=== PATIENT | female | born 1950 | race Caucasian/White ===

== ENCOUNTER 2018-02-21 19:42 | Inpatient (IN) | payer OTHER, MEDICARE ==
[~2018-02-21] VITALS: Ht 154.9 cm; Wt 126.8 kg
[~2018-02-21 19:42] MED LIST: CELE200 PO; GLUCTAB PO; HYDR12.56 PO; RAMI1.252 PO; TRAM50 PO
[2018-02-21 19:54] VITALS: BP 185/97; PULSE 115; RESP 22; TEMP 97.8; O2SAT 94
[2018-02-21 20:01] VITALS: RESP 18; O2SAT 94
--- NOTE | 2018-02-21 20:31 | PD ---
HPI Chief Complaint: Musculoskeletal Complaint Time Seen by Provider: 19:46 Travel History International Travel<30 days: No Contact w/Intl Traveler<30days: No Traveled to known affect area: No History of Present Illness HPI 67-year-old female that presents to the ED for evaluation of left sided weakness , slurred speech as well as left leg pain. Per patient and report given by ambulance patient apparently was seen at [facility] [place] today for evaluation of hypertension. Patient was given lisinopril. Patient had blood work and imaging that was essentially unremarkable. No CAT scan was done. Per patient she did complain of the left-sided weakness at the time and unclear why CT was not done. Patient denies any urinary or bowel movement issues. Per patient the pain on the left leg is from the knee down the ankle and has been ongoing since being released from the hospital. She did not have it when she went to the hospital. Per patient the weakness was present as well as the hypertension and tachycardia when she was in the hospital. Per patient she did took one lisinopril today with minimal improvement of symptoms. Her blood pressure allegedly was in the 200s systolic and now came down to the 180s. Patient denies any falls or injuries. Takes no blood thinners. Denies any surgeries to her legs but states that she has chronic edema. She denies any history of heart failure heart disease. All symptoms appear to be affecting the left side. Per patient she is noted that her speech is slurred since yesterday. All of her symptoms started yesterday except for the left leg pain. Denies any numbness, tingling. Denies any back or neck pain. Denies any fevers chills or sweats. Per patient she ambulates with a walker. Pain per patient is 7 out of 10 on the left leg. She does have a history of diabetes as well. PFSH Past Medical History Arthritis: Yes Diabetes: Yes Patient Takes Glucophage: Yes Gout: Yes Hypertension: Yes Tetanus Vaccination: Unknown Past Surgical History Other Surgery: Yes (HERNIA) Social History Alcohol Use: No Tobacco Use: No Substance Use: No Allergies-Medications (Allergen,Severity, Reaction): Coded Allergies: penicillin G (Unverified Allergy, Severe, Anaphylaxis, 06/06/17) Reported Meds & Prescriptions Reported Meds & Active Scripts Active Reported Ramipril 1.25 Mg Cap 1.25 Mg PO DAILY Esomeprazole DR 40 Mg Capdr 40 Mg PO DAILY Lisinopril 10 Mg Tab 10 Mg PO DAILY Celebrex (Celecoxib) 200 Mg Cap 200 Mg PO DAILY Metformin (Metformin HCl) 1,000 Mg Tab 1,000 Mg PO BIDPC Metoprolol Tartrate 100 Mg Tab 100 Mg PO DAILY Furosemide 40 Mg Tab 40 Mg PO DAILY Review of Systems Except as stated in HPI: all other systems reviewed are Neg Physical Exam Narrative GENERAL: Very obese SKIN: Warm and dry. HEAD: Atraumatic. Normocephalic. EYES: Pupils equal and round 4 mm reactive to light and accommodation. No scleral icterus. No injection or drainage. ENT: No nasal bleeding or discharge. Mucous membranes pink and moist. Tongue is midline. No uvula deviation. NECK: Trachea midline. No JVD. CARDIOVASCULAR: Regular rate and rhythm. No murmurs, S3, S4. RESPIRATORY: No accessory muscle use. Clear to auscultation. Breath sounds equal bilaterally. GASTROINTESTINAL: Abdomen soft, non-tender, nondistended. Hepatic and splenic margins not palpable. MUSCULOSKELETAL: Extremities without clubbing, cyanosis, or edema. No obvious deformities. Full range of motion of the upper and lower extremities bilaterally. Patient does have slight weakness on the left side compared to the right but very minimal if any. Patient does have 2+ pulses on all extremities. Patient does have 1+ pitting edema on the extremities bilaterally. No lumbar, thoracic, cervical spine tenderness to palpation. NEUROLOGICAL: Awake and alert. No obvious cranial nerve deficits. Motor grossly within normal limits. Five out of 5 muscle strength in the arms and legs. Slight slurred speech. PSYCHIATRIC: Appropriate mood and affect; insight and judgment normal. Data Data Last Documented VS Vital Signs Date Time Temp Pulse Resp B/P (MAP) Pulse Ox O2 Delivery O2 Flow Rate FiO2 02/21/18 20:01 18 94 Room Air 02/21/18 19:54 97.8 115 185/97 (126) Orders Orders Electrocardiogram (02/21/18 19:55) Complete Blood Count With Diff (02/21/18 19:55) Comprehensive Metabolic Panel (02/21/18 19:55) Ckmb (Isoenzyme) Profile (02/21/18 19:55) Troponin I (02/21/18 19:55) Prothrombin Time / Inr (Pt) (02/21/18 19:55) Act Partial Throm Time (Ptt) (02/21/18 19:55) Urinalysis - C+S If Indicated (02/21/18 19:55) Magnesium (Mg) (02/21/18 19:55) Thyroid Stimulating Hormone (02/21/18 19:55) Chest, Single Ap (02/21/18 19:55) Ct Brain W/O Iv Contrast(Rout) (02/21/18 19:55) Iv Access Insert/Monitor (02/21/18 19:55) Ecg Monitoring (02/21/18 19:55) Oximetry (02/21/18 19:55) Us Leg Venous Doppler (02/21/18 ) Tibia/Fibula (Ap/Lat) (02/21/18 ) Ct Pulmonary Angiogram (02/21/18 ) Iohexol 350 Inj (Omnipaque 350 Inj) (02/21/18 22:19) Admit Order (Ed Use Only) (02/21/18 22:54) Labs Laboratory Tests Test 02/21/18 20:30 02/21/18 20:40 White Blood Count 11.1 TH/MM3 Red Blood Count 5.30 MIL/MM3 Hemoglobin 16.0 GM/DL Hematocrit 46.5 % Mean Corpuscular Volume 87.7 FL Mean Corpuscular Hemoglobin 30.3 PG Mean Corpuscular Hemoglobin Concent 34.5 % Red Cell Distribution Width 14.3 % Platelet Count 245 TH/MM3 Mean Platelet Volume 8.9 FL Neutrophils (%) (Auto) 78.3 % Lymphocytes (%) (Auto) 15.7 % Monocytes (%) (Auto) 5.5 % Eosinophils (%) (Auto) 0.2 % Basophils (%) (Auto) 0.3 % Neutrophils # (Auto) 8.7 TH/MM3 Lymphocytes # (Auto) 1.7 TH/MM3 Monocytes # (Auto) 0.6 TH/MM3 Eosinophils # (Auto) 0.0 TH/MM3 Basophils # (Auto) 0.0 TH/MM3 CBC Comment DIFF FINAL Differential Comment Prothrombin Time 10.4 SEC Prothromb Time International Ratio 1.0 RATIO Activated Partial Thromboplast Time 24.3 SEC Blood Urea Nitrogen 18 MG/DL Creatinine 1.16 MG/DL Random Glucose 145 MG/DL Total Protein 7.2 GM/DL Albumin 3.7 GM/DL Calcium Level 9.7 MG/DL Magnesium Level 1.4 MG/DL Alkaline Phosphatase 109 U/L Aspartate Amino Transf (AST/SGOT) 17 U/L Alanine Aminotransferase (ALT/SGPT) 41 U/L Total Bilirubin 0.7 MG/DL Sodium Level 139 MEQ/L Potassium Level 3.8 MEQ/L Chloride Level 104 MEQ/L Carbon Dioxide Level 24.5 MEQ/L Anion Gap 11 MEQ/L Estimat Glomerular Filtration Rate 47 ML/MIN Total Creatine Kinase 54 U/L Troponin I 0.09 NG/ML Thyroid Stimulating Hormone 3rd Gen 3.310 uIU/ML Urine Color YELLOW Urine Turbidity CLEAR Urine pH 6.0 Urine Specific [place] 1.013 Urine Protein NEG mg/dL Urine Glucose (UA) NEG mg/dL Urine Ketones NEG mg/dL Urine Occult Blood NEG Urine Nitrite NEG Urine Bilirubin NEG Urine Urobilinogen LESS THAN 2.0 MG/DL Urine Leukocyte Esterase TRACE Urine WBC 2 /hpf Urine Squamous Epithelial Cells 2 /hpf Microscopic Urinalysis Comment CULT NOT INDICATED MDM Medical Decision Making Medical Screen Exam Complete: Yes Emergency Medical Condition: Yes Medical Record Reviewed: Yes Interpretation(s) CBC & BMP Diagram 02/21/18 20:30 Total Protein 7.2, Albumin 3.7, Calcium Level 9.7, Magnesium Level 1.4 L, Alkaline Phosphatase 109, Aspartate Amino Transf (AST/SGOT) 17, Alanine Aminotransferase (ALT/SGPT) 41, Total Bilirubin 0.7 Last Impressions Chest X-Ray 02/21/181954 Signed Impressions: Service Date/Time: February 20:01 - CONCLUSION: 1. Minimal basilar atelectasis. Andrés Recinos MD Tibia/Fibula X-Ray 02/21/18 Signed Impressions: Service Date/Time: February 20:03 - CONCLUSION: 1. Advanced osteoarthritis of the left knee. No acute bony abnormality. Andrés Recinos MD Lower Extremity Ultrasound 02/21/18 Signed Impressions: Service Date/Time: February 21:23 - CONCLUSION: 1. Negative for deep venous thrombosis. There is a left popliteal fossa cyst measuring up to 5.6 x 4.2 x 1.[address] cm[address] Andrés Recinos MD CT head negative for acute disease CT pulm negative for acute disease Differential Diagnosis Hypertension versus hypertensive emergency versus CVA versus TIA versus DVT versus weakness versus normal exam versus fracture Narrative Course 67-year-old female that presents to the ED for evaluation of left-sided weakness , slurred speech and left leg pain. Patient was properly examined and was found to have signs and symptoms of unclear etiology but definitely concerning for possible CVA versus TIA. I did review the patient's paperwork from the [facility]. No CT was ordered per orders. Unclear as to why but unclear if the patient actually complained of the same symptoms she is complaining now. I will try to get the medical records from [facility]. Labs and imaging were ordered here. Patient was found to be slightly tachycardic and hypertensive. Labs and imaging showed positive troponin otherwise unremarkable for acute disease. Patient still hypertensive here. Patient complains of left- sided weakness with slurred speech that started since last night. Patient does have risk factors for CVA. The recommend further workup for TIA versus CVA. My attending Dr Clarke agrees with plan. Was able to get records from [facility] from today and patient apparently complained of HTN and urinary incontinence since sunday. No mention of slurred speech or weakness on the note. No troponin ordered during that evaluation to compare. Patient agrees with admission. ARNEL phelps and Dr Martínez agrees to admission. Diagnosis Primary Impression: Left-sided weakness Additional Impressions: Hypertension Qualified Codes: I10 - Essential (primary) hypertension Elevated troponin Admitting Information Admitting Physician Requests: Aldair Ward February 21, 2018 20:31
--- NOTE | 2018-02-21 20:49 | RADRPT ---
EXAM DATE/TIME: 02/21/2018 20:01 [facility] COMPARISON: No previous studies available for comparison. INDICATIONS : Syncope MEDICAL HISTORY : None. SURGICAL HISTORY : None. ENCOUNTER: Initial ACUITY: 1 day PAIN SCORE: 0/10 LOCATION: Bilateral chest FINDINGS: A single view of the chest demonstrates the lungs to be symmetrically aerated without evidence of mas s, infiltrate or effusion. Mild basilar and dependent atelectasis. The cardiomediastinal contours are unremarkable. Osseous structures are intact. CONCLUSION: 1. Minimal basilar atelectasis. Andrés Recinos MD on February 21, 2018 at 20:47 Board Certified Radiologist. This report was verified electronically.
--- NOTE | 2018-02-21 20:53 | RADRPT ---
EXAM DATE/TIME: 02/21/2018 20:03 [facility] COMPARISON: No previous studies available for comparison. INDICATIONS : Pain MEDICAL HISTORY : None. SURGICAL HISTORY : None. ENCOUNTER: Initial ACUITY: 1 day PAIN SCORE: 3/10 LOCATION: Left lower extremity FINDINGS: Two view examination of the left tibia demonstrates advanced osteoarthritis of the left knee especial ly medially. No acute fracture or dislocation. CONCLUSION: 1. Advanced osteoarthritis of the left knee. No acute bony abnormality. Andrés Recinos MD on February 21, 2018 at 20:48 Board Certified Radiologist. This report was verified electronically.
[2018-02-21 20:59] LABS: AUTOMATED NEUTROPHIL # 8.7 TH/MM3 (1.8-7.7); BASOPHIL % 0.3 % (0.0-2.0); EOSINOPHIL % 0.2 % (0.0-4.0); HEMATOCRIT 46.5 % (35.0-46.0); LYMPH % 15.7 % (9.0-44.0); LYMPHOCYTE # 1.7 TH/MM3 (1.0-4.8); MEAN CELL VOLUME 87.7 FL (80.0-100.0); MEAN CORPUSCULAR HEMOGLOBIN 30.3 PG (27.0-34.0); MEAN CORPUSCULAR HGB CONC 34.5 % (32.0-36.0); MEAN PLATELET VOLUME 8.9 FL (7.0-11.0); MONO % 5.5 % (0.0-8.0); MONOCYTE # 0.6 TH/MM3 (0-0.9); NEUT % 78.3 % (16.0-70.0); PLATELET COUNT 245 TH/MM3 (150-450); RED CELL DISTRIBUTION WIDTH 14.3 % (11.6-17.2); WHITE BLOOD COUNT 11.1 TH/MM3 (4.0-11.0)
[2018-02-21 21:05] LABS: BILIRUBIN, URINE NEG (NEG); BLOOD, URINE NEG (NEG); GLUCOSE,URINE NEG (NEG); KETONE, URINE NEG (NEG); NITRITE,URINE NEG (NEG); SQUAMOUS EPITHELIAL CELL URINE 2 /hpf (0-5); URINE COLOR YELLOW (YELLW/STRAW); URINE LEUKOCYTE ESTERASE TRACE (NEG)
[2018-02-21 21:22] LABS: PROTHROMBIN TIME - PATIENT 10.4 SEC (9.8-11.6)
[2018-02-21 21:23] LABS: ALBUMIN 3.7 GM/DL (3.4-5.0); AST (GOT) 17 U/L (15-37); BICARBONATE 24.5 MEQ/L (21.0-32.0); BLOOD UREA NITROGEN 18 MG/DL (7-18); CALCIUM 9.7 MG/DL (8.5-10.1); CHLORIDE 104 MEQ/L (98-107); CREATININE 1.16 MG/DL (0.50-1.00); GLOMERULAR FILTRATION RATE 47 ML/MIN (>89); GLUCOSE,RANDOM 145 MG/DL (74-106); MAGNESIUM 1.4 MG/DL (1.5-2.5); SODIUM (NA) 139 MEQ/L (136-145)
[2018-02-21 21:24] LABS: ALT (GPT) 41 U/L (10-53)
[2018-02-21] MEDS ORDERED: ESOM1CAP16 PO (21:28)
[2018-02-21] MEDS ORDERED: RAMI1.252 PO (21:28)
[2018-02-21] MEDS ORDERED: METO100T PO (21:28)
[2018-02-21] MEDS ORDERED: LISI10TA3 PO (21:28)
[2018-02-21] MEDS ORDERED: FURO40TA PO (21:28)
[2018-02-21] MEDS ORDERED: METF1000 PO (21:28)
[2018-02-21] MEDS ORDERED: CELE200C PO (21:28)
[2018-02-21 21:34] LABS: ALKALINE PHOSPHATASE 109 U/L (45-117); TOTAL BILIRUBIN ADULT 0.7 MG/DL (0.2-1.0); TOTAL PROTEIN 7.2 GM/DL (6.4-8.2); TROPONIN I 0.09 NG/ML (0.02-0.05)
--- NOTE | 2018-02-21 22:18 | RADRPT ---
EXAM DATE/TIME: 02/21/2018 21:23 [facility] COMPARISON: No previous studies available for comparison. INDICATIONS : Left leg pain. MEDICAL HISTORY : Hypertension. Arthritis. GOUT. Diabetes. SURGICAL HISTORY : Hernia repair. ENCOUNTER: Initial ACUITY: 4 - 6 days PAIN SCORE: 3/10 LOCATION: Left leg. TECHNIQUE: Venous ultrasound of the leg was performed from the inguinal ligament to the proximal calf. Real-naldo e, color Doppler and spectral tracing, compression and augmentation techniques were used. FINDINGS: There is normal compressibility of the deep venous system from the inguinal region to the proximal ca lf. No echogenic clot is seen in the lumen of the common femoral, femoral, popliteal, and posterior tibial veins. There is a normal response of the venous system to proximal and distal augmentation an d respiration. CONCLUSION: 1. Negative for deep venous thrombosis. There is a left popliteal fossa cyst measuring up to 5.6 x 4. 2 x 1.6 cm. Andrés Recinos MD on February 21, 2018 at 22:13 Board Certified Radiologist. This report was verified electronically.
[2018-02-21] MEDS ORDERED: IOHEXOL 350 MG/ML 10 ML VIAL (for RAD DIAG) IVCONTRAST ONE (22:19)
--- NOTE | 2018-02-21 22:31 | RADRPT ---
EXAM DATE/TIME: 02/21/2018 22:02 [facility] COMPARISON: No previous studies available for comparison. INDICATIONS : Shortness of breath IV CONTRAST: 74 cc Omnipaque 350 (iohexol) IV RADIATION DOSE: 22.91 CTDIvol (mGy) MEDICAL HISTORY : Hypertension. Diabetes mellitus type 2. SURGICAL HISTORY : None. ENCOUNTER: Initial ACUITY: 1 day PAIN SCALE: 1/10 LOCATION: chest TECHNIQUE: Volumetric scanning of the chest was performed using a pulmonary embolism protocol MIP images were re constructed. Using automated exposure control and adjustment of the mA and/or kV according to patien t size, radiation dose was kept as low as reasonably achievable to obtain optimal diagnostic quality images. DICOM format image data is available electronically for review and comparison. Follow-up recommendations for detected pulmonary nodules are based at a minimum on nodule size and pa tient risk factors according to Fleischner Society Guidelines. FINDINGS: No filling defects to suggest pulmonary embolus. Scattered minimal atelectasis or scarring in the mati gs. No pleural or pericardial effusion. No acute findings in the upper abdomen. Mild fatty liver. CONCLUSION: 1. No filling defects to suggest pulmonary embolus. Scattered minimal atelectasis or scarring in the lungs. No effusions. Andrés Recinos MD on February 21, 2018 at 22:27 Board Certified Radiologist. This report was verified electronically.
--- NOTE | 2018-02-21 22:34 | RADRPT ---
EXAM DATE/TIME: 02/21/2018 21:54 [facility] COMPARISON: No previous studies available for comparison. INDICATIONS : General weakness, head pain RADIATION DOSE: 60.35 CTDIvol (mGy) MEDICAL HISTORY : Hypertension. Diabetes mellitus type 2. SURGICAL HISTORY : None. ENCOUNTER: Initial ACUITY: 1 day PAIN SCALE: 2/10 LOCATION: cranial TECHNIQUE: Multiple contiguous axial images were obtained of the head. Using automated exposure control and adj ustment of the mA and/or kV according to patient size, radiation dose was kept as low as reasonably a chievable to obtain optimal diagnostic quality images. DICOM format image data is available electro nically for review and comparison. FINDINGS: No acute intracranial mass, hemorrhage or shift. Remote infarct right periventricular white matter. C hronic white matter ischemic changes. No acute bony abnormality. CONCLUSION: 1. Remote infarct right periventricular white matter with white matter ischemic changes. No acute fin dings. Andrés Recinos MD on February 21, 2018 at 22:29 Board Certified Radiologist. This report was verified electronically.
[2018-02-21] MEDS ORDERED: GADODIAMIDE PF 287 MG/ML 20 ML VIAL (for RAD MRI) IVCONTRAST ONE (22:57)
[2018-02-21] MEDS ORDERED: GLUCAGON 1 MG/ML VIAL OTHER PRN (23:15)
[2018-02-21] MEDS ORDERED: SENNOSIDES 8.6 MG TAB PO PRN (23:15)
[2018-02-21] MEDS ORDERED: SODIUM CHLORIDE 0.9% FLUSH 10 ML FLUSH IV FLUSH PRN (23:15)
[2018-02-21] MEDS ORDERED: DEXTROSE 50% IN WATER 50 ML VIAL(D50) IV PUSH PRN (23:15)
[2018-02-21] MEDS ORDERED: MAGNESIUM HYDROXIDE SUSP 30 ML CUP PO PRN (23:15)
[2018-02-21] MEDS ORDERED: NALOXONE HCL 0.4 MG/ML AMP IV PUSH PRN (23:15)
[2018-02-21] MEDS ORDERED: BISACODYL 10 MG SUPP RECTAL PRN (23:15)
[2018-02-21] MEDS ORDERED: MAGNESIUM SULFATE 1 GM PREMIX 100 ML IV ONE (23:15)
[2018-02-21 23:37] VITALS: BP 156/90; PULSE 106; RESP 16; O2SAT 96
[2018-02-21] MEDS: SODIUM CHLOR 0.9% 1000 ML INJ 1,000 ML IV SCH (23:37)
[2018-02-21] MEDS ORDERED: ASPIRIN 81 MG CHEW TAB CHEW ONE (23:45)
--- NOTE | 2018-02-21 23:45 | HHI.HP ---
HPI Service [facility] Primary Care Physician Unknown Admission Diagnosis CVA/TIA r/o, hypertension, positive troponin Diagnoses: Travel History International Travel<30 Days: No Contact w/Intl Traveler <30 Da: No Traveled to Known Affected Are: No History of Present Illness 67-year-old female with past medical history significant for rheumatoid arthritis, diabetes mellitus, hypertension, hyperlipidemia and history of previous PE 3 years ago presents to the emergency department for the evaluation of weakness and slurred speech. The patient has a 3 day history of bilateral lower extremity weakness that then transitions to her left side approximately 2 days ago. She reports that she has left upper and lower extremity weakness that has not improved over the past 2 days. Her also reports intermittent slurred speech. The patient was seen at [facility] earlier today where she was treated for hypertension and released. The patient denies any headaches. No slurred speech at this time. Does have slight left-sided weakness. Denies any chest pain or shortness of breath. No abdominal pain. No nausea/vomiting/diarrhea. No fever/chills Review of Systems Except as stated in HPI: all other systems reviewed are Neg Past Family Social History Past Medical History Rheumatoid arthritis Diabetes mellitus Hypertension Hyperlipidemia History of PE Past Surgical History Hernia repair Reported Medications Reported Meds & Active Scripts Active Reported Ramipril 1.25 Mg Cap 1.25 Mg PO DAILY Esomeprazole DR 40 Mg Capdr 40 Mg PO DAILY Lisinopril 10 Mg Tab 10 Mg PO DAILY Celebrex (Celecoxib) 200 Mg Cap 200 Mg PO DAILY Metformin (Metformin HCl) 1,000 Mg Tab 1,000 Mg PO BIDPC Metoprolol Tartrate 100 Mg Tab 100 Mg PO DAILY Furosemide 40 Mg Tab 40 Mg PO DAILY Allergies: Coded Allergies: penicillin G (Unverified Allergy, Severe, Anaphylaxis, 06/06/17) Family History Negative for CAD/DM Social History Denies alcohol, tobacco and illicit drugs. Physical Exam Vital Signs Vital Signs Date Time Temp Pulse Resp B/P (MAP) Pulse Ox O2 Delivery O2 Flow Rate FiO2 02/21/18 20:01 18 94 Room Air 02/21/18 19:54 97.8 115 22 185/97 (126) 94 Physical Exam GENERAL: Obese, female sitting up in bed SKIN: No rashes, ecchymoses or lesions. Cool and dry. HEAD: Atraumatic. Normocephalic. No temporal or scalp tenderness. EYES: Pupils equal round and reactive. Extraocular motions intact. No scleral icterus. No injection or drainage. ENT: Nose without bleeding, purulent drainage or septal hematoma. Throat without erythema, tonsillar hypertrophy or exudate. Uvula midline. Airway patent. Poor dentition. NECK: Trachea midline. No JVD or lymphadenopathy. Supple, nontender, no meningeal signs. CARDIOVASCULAR: Regular rate and rhythm without murmurs, gallops, or rubs. RESPIRATORY: Clear to auscultation. Breath sounds equal bilaterally. No wheezes , rales, or rhonchi. GASTROINTESTINAL: Abdomen soft, non-tender, nondistended. No hepato-splenomegaly , or palpable masses. No guarding. MUSCULOSKELETAL: Extremities without clubbing, cyanosis, or edema. No joint tenderness, effusion, or edema noted. No calf tenderness. NEUROLOGICAL: Awake and alert. Cranial nerves II through XII intact. Normal speech. 4/5 left hand supervisor loading strength. Patient unable to lift her left leg off the bed however plantar flexion and extension 5/5. Patient able to barely lift right lower extremity off the bed. May be secondary to body habitus. Laboratory Laboratory Tests Test 02/21/18 20:30 02/21/18 20:40 White Blood Count 11.1 Red Blood Count 5.30 Hemoglobin 16.0 Hematocrit 46.5 Mean Corpuscular Volume 87.7 Mean Corpuscular Hemoglobin 30.3 Mean Corpuscular Hemoglobin Concent 34.5 Red Cell Distribution Width 14.3 Platelet Count 245 Mean Platelet Volume 8.9 Neutrophils (%) (Auto) 78.3 Lymphocytes (%) (Auto) 15.7 Monocytes (%) (Auto) 5.5 Eosinophils (%) (Auto) 0.2 Basophils (%) (Auto) 0.3 Neutrophils # (Auto) 8.7 Lymphocytes # (Auto) 1.7 Monocytes # (Auto) 0.6 Eosinophils # (Auto) 0.0 Basophils # (Auto) 0.0 CBC Comment DIFF FINAL Differential Comment Prothrombin Time 10.4 Prothromb Time International Ratio 1.0 Activated Partial Thromboplast Time 24.3 Blood Urea Nitrogen 18 Creatinine 1.16 Random Glucose 145 Total Protein 7.2 Albumin 3.7 Calcium Level 9.7 Magnesium Level 1.4 Alkaline Phosphatase 109 Aspartate Amino Transf (AST/SGOT) 17 Alanine Aminotransferase (ALT/SGPT) 41 Total Bilirubin 0.7 Sodium Level 139 Potassium Level 3.8 Chloride Level 104 Carbon Dioxide Level 24.5 Anion Gap 11 Estimat Glomerular Filtration Rate 47 Total Creatine Kinase 54 Troponin I 0.09 Thyroid Stimulating Hormone 3rd Gen 3.310 Urine Color YELLOW Urine Turbidity CLEAR Urine pH 6.0 Urine Specific [place] 1.013 Urine Protein NEG Urine Glucose (UA) NEG Urine Ketones NEG Urine Occult Blood NEG Urine Nitrite NEG Urine Bilirubin NEG Urine Urobilinogen LESS THAN 2.0 Urine Leukocyte Esterase TRACE Urine WBC 2 Urine Squamous Epithelial Cells 2 Microscopic Urinalysis Comment CULT NOT INDICATED Result Diagram: 02/21/18202902/21/182029 Sally VTE Risk Assessment Caprini VTE Risk Assessment: Mod/High Risk (score >= 2) Caprini Risk Assessment Model Point Value = 1 Point Value = 2 Point Value = 3 Point Value = 5 Age 41-60 Minor surgery BMI > 25 kg/m2 Swollen legs Varicose veins or History of unexplained or recurrent spontaneous Oral contraceptives or hormone replacement Sepsis (< 1 month) Serious lung disease, including pneumonia (< 1 month) Abnormal pulmonary function Acute myocardial infarction Congestive heart failure (< 1 month) History of inflammatory bowel disease Medical patient at bed rest Age 61-74 Arthroscopic surgery Major open surgery (> 45 min) Laparoscopic surgery (> 45 min) Malignancy Confined to bed (> 72 hours) Immobilizing plaster cast Central venous access Age >= 75 History of VTE Family history of VTE Factor V Leiden Prothrombin [id number] Lupus anticoagulant Anticardiolipin antibodies Elevated serum homocysteine Heparin-induced thrombocytopenia Other congenital or acquired thrombophilia Stroke (< 1 month) Elective arthroplasty Hip, pelvis, or leg fracture Acute spinal cord injury (< 1 month) Prophylaxis Regimen Total Risk Factor Score Risk Level Prophylaxis Regimen 0-1 Low Early ambulation 2 Moderate Order ONE of the following: *Sequential Compression Device (SCD) *Heparin 5000 units SQ BID 3-4 Higher Order ONE of the following medications: *Heparin 5000 units SQ TID *Enoxaparin/Lovenox 40 mg SQ daily (WT < 150 kg, CrCl > 30 mL/min) *Enoxaparin/Lovenox 30 mg SQ daily (WT < 150 kg, CrCl > 10-29 mL/min) *Enoxaparin/Lovenox 30 mg SQ BID (WT < 150 kg, CrCl > 30 mL/min) AND/OR *Sequential Compression Device (SCD) 5 or more Highest Order ONE of the following medications: *Heparin 5000 units SQ TID (Preferred with Epidurals) *Enoxaparin/Lovenox 40 mg SQ daily (WT < 150 kg, CrCl > 30 mL/min) *Enoxaparin/Lovenox 30 mg SQ daily (WT < 150 kg, CrCl > 10-29 mL/min) *Enoxaparin/Lovenox 30 mg SQ BID (WT < 150 kg, CrCl > 30 mL/min) AND *Sequential Compression Device (SCD) Assessment and Plan Assessment and Plan Assessment/plan: 1.? CVA/TIA Head CT significant for remote infarct in the right periventricular white matter , no acute findings Questionable residual left-sided hand supervisor loading and left lower extremity strength although patient's participation in the exam is unclear MRI/MRA/carotid ultrasound pending Neurology consulted, appreciate recommendations Aspirin 2. Elevated troponin Initial troponin 0 0.09, no baseline for comparison EKG shows sinus rhythm without ST segment elevations or depressions, personally reviewed Patient denies any chest pain or shortness of breath ACS rule out pending; serial troponins/EKGs 3. Diabetes mellitus Holding home Metformin Sliding-scale insulin Monitor blood glucose 4. History of PE Prophylactic anticoagulation with heparin 5. Hypertension/hyperlipidemia Continue home medications once medication reconciliation complete FEN N.p.o. Electrolytes: Monitor and replete as needed Heparin NS at 100 cc/hr Savannah Martínez MD February 21, 2018 23:45
[2018-02-22] VITALS (8 sets, daily range): BP systolic 138–181; BP diastolic 62–97; PULSE 62–104; RESP 18–20; TEMP 98–98.6; O2SAT 96–98
[2018-02-22 03:02] LABS: AUTOMATED NEUTROPHIL # 8.7 TH/MM3 (1.8-7.7); BASOPHIL # 0.1 TH/MM3 (0-0.2); BASOPHIL % 0.7 % (0.0-2.0); EOSINOPHIL # 0.1 TH/MM3 (0-0.4); EOSINOPHIL % 1.1 % (0.0-4.0); HEMATOCRIT 43.3 % (35.0-46.0); LYMPHOCYTE # 2.3 TH/MM3 (1.0-4.8); MEAN CELL VOLUME 88.9 FL (80.0-100.0); MEAN CORPUSCULAR HEMOGLOBIN 30.8 PG (27.0-34.0); MEAN CORPUSCULAR HGB CONC 34.6 % (32.0-36.0); MEAN PLATELET VOLUME 8.9 FL (7.0-11.0); MONO % 6.3 % (0.0-8.0); MONOCYTE # 0.8 TH/MM3 (0-0.9); NEUT % 72.9 % (16.0-70.0); PLATELET COUNT 220 TH/MM3 (150-450); RED BLOOD COUNT 4.88 MIL/MM3 (4.00-5.30); RED CELL DISTRIBUTION WIDTH 14.2 % (11.6-17.2); WHITE BLOOD COUNT 11.9 TH/MM3 (4.0-11.0)
[2018-02-22 03:17] LABS: BICARBONATE 27.6 MEQ/L (21.0-32.0); CALCIUM 9.2 MG/DL (8.5-10.1); CREATININE 1.12 MG/DL (0.50-1.00)
[2018-02-22 03:20] LABS: CHOLESTEROL/ HDL RATIO 5.2 RATIO; HDL CHOLESTEROL 27.3 MG/DL (40.0-60.0); TROPONIN I 0.09 NG/ML (0.02-0.05)
[2018-02-22] MEDS: INSULIN ASPART SUPPLEMENTAL SCALE SQ SCH ×4 (08:00→20:45)
[2018-02-22] MEDS ORDERED: LORazepam 2 MG/ML VIAL IV PUSH PRN (08:30)
[2018-02-22] MEDS: SODIUM CHLOR 0.9% 1000 ML INJ 1,000 ML IV SCH ×4 (09:01→22:27)
[2018-02-22] MEDS: ASPIRIN 325 MG TAB PO SCH (09:03)
[2018-02-22] MEDS: ONDANSETRON HCL 4 MG/2 ML VIAL IVP PRN (09:04)
[2018-02-22] MEDS: SODIUM CHLORIDE 0.9% FLUSH 10 ML FLUSH IV FLUSH SCH ×2 (09:05→20:46)
--- NOTE | 2018-02-22 09:20 | RADRPT ---
EXAM DATE/TIME: 02/22/2018 08:21 [facility] COMPARISON: No previous studies available for comparison. INDICATIONS : Cerebrovascular accident. MEDICAL HISTORY : Osteoarthritis. Hypertension. Chronic edema. Gout. Diabetes. Obesity. Hyperli pidemia. Pulmonary embolism. Tachycardia. SURGICAL HISTORY : Hernia repair. ENCOUNTER: Initial ACUITY: 2 days PAIN SCORE: 0/10 LOCATION: Bilateral neck PEAK SYSTOLIC VELOCITIES (cm/sec): ICA/CCA RATIO: Right: 1.2 Left: 1.6 ICA: Right: 107 Left: 102 CCA: Right: 89 Left: 63 ECA: Right: 62 Left: 67 VERTEBRAL: Right: 26 antegrade Left: 33 antegrade Elevated flow velocities and ICA/CCA ratios have been found to correlate with increased degrees of vessel stenosis, calculated as percentage of diameter relative to a normal segment of distal ICA/CCA FINDINGS: RIGHT CAROTID: No significant stenosis is visualized. The waveforms are within normal limits. LEFT CAROTID: No significant stenosis is visualized. The waveforms are within normal limits. VERTEBRAL ARTERIES: Antegrade flow is seen in both vertebral arteries. MISCELLANEOUS: None. CONCLUSION: 1. Elevated velocities in the proximal common carotid artery which may reflect an ostial stenosis not imaged on this exam. 2. Mild bilateral carotid plaque with mild, less than 50%, stenosis. Pro Tejeda MD on February 22, 2018 at 9:14 Board Certified Radiologist. This report was verified electronically.
--- NOTE | 2018-02-22 09:37 | MB ---
cc: Willem Ding MD DATE: 02/22/2018 HISTORY OF PRESENT ILLNESS: A 67-year-old left-handed woman with a history of hypertension, non-insulin dependent diabetes, hypercholesterolemia, PE about 3 years ago, she was on Coumadin at that time. No longer taking that nor any blood thinners, not on aspirin. Two days ago, her blood pressure was up. She also felt like her talking was off and a little bit weak on the left. Subsequently admitted to the hospital here. REVIEW OF SYSTEMS: She denies any headache, chest pain or palpitation. She says she feels a little dizzy and nauseous. She denies any history of OR, stent, angioplasty, AFib, Coumadin, renal, hepatic disease, other pulmonary diseases, thyroid lupus, ulcer, cancer, seizure or stroke. SOCIAL HISTORY: Not a smoker or drinker. Lives with her . FAMILY HISTORY: Positive for cancer in her daughter. Negative for seizure or stroke. MEDICATIONS: 1. Ramipril. 2. Omeprazole. 3. Lisinopril. 4. Celebrex. 5. Metformin. 6. Metoprolol. 7. Lasix. ALLERGIES: PENICILLIN. PHYSICAL EXAMINATION: VITAL SIGNS: She has been in sinus rhythm. Afebrile, 101/18. Sinus tachycardia. 170/95-185/97. NECK: There were no carotid bruits. HEART: Regular rhythm. I did not detect a murmur. GENERAL: She is quite obese. NEUROLOGIC: Pupils are equal. Visual maldonado are full. Extraocular movements intact without nystagmus. There is a left lower facial droop. Tongue was midline. She has got a positive drift on the left. She has normal strength in right upper and lower extremities and the left triceps and finger extensors were normal. Left deltoid is a bit weak, about a 4+/5. In the left lower extremity she is a little bit weak in the iliopsoas, about a 4+/5. Toes are downgoing bilaterally. DTRs are absent throughout. Pinprick is intact throughout upper and lower extremities bilaterally and face. She is not ataxic on [id number]. Speech is slightly slurred, but not aphasic. LABORATORY DATA: White count 11.9, otherwise CBC is normal. UA is negative. Basic metabolic profile was essentially unremarkable. LDL 70, triglycerides 226. TSH normal. Coags normal. CPK was normal. Troponin 0.09. IMAGING STUDIES: CAT scan of the brain shows what looks like an old infarct in the right basal ganglia. However, she tells me she has never been weak on the left before. On review of those films, it does look like one confluent old infarct on the right basal ganglia and maybe a little bit of a hypodensity on the right occipital lobe region versus artifact. IMPRESSION: Possible new stroke. RECOMMENDATIONS: We will check an MRI of the brain, MRA of the neck and ely [place], give her some IV hydration, put her on an aspirin a day, and I will be following her with you in the hospital. I will also do routine stroke workup on her. MD DEISI Moore/ANTONETTE , 09:02 AM , 09:35 AM
[2018-02-22 10:18] LABS: TROPONIN I 0.09 NG/ML (0.02-0.05)
[2018-02-22 11:12] LABS: ALT (GPT) 34 U/L (10-53); AST (GOT) 13 U/L (15-37)
[2018-02-22 11:37] LABS: FOLATE GREATER THAN 20.0 NG/ML (3.1-17.5)
--- NOTE | 2018-02-22 11:51 | RADRPT ---
EXAM DATE/TIME: 02/22/2018 10:06 [facility] COMPARISON: No previous studies available for comparison. INDICATIONS : Dizziness. CONTRAST: 20 cc Omniscan (gadodiamide) IV MEDICAL HISTORY : Hypertension. Diabetes mellitus type 2. PE SURGICAL HISTORY : Umbilical hernia repair. ENCOUNTER: Subsequent ACUITY: 2 day PAIN SCORE: 0/10 LOCATION: cranial Percent stenosis is calculated using the diameter of the stenotic region over the diameter of the nor mal distal internal carotid artery. TECHNIQUE: Bolus infused MRA of the extracranial circulation was performed using a neurovascular coil. Post pro cessing was performed including rotating subvolume maximum intensity projections of each carotid jose alberto ry, rotating full volume maximum intensity projections of both carotid arteries, sagittal and coronal sliding thin slab reformations of each carotid artery, and left oblique sliding thin slab reformatio n through the aortic arch to include the origin of the arch branch vessels. FINDINGS: AORTIC ARCH: There is a three vessel origin of the great vessels from the aorta. No evidence of ostial narrowing. RIGHT CAROTID: The common carotid artery is intact. The carotid bulb has a normal configuration without ulceration or narrowing. The internal carotid artery lumen is smooth without stenosis. The external carotid ar mary is intact. LEFT CAROTID: The common carotid artery is intact. The carotid bulb has a normal configuration without ulceration or narrowing. The internal carotid artery lumen is smooth without stenosis. The external carotid ar mary is intact. VERTEBRALS: The vertebral arteries have a symmetric diameter. No stenotic lesions are seen. CONCLUSION: Negative MRA of the carotids for source of emboli. Aleksandr Clay MD FACR on February 22, 2018 at 11:49 Board Certified Radiologist. This report was verified electronically.
--- NOTE | 2018-02-22 11:51 | RADRPT ---
EXAM DATE/TIME: 02/22/2018 10:06 [facility] COMPARISON: No previous studies available for comparison. INDICATIONS : Dizziness. CONTRAST: 20 cc Omniscan (gadodiamide) IV MEDICAL HISTORY : Hypertension. Diabetes mellitus type 2. PE SURGICAL HISTORY : Umbilical hernia repair. ENCOUNTER: Subsequent ACUITY: 2 day PAIN SCORE: 0/10 LOCATION: cranial TECHNIQUE: Multiplanar, multisequence MRI of the brain was performed both prior to and following the administrat ion of paramagnetic contrast. FINDINGS: Marked periventricular white matter changes are evident extending into the brainstem. There is focal restricted diffusion in the vasoganglia right side without hemorrhage sitting just abo ve the internal capsule measuring 2.5 cm x 1.3 cm. There is mild central and cortical atrophy. No extra-axial fluid collections appreciated. Ischemic changes extend into the brainstem without hemorrhage or restricted diffusion. There is no abnormal contrast enhancement appreciated. CONCLUSION: Acute infarct the high basal ganglia right side without enhancement or hemorrhage. Aleksandr Clay MD FACR on February 22, 2018 at 11:46 Board Certified Radiologist. This report was verified electronically.
--- NOTE | 2018-02-22 11:52 | RADRPT ---
EXAM DATE/TIME: 02/22/2018 10:06 [facility] COMPARISON: No previous studies available for comparison. INDICATIONS : Dizziness. MEDICAL HISTORY : Hypertension. Diabetes mellitus type 2. PE SURGICAL HISTORY : Umbilical hernia repair. ENCOUNTER: Subsequent ACUITY: 2 day PAIN SCORE: 0/10 LOCATION: cranial Please note a normal MRA of the brain does not entirely exclude the possibility of a small aneurysm, nor the possibility of distal intracranial vessel disease. TECHNIQUE: 3D time of flight MRA was performed. Source images, multiplanar STS MIP, and 3D volume MIP reconstru ctions were reviewed. FINDINGS: Stenosis M2 segment left middle cerebral artery at the genu. Moderate intracranial atherosclerotic vascular disease Bibasilar artery patent CONCLUSION: Moderate to high-grade stenosis M2 segment the left middle cerebral artery. Aleksandr Clay MD FACR on February 22, 2018 at 11:49 Board Certified Radiologist. This report was verified electronically.
[2018-02-22] MEDS: HEPARIN SODIUM - SQ 10,000 UNITS/ML VIAL SQ SCH ×3 (12:45→20:45)
[2018-02-22] MEDS: NYSTATIN 100,000 U/GM PWD 15 GM BTL TOPICAL SCH ×2 (14:00→20:46)
--- NOTE | 2018-02-22 14:08 | HHI.PR ---
Subjective Remarks Follow-up for acute stroke. Patient is currently resting in bed. At the time of this interview she was getting prepared to undergo carotid ultrasound. Patient denies any chest pain, shortness of breath, fever or chills. Objective Vitals Vital Signs Date Time Temp Pulse Resp B/P (MAP) Pulse Ox O2 Delivery O2 Flow Rate FiO2 02/22/18 12:28 98.2 78 18 138/62 (87) 96 02/22/18 03:46 98.0 101 18 170/95 (120) 97 02/22/18 00:16 98.3 104 18 181/97 (125) 96 02/21/18 23:37 106 16 156/90 (112) 96 Room Air 02/21/18 20:01 18 94 Room Air 02/21/18 19:54 97.8 115 22 185/97 (126) 94 I/O 02/21/18 02/21/18 02/21/18 02/22/18 02/22/18 02/22/18 07:00 15:00 23:00 07:00 15:00 23:00 Intake Total 400 ml Balance 400 ml Intake Oral 400 ml Result Diagram: 02/22/18 0240 02/22/18 0240 Imaging Last Impressions Neck Magnetic Resonance Angiography 02/22/18900 Signed Impressions: Service Date/Time: Thursday, February 22, 2018 10:06 - CONCLUSION: Negative MRA of the carotids for source of emboli. Aleksandr Clay MD FACR Brain MRI 02/22/18 09 Signed Impressions: Service Date/Time: Thursday, February 22, 2018 10:06 - CONCLUSION: Acute infarct the high basal ganglia right side without enhancement or hemorrhage. 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 Aleksandr Clay MD FACR Carotid Artery Ultrasound 02/22/18 0000 Signed Impressions: Service Date/Time: Thursday, February 22, 2018 08:21 - CONCLUSION: 1. Elevated velocities in the proximal common carotid artery which may reflect an ostial stenosis not imaged on this exam. 2. Mild bilateral carotid plaque with mild, less than 50%%, stenosis. Pro Tejeda MD Head CT 02/21/181954 Signed Impressions: Service Date/Time: February 21:54 - CONCLUSION: 1. Remote infarct right periventricular white matter with white matter ischemic changes. No acute findings. Andrés Recinos MD Chest X-Ray 02/21/181954 Signed Impressions: Service Date/Time: February 20:01 - CONCLUSION: 1. Minimal basilar atelectasis. Andrés Recinos MD Tibia/Fibula X-Ray 02/21/18 Signed Impressions: Service Date/Time: February 20:03 - CONCLUSION: 1. Advanced osteoarthritis of the left knee. No acute bony abnormality. Andrés Recinos MD Lower Extremity Ultrasound 02/21/18 Signed Impressions: Service Date/Time: February 21:23 - CONCLUSION: 1. Negative for deep venous thrombosis. There is a left popliteal fossa cyst measuring up to 5.6 x 4.2 x 1.[address]. Andrés Recinos MD CT Angiography 02/21/18 Signed Impressions: Service Date/Time: February 22:02 - CONCLUSION: 1. No filling defects to suggest pulmonary embolus. Scattered minimal atelectasis or scarring in the lungs. No effusions. Andrés Recinos MD Objective Remarks GENERAL: Alert, oriented 3, NAD. Morbidly obese. SKIN: Warm and dry. HEAD: Normocephalic. EYES: No scleral icterus. No injection or drainage. NECK: Supple, trachea midline. No JVD or lymphadenopathy. CARDIOVASCULAR: Regular rate and rhythm without murmurs, gallops, or rubs. RESPIRATORY: Breath sounds equal bilaterally. No accessory muscle use. GASTROINTESTINAL: Abdomen soft, non-tender, nondistended. MUSCULOSKELETAL: No cyanosis, or edema. BACK: Nontender without obvious deformity. No CVA tenderness. Procedures None A/P Problem List: (1) Acute ischemic stroke ICD Code: I63.9 - Cerebral infarction, unspecified (2) Diabetes mellitus ICD Code: E11.9 - Type 2 diabetes mellitus without complications (3) HTN (hypertension) ICD Code: I10 - Essential (primary) hypertension (4) Morbid obesity with BMI of 50.0-59.9, adult ICD Code: E66.01 - Morbid (severe) obesity due to excess calories; Z68.43 - Body mass index (BMI) 50-59.9 , adult Assessment and Plan Ms. Christohper is a pleasant 67-year-old female with a history of morbid obesity, diabetes mellitus, hypertension who presented to the emergency department on 02/21/2018 due to weakness and slurred speech. Imaging studies indicated right basal ganglia acute stroke. Neurology was consulted. Acute right-sided basal ganglia stroke -Appreciate neurology input. Patient is currently on aspirin 325 mg daily. -Continue telemetry to detect any possible irregular heart rhythm. -Start patient on Lipitor 40 mg nightly. Hypertension Diabetes mellitus -Patient's creatinine is slightly elevated to 1.12. We do not know her baseline. -We will avoid lisinopril for now. However in future she may benefit from GIOVANNA inhibitor or arm due to diabetes. -Start amlodipine 5 mg daily. Continue sliding scale insulin. Morbid obesity -likely contributing to diabetes, hypertension as well as a stroke. Lifestyle modifications recommended. Full code. Heparin subcutaneous. Jaki Stover DO February 22, 2018 2:08 pm
[2018-02-22] MEDS: ATORVASTATIN 40 MG TAB PO SCH (20:45)
--- NOTE | 2018-02-22 21:54 | EKG ---
Date Performed: 02/21/2018 Time Performed: 20:19:20 PTAGE: 67 years EKG: SINUS TACHYCARDIA MODERATE VOLTAGE CRITERIA FOR LVH, CONSIDER NORMAL VARIANT ABNORMAL RHYTH M ECG Since the previous tracing, no significant change noted NO PREVIOUS TRACING DOCTOR: Ping Serra Interpretating Date/Time 02/22/2018 16:58:05
--- NOTE | 2018-02-22 21:57 | EKG ---
Date Performed: 02/22/2018 Time Performed: 02:43:56 PTAGE: 67 years EKG: Sinus rhythm MODERATE VOLTAGE CRITERIA FOR LVH, CONSIDER NORMAL VARIANT NONSPECIFIC T-WAVE ABNORMALITY BORDERLINE ECG Since the PREVIOUS TRACING , no significant change noted PREVIOUS TRACIN02/21/2018 20.19 DOCTOR: Ping Serra Interpretating Date/Time 02/22/2018 16:58:18
[2018-02-22] MEDS ORDERED: ASPIRIN 325 MG TAB PO STA (22:17)
[2018-02-22] MEDS ORDERED: SODIUM CHLORID 0.9% 500 ML INJ 500 ML IV STA (22:18)
[2018-02-23] VITALS (15 sets, daily range): BP systolic 170–200; BP diastolic 78–93; PULSE 92–107; RESP 20–24; TEMP 98.3–99.4; O2SAT 93–99
[2018-02-23] MEDS: HEPARIN SODIUM - SQ 10,000 UNITS/ML VIAL SQ SCH ×3 (05:59→21:13)
[2018-02-23] MEDS: NYSTATIN 100,000 U/GM PWD 15 GM BTL TOPICAL SCH ×3 (05:59→21:14)
[2018-02-23] MEDS ORDERED: cloNIDine HCL 0.1 MG TAB PO PRN (07:15)
[2018-02-23] MEDS ORDERED: BISACODYL 10 MG SUPP RECTAL PRN (08:15)
[2018-02-23] MEDS ORDERED: NALOXONE HCL 0.4 MG/ML AMP IV PUSH PRN (08:15)
[2018-02-23] MEDS: NIFEdipine 60 MG SUSTAINED RELEASE TAB PO SCH (08:42)
[2018-02-23] MEDS: ASPIRIN 325 MG TAB PO SCH (08:42)
[2018-02-23] MEDS: INSULIN ASPART SUPPLEMENTAL SCALE SQ SCH ×4 (08:43→21:14)
[2018-02-23] MEDS: SODIUM CHLORIDE 0.9% FLUSH 10 ML FLUSH IV FLUSH SCH ×2 (09:00→19:39)
[2018-02-23] MEDS ORDERED: amLODIPine BESYLATE 5 MG TAB PO SCH (09:00)
[2018-02-23] MEDS: SODIUM CHLOR 0.9% 1000 ML INJ 1,000 ML IV SCH ×3 (09:05→21:14)
--- NOTE | 2018-02-23 09:17 | HHI.PR ---
Objective Vital Signs Date Time Temp Pulse Resp B/P (MAP) Pulse Ox O2 Delivery O2 Flow Rate FiO2 02/23/18 06:00 95 02/23/18 04:00 96 Nasal Cannula 3.00 02/23/18 04:00 97 02/23/18 04:00 98.8 97 20 197/91 (126) 96 02/23/18 02:00 98 02/23/18 00:00 98 Nasal Cannula 3.00 02/23/18 00:00 98.8 96 24 200/93 (128) 98 02/23/18 00:00 96 02/22/18 23:00 96 02/22/18 20:03 98.0 101 18 160/82 (108) 96 02/22/18 16:28 98.6 62 20 140/78 (98) 98 02/22/18 15:00 96 02/22/18 12:28 98.2 78 18 138/62 (87) 96 I/O 02/22/18 02/22/18 02/22/18 02/23/18 02/23/18 02/23/18 07:00 15:00 23:00 07:00 15:00 23:00 Intake Total 400 ml 500 ml Output Total 450 ml Balance 400 ml 50 ml Intake Oral 400 ml IV Total 500 ml Output Urine Total 450 ml # Voids 4 Result Diagram: 02/22/18 0240 02/22/18 0240 Objective Remarks vff left droop tongue midline left tricep 4/5 as are lweft finger ext and left ip ta nl speech clear mostly Assessment and Plan Assessment and Plan imp r watershed mca margaret cva left distal mca dz mra neck nl echo and holterpend b12 shots hx pe check hyper,screen keep bp up ivf on hob down today as has worsened yest Willem Ding MD February 23, 2018 09:17
[2018-02-23] MEDS: CYANOCOBALAMIN 1000 MCG/ML VIAL SQ SCH (10:53)
[2018-02-23] MEDS: ONDANSETRON HCL 4 MG/2 ML VIAL IVP PRN (10:53)
[2018-02-23] MEDS: ACETAMINOPHEN 325 MG TAB PO PRN ×2 (10:53→19:40)
--- NOTE | 2018-02-23 11:08 | HHI.PR ---
Subjective Remarks Follow-up for acute stroke. Patient was transferred to ICU due to worsening neurological symptoms. At the time of this interview, she is resting in bed, somewhat uncomfortable because she cannot move. No chest pain, SOB, fever, chills. Objective Vitals Vital Signs Date Time Temp Pulse Resp B/P (MAP) Pulse Ox O2 Delivery O2 Flow Rate FiO2 02/23/18 06:00 95 02/23/18 04:00 96 Nasal Cannula 3.00 02/23/18 04:00 97 02/23/18 04:00 98.8 97 20 197/91 (126) 96 02/23/18 02:00 98 02/23/18 00:00 98 Nasal Cannula 3.00 02/23/18 00:00 98.8 96 24 200/93 (128) 98 02/23/18 00:00 96 02/22/18 23:00 96 02/22/18 20:03 98.0 101 18 160/82 (108) 96 02/22/18 16:28 98.6 62 20 140/78 (98) 98 02/22/18 15:00 96 02/22/18 12:28 98.2 78 18 138/62 (87) 96 I/O 02/22/18 02/22/18 02/22/18 02/23/18 02/23/18 02/23/18 07:00 15:00 23:00 07:00 15:00 23:00 Intake Total 400 ml 500 ml Output Total 450 ml Balance 400 ml 50 ml Intake Oral 400 ml IV Total 500 ml Output Urine Total 450 ml # Voids 4 Result Diagram: 02/22/18 0240 02/22/18 0240 Imaging Last Impressions Neck Magnetic Resonance Angiography 02/22/18900 Signed Impressions: Service Date/Time: Thursday, February 22, 2018 10:06 - CONCLUSION: Negative MRA of the carotids for source of emboli. Aleksandr Clay MD FACR Brain MRI 02/22/18900 Signed Impressions: Service Date/Time: Thursday, February 22, 2018 10:06 - CONCLUSION: Acute infarct the high basal ganglia right side without enhancement or hemorrhage. 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 Aleksandr Clay MD FACR Carotid Artery Ultrasound 02/22/18 Signed Impressions: Service Date/Time: Thursday, February 22, 2018 08:21 - CONCLUSION: 1. Elevated velocities in the proximal common carotid artery which may reflect an ostial stenosis not imaged on this exam. 2. Mild bilateral carotid plaque with mild, less than 50%%, stenosis. Pro Tejeda MD Head CT 02/21/181954 Signed Impressions: Service Date/Time: February 21:54 - CONCLUSION: 1. Remote infarct right periventricular white matter with white matter ischemic changes. No acute findings. Andrés Recinos MD Chest X-Ray 02/21/181954 Signed Impressions: Service Date/Time: February 20:01 - CONCLUSION: 1. Minimal basilar atelectasis. Andrés Recinos MD Tibia/Fibula X-Ray 02/21/18 Signed Impressions: Service Date/Time: February 20:03 - CONCLUSION: 1. Advanced osteoarthritis of the left knee. No acute bony abnormality. Andrés Recinos MD Lower Extremity Ultrasound 02/21/18 Signed Impressions: Service Date/Time: February 21:23 - CONCLUSION: 1. Negative for deep venous thrombosis. There is a left popliteal fossa cyst measuring up to 5.6 x 4.2 x 1.[address] cm. Andrés Recinos MD CT Angiography 02/21/18 0000 Signed Impressions: Service Date/Time: February 22:02 - CONCLUSION: 1. No filling defects to suggest pulmonary embolus. Scattered minimal atelectasis or scarring in the lungs. No effusions. Andrés Recinos MD Objective Remarks GENERAL: Alert, oriented 3, NAD. Morbidly obese. SKIN: Warm and dry. HEAD: Normocephalic. EYES: No scleral icterus. No injection or drainage. NECK: Supple, trachea midline. No JVD or lymphadenopathy. CARDIOVASCULAR: Regular rate and rhythm without murmurs, gallops, or rubs. RESPIRATORY: Breath sounds equal bilaterally. No accessory muscle use. GASTROINTESTINAL: Abdomen soft, non-tender, nondistended. MUSCULOSKELETAL: No cyanosis, or edema. BACK: Nontender without obvious deformity. No CVA tenderness. Procedures None A/P Problem List: (1) Acute ischemic stroke ICD Code: I63.9 - Cerebral infarction, unspecified (2) Diabetes mellitus ICD Code: E11.9 - Type 2 diabetes mellitus without complications (3) HTN (hypertension) ICD Code: I10 - Essential (primary) hypertension (4) Morbid obesity with BMI of 50.0-59.9, adult ICD Code: E66.01 - Morbid (severe) obesity due to excess calories; Z68.43 - Body mass index (BMI) 50-59.9 , adult Assessment and Plan Ms. Christopher is a pleasant 67-year-old female with a history of morbid obesity, diabetes mellitus, hypertension who presented to the emergency department on 02/21/2018 due to weakness and slurred speech. Imaging studies indicated right basal ganglia acute stroke. Neurology was consulted. Acute right-sided basal ganglia stroke -Appreciate neurology input. Patient is currently on aspirin 325 mg daily. -Continue telemetry to detect any possible irregular heart rhythm. -Continue Lipitor 40 mg nightly. -Echo pending. Hypertension Diabetes mellitus -Patient's creatinine is slightly elevated to 1.12. We do not know her baseline. -We will avoid lisinopril for now. However in future she may benefit from GIOVANNA inhibitor or arm due to diabetes. -Permissive hypertension for now. We will use Nifedipine for BP when appropriate to use (likely 02/24/2018). -BG 167. Goal BG 140-180. Continue sliding scale insulin for now. Morbid obesity -likely contributing to diabetes, hypertension as well as a stroke. Lifestyle modifications recommended. Full code. Heparin subcutaneous. Jaki Stover DO February 23, 2018 11:08
[2018-02-23] MEDS: ATORVASTATIN 40 MG TAB PO SCH (19:40)
[2018-02-24] VITALS (12 sets, daily range): BP systolic 149–179; BP diastolic 70–81; PULSE 78–107; RESP 18–26; TEMP 97.9–98.9; O2SAT 93–98
[2018-02-24] MEDS: NYSTATIN 100,000 U/GM PWD 15 GM BTL TOPICAL SCH ×3 (06:17→22:00)
[2018-02-24] MEDS: HEPARIN SODIUM - SQ 10,000 UNITS/ML VIAL SQ SCH ×3 (06:17→23:10)
[2018-02-24] MEDS: SODIUM CHLOR 0.9% 1000 ML INJ 1,000 ML IV SCH (07:22)
[2018-02-24] MEDS: SODIUM CHLORIDE 0.9% FLUSH 10 ML FLUSH IV FLUSH SCH ×2 (08:20→23:14)
[2018-02-24] MEDS: CYANOCOBALAMIN 1000 MCG/ML VIAL SQ SCH (08:21)
[2018-02-24] MEDS: NIFEdipine 60 MG SUSTAINED RELEASE TAB PO SCH (08:21)
[2018-02-24] MEDS: ASPIRIN 325 MG TAB PO SCH (08:21)
[2018-02-24] MEDS: INSULIN ASPART SUPPLEMENTAL SCALE SQ SCH ×4 (08:25→23:22)
[2018-02-24] MEDS: ACETAMINOPHEN 325 MG TAB PO PRN ×3 (09:54→23:11)
--- NOTE | 2018-02-24 10:55 | HHI.PR ---
Subjective Remarks 67-year-old female who suffered a stroke of the basal ganglia but has shown good signs of recovery thus far. She is pleased in that she is well enough to leave the ICU. We spent some time discussing the importance of active participation in rehabilitation in order to gain a maximum amount of recovery from her stroke. Objective Vitals Vital Signs Date Time Temp Pulse Resp B/P (MAP) Pulse Ox O2 Delivery O2 Flow Rate FiO2 02/24/18 07:21 95 Nasal Cannula 3.00 02/24/18 06:00 101 02/24/18 04:00 98.6 96 20 157/74 (101) 93 02/24/18 04:00 96 02/24/18 04:00 93 Nasal Cannula 3.00 02/24/18 02:00 100 02/24/18 00:00 96 Nasal Cannula 3.00 02/24/18 00:00 98.7 101 23 179/81 (113) 96 02/24/18 00:00 101 02/23/18 22:00 95 02/23/18 20:40 19 02/23/18 20:00 107 02/23/18 20:00 95 Nasal Cannula 3.00 02/23/18 20:00 99.4 107 22 174/83 (113) 95 02/23/18 18:00 103 02/23/18 16:00 100 21 170/79 (109) 97 02/23/18 16:00 100 02/23/18 16:00 100 21 170/79 (109) 97 02/23/18 16:00 99 Nasal Cannula 3.00 02/23/18 15:00 97 02/23/18 14:00 94 02/23/18 12:00 98.3 02/23/18 12:00 94 02/23/18 12:00 99 Nasal Cannula 3.00 02/23/18 11:00 97 21 183/84 (117) 96 02/23/18 11:00 97 I/O 02/23/18 02/23/18 02/23/18 02/24/18 02/24/18 02/24/18 07:00 15:00 23:00 07:00 15:00 23:00 Intake Total 500 ml 92 ml 1980 ml 1080 ml 100 ml Output Total 450 ml 1200 ml 700 ml Balance 50 ml 92 ml 780 ml 380 ml 100 ml Intake Oral 970 ml 180 ml IV Total 500 ml 92 ml 1010 ml 900 ml 100 ml Output Urine Total 450 ml 1200 ml 700 ml Result Diagram: 02/22/18 0240 02/22/18 0240 Objective Remarks GENERAL: Obese, well-developed patient. SKIN: Warm and dry. HEAD: Normocephalic. EYES: No scleral icterus. No injection or drainage. NECK: Supple, trachea midline. No JVD or lymphadenopathy. CARDIOVASCULAR: Regular rate and rhythm without murmurs, gallops, or rubs. RESPIRATORY: Breath sounds equal bilaterally. No accessory muscle use. GASTROINTESTINAL: Abdomen soft, non-tender, nondistended. EXTREMITIES: No cyanosis, or edema. NEUROLOGICAL: Awake, alert, and oriented x 3. Left upper and lower extremity weakness, 3/5 strength in upper extremity Procedures None A/P Problem List: (1) Acute ischemic stroke ICD Code: I63.9 - Cerebral infarction, unspecified (2) Diabetes mellitus ICD Code: E11.9 - Type 2 diabetes mellitus without complications (3) HTN (hypertension) ICD Code: I10 - Essential (primary) hypertension (4) Morbid obesity with BMI of 50.0-59.9, adult ICD Code: E66.01 - Morbid (severe) obesity due to excess calories; Z68.43 - Body mass index (BMI) 50-59.9 , adult Assessment and Plan CVA Ischemic stroke affecting left MCA CHARISSE watershed She has regained a significant amount of function in her left side compared to when she came in, her speech has returned though it is slow Patient will be moved from ICU to [facility] today Continue supportive care, PT, OT, speech Appreciate neurology following Type 2 diabetes Hemoglobin A1c was 7.0 Continue sliding-scale coverage with Accu-Cheks Diabetic diet Hypertension She has been allowed permissive hypertension due to ischemic CVA We will begin to add gentle coverage in preparation for eventual discharge, SBP under 170 Follow on telemetry Morbid obesity Patient will be counseled on the effects of obesity on risk of stroke DVT prophylaxis Heparin Matt Ga MD February 24, 2018 10:55
--- NOTE | 2018-02-24 12:45 | HHI.PR ---
Subjective Remarks sr Objective Vital Signs Date Time Temp Pulse Resp B/P (MAP) Pulse Ox O2 Delivery O2 Flow Rate FiO2 02/24/18 10:58 16 02/24/18 08:00 100 Nasal Cannula 3.00 02/24/18 07:21 95 Nasal Cannula 3.00 02/24/18 06:00 101 02/24/18 04:00 98.6 96 20 157/74 (101) 93 02/24/18 04:00 96 02/24/18 04:00 93 Nasal Cannula 3.00 02/24/18 02:00 100 02/24/18 00:00 96 Nasal Cannula 3.00 02/24/18 00:00 98.7 101 23 179/81 (113) 96 02/24/18 00:00 101 02/23/18 22:00 95 02/23/18 20:00 107 02/23/18 20:00 95 Nasal Cannula 3.00 02/23/18 20:00 99.4 107 22 174/83 (113) 95 02/23/18 18:00 103 02/23/18 16:00 100 21 170/79 (109) 97 02/23/18 16:00 100 02/23/18 16:00 100 21 170/79 (109) 97 02/23/18 16:00 99 Nasal Cannula 3.00 02/23/18 15:00 97 02/23/18 14:00 94 I/O 02/23/18 02/23/18 02/23/18 02/24/18 02/24/18 02/24/18 07:00 15:00 23:00 07:00 15:00 23:00 Intake Total 500 ml 92 ml 1980 ml 1080 ml 100 ml Output Total 450 ml 1200 ml 700 ml Balance 50 ml 92 ml 780 ml 380 ml 100 ml Intake Oral 970 ml 180 ml IV Total 500 ml 92 ml 1010 ml 900 ml 100 ml Output Urine Total 450 ml 1200 ml 700 ml Result Diagram: 02/22/18 0240 02/22/18 0240 Objective Remarks vff left droop little worse tongue midline left tricep 4-/5 left finger ext 3+-4- and left ip 3/5 speech slurred Assessment and Plan Assessment and Plan imp r watershed mca margaret cva left distal mca dz mra neck nl echo and holterpend still b12 shots hx pe check hyper,screen keep bp up ivf on hob down today as has worsened again since yest add plavix recheck mri Willem Ding MD February 24, 2018 12:44
[2018-02-24 13:00] LABS: AUTOMATED NEUTROPHIL # 7.4 TH/MM3 (1.8-7.7); BASOPHIL # 0.1 TH/MM3 (0-0.2); BASOPHIL % 0.6 % (0.0-2.0); EOSINOPHIL # 0.2 TH/MM3 (0-0.4); HEMATOCRIT 41.8 % (35.0-46.0); HEMOGLOBIN 14.3 GM/DL (11.6-15.3); LYMPH % 14.1 % (9.0-44.0); LYMPHOCYTE # 1.4 TH/MM3 (1.0-4.8); MEAN CELL VOLUME 89.7 FL (80.0-100.0); MEAN CORPUSCULAR HEMOGLOBIN 30.6 PG (27.0-34.0); MEAN CORPUSCULAR HGB CONC 34.2 % (32.0-36.0); MEAN PLATELET VOLUME 8.8 FL (7.0-11.0); MONO % 7.5 % (0.0-8.0); MONOCYTE # 0.7 TH/MM3 (0-0.9); NEUT % 75.8 % (16.0-70.0); PLATELET COUNT 186 TH/MM3 (150-450); RED BLOOD COUNT 4.66 MIL/MM3 (4.00-5.30); RED CELL DISTRIBUTION WIDTH 14.2 % (11.6-17.2); WHITE BLOOD COUNT 9.7 TH/MM3 (4.0-11.0)
[2018-02-24 13:23] LABS: CALCIUM 8.6 MG/DL (8.5-10.1); CREATININE 0.78 MG/DL (0.50-1.00)
[2018-02-24] MEDS ORDERED: LORazepam 2 MG/ML VIAL IV PUSH ONE (14:15)
[2018-02-24] MEDS: CLOPIDOGREL 75 MG TAB PO SCH (14:45)
--- NOTE | 2018-02-24 15:24 | RADRPT ---
EXAM DATE/TIME: 02/24/2018 14:58 [facility] COMPARISON: MRI BRAIN W & W/O CONTRAST, February 22, 2018, 10:06. INDICATIONS : CVA. MEDICAL HISTORY : Hypertension. Diabetes mellitus type 2. SURGICAL HISTORY : Umbilical hernia repair. ENCOUNTER: Initial ACUITY: 3 day PAIN SCORE: 0/10 LOCATION: cranial TECHNIQUE: Multiplanar, multisequence MRI of the brain was performed without contrast. FINDINGS: DIFFUSION IMAGIN.8 x 1.5 cm ovoid area of restricted diffusion centered in the right basal ganglia/parietal perivent ricular white matter indicating acute infarct. Correlating signal on amount is seen on T2-weighted im ages. CEREBRUM: The ventricles are normal for age. No evidence of midline shift, mass lesion, or hemorrhage. No extr aaxial fluid collections are seen. The pituitary gland and suprasellar cistern are normal in configu ration. WHITE MATTER: Moderate bilateral symmetric small vessel white matter ischemic change. POSTERIOR FOSSA: The cerebellum and brainstem are intact. The 4th ventricle is midline. The cerebellopontine angle is unremarkable. The cerebellar tonsils are normal in position. EXTRACRANIAL: The visualized portions of the orbits and paranasal sinuses are unremarkable. CONCLUSION: No change in acute infarct in the right basal ganglia. Jax Bran MD on February 24, 2018 at 15:17 Board Certified Radiologist. This report was verified electronically.
[2018-02-24] MEDS: ATORVASTATIN 40 MG TAB PO SCH (23:10)
[2018-02-25] VITALS (10 sets, daily range): BP systolic 130–176; BP diastolic 68–86; PULSE 66–112; RESP 17–20; TEMP 97.8–99.2; O2SAT 93–98
[2018-02-25] MEDS: SODIUM CHLOR 0.9% 1000 ML INJ 1,000 ML IV SCH ×2 (00:35→11:29)
[2018-02-25] MEDS: NYSTATIN 100,000 U/GM PWD 15 GM BTL TOPICAL SCH ×3 (05:52→22:55)
[2018-02-25] MEDS: HEPARIN SODIUM - SQ 10,000 UNITS/ML VIAL SQ SCH (06:00)
[2018-02-25] MEDS: CLOPIDOGREL 75 MG TAB PO SCH (08:15)
[2018-02-25] MEDS: ASPIRIN 325 MG TAB PO SCH (08:15)
[2018-02-25] MEDS: CYANOCOBALAMIN 1000 MCG/ML VIAL SQ SCH (08:16)
[2018-02-25] MEDS: ACETAMINOPHEN 325 MG TAB PO PRN (08:16)
--- NOTE | 2018-02-25 08:22 | HHI.PR ---
Subjective Remarks sr Objective Vital Signs Date Time Temp Pulse Resp B/P (MAP) Pulse Ox O2 Delivery O2 Flow Rate FiO2 02/25/18 07:53 98.9 108 20 163/86 (111) 96 02/25/18 04:30 98.1 67 17 130/69 (89) 98 02/25/18 00:50 98.0 66 20 146/68 (94) 98 02/24/18 20:15 97.9 78 19 150/70 (96) 97 02/24/18 19:05 Nasal Cannula 3.00 02/24/18 18:00 107 02/24/18 17:56 16 02/24/18 16:00 98.6 97 26 149/71 (97) 98 02/24/18 16:00 97 02/24/18 16:00 98 Nasal Cannula 3.00 02/24/18 14:00 98 02/24/18 12:00 99 02/24/18 12:00 98 Nasal Cannula 3.00 02/24/18 12:00 98.8 99 18 151/73 (99) 96 02/24/18 10:00 100 I/O 02/24/18 02/24/18 02/24/18 02/25/18 02/25/18 02/25/18 07:00 15:00 23:00 07:00 15:00 23:00 Intake Total 1080 ml 100 ml 180 ml 475 ml Output Total 700 ml 650 ml Balance 380 ml 100 ml -470 ml 475 ml Intake Oral 180 ml 180 ml 475 ml IV Total 900 ml 100 ml Output Urine Total 700 ml 650 ml Stool Total 0 ml # Voids 3 4 # Bowel Movements 0 0 Result Diagram: 02/24/18 1226 02/24/18 1226 Objective Remarks vff left droop little worse tongue midline left tricep 2/5 left finger ext 0/5 and left ip 0/5 can wiggle left thumb and foot only speech slurred Assessment and Plan Assessment and Plan imp r watershed mca margaret cva left distal mca dz mra neck nl echo and holterpend still b12 shots hx pe check hyper,screen keep bp up ivf on hob down today as has worsened again since yest add plavix recheck mri 02/25/18 worse overnoc very weak on left now despite asa plavix sq hep ivf and hob down i reviewed mri this is a slowly inc deep mca penetrator change to ivhep Willem Ding MD February 25, 2018 08:22
[2018-02-25] MEDS: SODIUM CHLORIDE 0.9% FLUSH 10 ML FLUSH IV FLUSH SCH ×2 (08:24→21:00)
[2018-02-25] MEDS: NIFEdipine 60 MG SUSTAINED RELEASE TAB PO SCH (09:00)
[2018-02-25] MEDS ORDERED: methylPREDNISolone SOD SUCC 40 MG/1 ML VIAL IV PUSH ONE (09:00)
[2018-02-25] MEDS: INSULIN ASPART SUPPLEMENTAL SCALE SQ SCH ×4 (09:31→21:10)
--- NOTE | 2018-02-25 11:45 | HM ---
Date Performed: 02/22/2018 Time Performed: 15:40:00 HOOKUP DATE: 02/22/18 03:40:00 PM Fri ANALYSIS START TIME: 02/22/2018 3:45:00 PM ANALYSIS END TIME: 02/23/2018 2:23:46 PM PATIENT AGE: 67 PATIENT HEIGHT PATIENT WEIGHT DRUG LIST PATIENT DIAGNOSIS: CVA/TIA TEST NARRATIVE: The patient's average heart rate was 95 BPM. No episodes of tachycardia wer e noted. No episodes of bradycardia were noted. No pauses exceeding 2.0 seconds were noted. 12 ventricular ectopics, which represented < 1% of the total beat count, were noted. The highest sia tricular ectopic frequency occurred from 10:00 PM to 11:00 PM Fri. During this time 2 VE(s) occurred . Ventricular ectopics were observed as 12 isolated beat(s) only. No couplets or runs were noted. 5 supraventricular ectopics, which represented < 1% of the total beat count, were noted. The high est supraventricular ectopic frequency occurred from 02:00 AM to 03:00 AM Sat. During this time 5 SV E(s) occurred. No episodes of ST depression (defined as -1.0 mm or more) were noted in channel 1. No episodes of ST depression (defined as -1.0 mm or more) were noted in channel 2. No episodes of ST depression (defined as -1.0 mm or more) were noted in channel 3. TEST INTERPRETATION: The Holter monitor demonstrates Sinus rhythm with periods of sinus tachycardia to 119. Rare PVCs and PACs were noted. One atrial couplet was note d and no other arrhythmias recorded. Signed by : Willem Mcdaniel
[2018-02-25 12:19] LABS: PROTHROMBIN TIME - PATIENT 10.3 SEC (9.8-11.6)
[2018-02-25 12:20] LABS: HEMATOCRIT 40.2 % (35.0-46.0); HEMOGLOBIN 13.9 GM/DL (11.6-15.3); MEAN CELL VOLUME 88.9 FL (80.0-100.0); MEAN CORPUSCULAR HEMOGLOBIN 30.7 PG (27.0-34.0); MEAN CORPUSCULAR HGB CONC 34.6 % (32.0-36.0); PLATELET COUNT 196 TH/MM3 (150-450); RED BLOOD COUNT 4.53 MIL/MM3 (4.00-5.30); RED CELL DISTRIBUTION WIDTH 14.6 % (11.6-17.2); WHITE BLOOD COUNT 9.5 TH/MM3 (4.0-11.0)
[2018-02-25] MEDS: ALPRAZolam 0.25 MG TAB PO PRN (12:46)
--- NOTE | 2018-02-25 13:12 | HHI.PR ---
Subjective Remarks Patient is in a discouragement today. She understands that she has had some increased weakness and rather than moving forward she feels things are moving backwards. She has been placed on a heparin drip for her safety and to prevent evolution of her stroke. Her chief complaint at this time is low back pain Objective Vitals Vital Signs Date Time Temp Pulse Resp B/P (MAP) Pulse Ox O2 Delivery O2 Flow Rate FiO2 02/25/18 11:34 99.1 104 20 148/79 (102) 96 02/25/18 09:53 105 02/25/18 08:40 96 Nasal Cannula 3.00 02/25/18 07:53 98.9 108 20 163/86 (111) 96 02/25/18 04:30 98.1 67 17 130/69 (89) 98 02/25/18 00:50 98.0 66 20 146/68 (94) 98 02/24/18 20:15 97.9 78 19 150/70 (96) 97 02/24/18 19:05 Nasal Cannula 3.00 02/24/18 18:00 107 02/24/18 17:56 16 02/24/18 16:00 98.6 97 26 149/71 (97) 98 02/24/18 16:00 97 02/24/18 16:00 98 Nasal Cannula 3.00 02/24/18 14:00 98 I/O 02/24/18 02/24/18 02/24/18 02/25/18 02/25/18 02/25/18 07:00 15:00 23:00 07:00 15:00 23:00 Intake Total 1080 ml 100 ml 180 ml 475 ml Output Total 700 ml 650 ml Balance 380 ml 100 ml -470 ml 475 ml Intake Oral 180 ml 180 ml 475 ml IV Total 900 ml 100 ml Output Urine Total 700 ml 650 ml Stool Total 0 ml # Voids 3 4 # Bowel Movements 0 0 Result Diagram: 02/25/18 1132 02/24/18 1226 Objective Remarks GENERAL: Obese, well-developed patient. SKIN: Warm and dry. HEAD: Normocephalic. EYES: No scleral icterus. No injection or drainage. NECK: Supple, trachea midline. No JVD or lymphadenopathy. CARDIOVASCULAR: Regular rate and rhythm without murmurs, gallops, or rubs. RESPIRATORY: Breath sounds equal bilaterally. No accessory muscle use. GASTROINTESTINAL: Abdomen soft, non-tender, nondistended. EXTREMITIES: No cyanosis, or edema. NEUROLOGICAL: Awake, alert, and oriented x 3. Left upper and lower extremity weakness, 3/5 strength in upper extremity Procedures None A/P Problem List: (1) Acute ischemic stroke ICD Code: I63.9 - Cerebral infarction, unspecified (2) Diabetes mellitus ICD Code: E11.9 - Type 2 diabetes mellitus without complications (3) HTN (hypertension) ICD Code: I10 - Essential (primary) hypertension (4) Morbid obesity with BMI of 50.0-59.9, adult ICD Code: E66.01 - Morbid (severe) obesity due to excess calories; Z68.43 - Body mass index (BMI) 50-59.9 , adult Assessment and Plan CVA Ischemic stroke affecting left MCA CHARISSE watershed Neurology evaluated and patient has had some increased weakness on her left side She has been placed on a heparin drip to prevent evolution of stroke Continue supportive care, PT, OT, speech Appreciate neurology following Low back pain Patient has a history of low back pain which has been aggravated by her lying on her back for 3 days At her baseline she walks with 2 canes due to back pain and bad knees There is a limit of medication options due to ruling out evolution of stroke I am giving her Tylenol and a single dose of Solu-Medrol to address arthritis Type 2 diabetes Hemoglobin A1c was 7.0 Continue sliding-scale coverage with Accu-Cheks Diabetic diet Hypertension She has been allowed permissive hypertension due to ischemic CVA Follow on telemetry Morbid obesity Patient will be counseled on the effects of obesity on risk of stroke DVT prophylaxis Heparin Matt Ga MD February 25, 2018 13:12
[2018-02-25] MEDS: HEPARIN-D5W 25,000 U/250 ML 250 ML IV PRN (19:07)
--- NOTE | 2018-02-25 19:26 | ECHRPT ---
Indication: CVA/TIA CONCLUSIONS The left ventricular systolic function is normal with an estimated ejection fraction in the range of 60-65%. Normal left ventricular size. Wall thickness is normal. No regional wall motion abnormalities are present. BP: 163 / 86 HR: 108 Rhythm: Sinus MEASUREMENTS (Male / Female) Normal Values Technical Quality:Fair 2D ECHO LV Diastolic Diameter PLAX 4.0 cm 4.2 - 5.9 / 3.9 - 5.3 cm LV Systolic Diameter PLAX 2.5 cm IVS Diastolic Thickness 1.1 cm 0.6 - 1.0 / 0.6 - 0.9 cm LVPW Diastolic Thickness 1.1 cm 0.6 - 1.0 / 0.6 - 0.9 cm LV Relative Wall Thickness 0.6 RV Internal Dim ED PLAX 2.9 cm LVOT Diameter 1.8 cm LA Systolic Diameter LX 4.1 cm 3.0 - 4.0 / 2.7 - 3.8 cm LV Ejection Fraction MOD 4C 66.7 % LV Cardiac Index MOD 4C 3021.1 cm/minm LV Ejection Fraction 4C AL 67.9 % LV Cardiac Index 4C AL 3225.9 cm/minm M-MODE Aortic Root Diameter MM 2.6 cm LA Systolic Diameter MM 4.3 cm LA Ao Ratio MM 1.7 AV Cusp Separation MM 2.0 cm DOPPLER AV Peak Velocity 191.5 cm/s AV Peak Gradient 14.7 mmHg LVOT Peak Velocity 120.0 cm/s LVOT Peak Gradient 5.8 mmHg AV Area Cont Eq pk 1.6 cm LV E' Lateral Velocity 8.4 cm/s LV E' Septal Velocity 7.4 cm/s PV Peak Velocity 157.0 cm/s PV Peak Gradient 9.9 mmHg FINDINGS LEFT VENTRICLE The left ventricular systolic function is normal with an estimated ejection fraction in the range of 60-65%. Normal left ventricular size. Wall thickness is normal. No regional wall motion abnormalities are present. RIGHT VENTRICLE Normal right ventricular size and systolic function. LEFT ATRIUM The left atrial size is normal. RIGHT ATRIUM The right atrial size is normal. ATRIAL SEPTUM Normal atrial septal thickness without atrial level shunting by limited color doppler interrogation. AORTA The aortic root and proximal ascending aorta are normal in size on limited imaging. MITRAL VALVE Structurally normal mitral valve. No mitral valve stenosis or regurgitation. AORTIC VALVE Trileaflet aortic valve. No aortic valve stenosis or regurgitation. TRICUSPID VALVE Structurally normal tricuspid valve. No tricuspid valve stenosis or regurgitation. PULMONARY VALVE The pulmonary valve is not well visualized. VESSELS The inferior vena cava is normal in size. PERICARDIUM No pericardial effusion. Miranda Dyson MD, FACC (Electronically Signed) Final Date:25 Feb 2018 19:25
[2018-02-25] MEDS: ATORVASTATIN 40 MG TAB PO SCH (21:08)
[2018-02-26] VITALS (9 sets, daily range): BP systolic 151–187; BP diastolic 69–93; PULSE 82–95; RESP 16–18; TEMP 97.7–98.1; O2SAT 95–98
[2018-02-26] MEDS: HEPARIN-D5W 25,000 U/250 ML 250 ML IV PRN ×2 (02:15→13:04)
[2018-02-26] MEDS: SODIUM CHLOR 0.9% 1000 ML INJ 1,000 ML IV SCH ×4 (02:24→23:59)
[2018-02-26] MEDS: NYSTATIN 100,000 U/GM PWD 15 GM BTL TOPICAL SCH ×3 (05:29→21:26)
--- NOTE | 2018-02-26 06:51 | HHI.PR ---
Subjective Remarks in no acute distress. still with left upper extremity weakness. no new complaints. Objective Vitals Vital Signs Date Time Temp Pulse Resp B/P (MAP) Pulse Ox O2 Delivery O2 Flow Rate FiO2 02/26/18 04:00 97.8 95 18 151/69 (96) 95 02/26/18 00:00 88 02/26/18 00:00 97.8 91 18 157/80 (105) 96 02/25/18 21:10 Nasal Cannula 2.00 02/25/18 21:07 Nasal Cannula 2.00 02/25/18 20:00 97.8 110 18 159/82 (107) 95 02/25/18 20:00 109 02/25/18 16:48 110 02/25/18 15:39 99.2 112 20 176/77 (110) 93 02/25/18 14:54 107 02/25/18 11:34 99.1 104 20 148/79 (102) 96 02/25/18 09:53 105 02/25/18 08:40 96 Nasal Cannula 3.00 02/25/18 07:53 98.9 108 20 163/86 (111) 96 02/25/18 07:45 Nasal Cannula 2.00 I/O 02/25/18 02/25/18 02/25/18 02/26/18 02/26/18 02/26/18 07:00 15:00 23:00 07:00 15:00 23:00 Intake Total 475 ml 950 ml 480 ml Balance 475 ml 950 ml 480 ml Intake Oral 475 ml 480 ml IV Total 950 ml # Voids 4 3 2 # Bowel Movements 0 0 Result Diagram: 02/25/18 1132 02/24/18 1226 Imaging Last Impressions Brain MRI 02/24/18 0000 Signed Impressions: Service Date/Time: Saturday, February 24, 2018 14:58 - CONCLUSION: No change in acute infarct in the right basal ganglia. Jax Bran MD Neck Magnetic Resonance Angiography 02/22/18 0901 Signed Impressions: Service Date/Time: Thursday, February 22, 2018 10:06 - CONCLUSION: Negative MRA of the carotids for source of emboli. 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 Aleksandr Clay MD FACR Carotid Artery Ultrasound 02/22/18 Signed Impressions: Service Date/Time: Thursday, February 22, 2018 08:21 - CONCLUSION: 1. Elevated velocities in the proximal common carotid artery which may reflect an ostial stenosis not imaged on this exam. 2. Mild bilateral carotid plaque with mild, less than 50%%, stenosis. Pro Tejeda MD Head CT 02/21/181954 Signed Impressions: Service Date/Time: February 21:54 - CONCLUSION: 1. Remote infarct right periventricular white matter with white matter ischemic changes. No acute findings. Andrés Recinos MD Chest X-Ray 02/21/181954 Signed Impressions: Service Date/Time: February 20:01 - CONCLUSION: 1. Minimal basilar atelectasis. Andrés Recinos MD Tibia/Fibula X-Ray 02/21/18 Signed Impressions: Service Date/Time: February 20:03 - CONCLUSION: 1. Advanced osteoarthritis of the left knee. No acute bony abnormality. Andrés Recinos MD Lower Extremity Ultrasound 02/21/18 Signed Impressions: Service Date/Time: February 21:23 - CONCLUSION: 1. Negative for deep venous thrombosis. There is a left popliteal fossa cyst measuring up to 5.6 x 4.2 x 1.6 cm. Andrés Recinos MD CT Angiography 02/21/18 Signed Impressions: Service Date/Time: February 22:02 - CONCLUSION: 1. No filling defects to suggest pulmonary embolus. Scattered minimal atelectasis or scarring in the lungs. No effusions. Andrés Recinos MD Objective Remarks GENERAL: This is a well-nourished, well-developed patient, in no apparent distress. CARDIOVASCULAR: Regular rate and regular rhythm without murmurs, gallops, or rubs. RESPIRATORY: Clear to auscultation. Breath sounds equal bilaterally. No wheezes , rales, or rhonchi. GASTROINTESTINAL: Abdomen soft, non-tender, nondistended. Normal, active bowel sounds MUSCULOSKELETAL:left upper extremity weakness NEURO: Alert & Oriented x4 to person, place, time, situation. Procedures None Medications and IVs Inpatient Medications Acetaminophen (Tylenol) 650 mg Q4H PRN PO pain 1-10; Start 02/25/18 at 08:45 Alprazolam (Xanax) 0.25 mg Q6H PRN PO anxiety Last administered on 02/25/18at 12: 46; Start 02/24/18 at 10:30 Amlodipine Besylate (Norvasc) 5 mg DAILY PO ; Start 02/23/18 at 09:00; Stop at 09:00; Status DC Aspirin (Aspirin Chew) 324 mg ONCE ONCE CHEW Last administered on 02/22/18at 03: 15; Start 02/21/18 at 23:45; Stop 02/21/18 at 23:46; Status DC Aspirin (Aspirin) 325 mg STAT STAT PO Last administered on 02/22/18at 22:23; Start 02/22/18 at 22:17; Stop 02/22/18 at 22:18; Status DC Atorvastatin Calcium (Lipitor) 40 mg HS PO Last administered on 02/25/18at 21:08 ; Start 02/22/18 at 21:00 Bisacodyl (Dulcolax Supp) 10 mg DAILY PRN RECTAL SEVERE CONSITIPATION; Start at 08:15 Clonidine (Catapres) 0.1 mg Q6H PRN PO SBP> OR = 180, DBP> OR = 100; Start 02/23 at 07:15; Stop 02/25/18 at 08:21; Status DC Clopidogrel Bisulfate (Plavix) 75 mg DAILY PO Last administered on 02/24/18at 14: 45; Start 02/24/18 at 12:45; Stop 02/25/18 at 08:27; Status DC Cyanocobalamin (Vitamin B12 Inj) 1,000 mcg DAILY SQ Last administered on at 08:16; Start 02/23/18 at 09:15; Stop 02/26/18 at 09:14 Dextrose (D50w (Vial) Inj) 50 ml UNSCH PRN IV PUSH HYPOGLYCEMIA-SEE COMMENTS; Start 02/21/18 at 23:15 Glucagon (Glucagon Inj) 1 mg UNSCH PRN OTHER HYPOGLYCEMIA-SEE COMMENTS; Start 02/21/18 at 23:15 Heparin Sodium (Porcine) (Heparin Inj) 5,000 units Q8HR SQ Last administered on 02/25/18 06:00; Start 02/22/18 at 06:00; Stop 02/25/18 at 08:21; Status DC Heparin Sodium/ Dextrose 250 ml @ 12 mls/hr TITRATE PRN IV Coagulation Management Last administered on 02/26/18 02:15; Start 02/25/18 at 18:00 Insulin Aspart (NovoLOG SUPPLEMENTAL SCALE) 1 ACHS SQ Last administered on at 21:10; Start 02/22/18 at 08:00 Lactulose (Lactulose Liq) 30 ml DAILY PRN PO SEVERE CONSITIPATION; Start at 23:15 Lorazepam (Ativan Inj) 1 mg ONCE ONCE IV PUSH Last administered on 02/24/18 14 :44; Start 02/24/18 at 14:15; Stop 02/24/18 at 14:16; Status DC Magnesium Hydroxide (Milk Of Magnesia Liq) 30 ml Q12H PRN PO Mild constipation ; Start 02/23/18 at 08:15 Magnesium Sulfate/ Dextrose 100 ml @ 100 mls/hr ONCE ONCE IV Last administered on 02/21/18at 23:37; Start 02/21/18 at 23:15; Stop 02/22/18 at 00:14; Status DC Methylprednisolone Sodium Succinate (SoluMEDROL INJ) 40 mg ONCE ONCE IV PUSH Last administered on 02/25/18 11:29; Start 02/25/18 at 09:00; Stop 02/25/18 at 09: 01; Status DC Naloxone HCl (Narcan Inj) 0.4 mg UNSCH PRN IV PUSH SEE LABEL COMMENTS; Start at 08:15 Nifedipine (Procardia Xl) 60 mg DAILY PO Last administered on 02/24/18 08:21; Start 02/23/18 at 09:00 Nystatin (Mycostatin Powder) 1 applic Q8HR TOPICAL Last administered on 05:29; Start 02/22/18 at 14:00 Ondansetron HCl (Zofran Inj) 4 mg Q6H PRN IVP NAUSEA OR VOMITING Last administered on 02/23/18 10:53; Start 02/21/18 at 23:15 Sennosides (Senokot) 17.2 mg Q12H PRN PO Moderate constipation; Start 02/23/18 at 08:15 Sodium Chloride 500 ml @ 999 mls/hr BOLUS STAT IV Last administered on at 21:53; Start 02/22/18 at 22:18; Stop 02/22/18 at 22:48; Status DC Sodium Chloride (NS Flush) 2 ml BID IV FLUSH Last administered on 02/24/18at 23: 14; Start 02/22/18 at 09:00 A/P Problem List: (1) Acute ischemic stroke ICD Code: I63.9 - Cerebral infarction, unspecified (2) Diabetes mellitus ICD Code: E11.9 - Type 2 diabetes mellitus without complications (3) HTN (hypertension) ICD Code: I10 - Essential (primary) hypertension (4) Morbid obesity with BMI of 50.0-59.9, adult ICD Code: E66.01 - Morbid (severe) obesity due to excess calories; Z68.43 - Body mass index (BMI) 50-59.9 , adult Assessment and Plan A/P CVA Ischemic stroke affecting left MCA CHARISSE watershed Neurology evaluated and patient has had some increased weakness on her left side She has been placed on a heparin drip to prevent evolution of stroke continue statin Continue supportive care, PT, OT, speech Appreciate neurology following Low back pain Patient has a history of low back pain which has been aggravated by her lying on her back for 3 days At her baseline she walks with 2 canes due to back pain and bad knees There is a limit of medication options due to ruling out evolution of stroke Type 2 diabetes Hemoglobin A1c was 7.0 Continue sliding-scale coverage with Accu-Cheks Diabetic diet Hypertension continue Nifedipine will monitor and adjust the regimen as needed. Morbid obesity Patient will be counseled on the effects of obesity on risk of stroke DVT prophylaxis Heparin Discharge Planning dc planning to rehab when cleared by neurology. Miguel Kruse MD February 26, 2018 06:51
--- NOTE | 2018-02-26 07:59 | HHI.PR ---
Subjective Remarks sr Objective Vital Signs Date Time Temp Pulse Resp B/P (MAP) Pulse Ox O2 Delivery O2 Flow Rate FiO2 02/26/18 04:00 97.8 95 18 151/69 (96) 95 02/26/18 00:00 88 02/26/18 00:00 97.8 91 18 157/80 (105) 96 02/25/18 21:10 Nasal Cannula 2.00 02/25/18 21:07 Nasal Cannula 2.00 02/25/18 20:00 97.8 110 18 159/82 (107) 95 02/25/18 20:00 109 02/25/18 16:48 110 02/25/18 15:39 99.2 112 20 176/77 (110) 93 02/25/18 14:54 107 02/25/18 11:34 99.1 104 20 148/79 (102) 96 02/25/18 09:53 105 02/25/18 08:40 96 Nasal Cannula 3.00 I/O 02/25/18 02/25/18 02/25/18 02/26/18 02/26/18 02/26/18 07:00 15:00 23:00 07:00 15:00 23:00 Intake Total 475 ml 950 ml 480 ml Balance 475 ml 950 ml 480 ml Intake Oral 475 ml 480 ml IV Total 950 ml # Voids 4 3 2 # Bowel Movements 0 0 Result Diagram: 02/25/18 1132 02/24/18 1226 Objective Remarks vff left droop little worse tongue midline left tricep 3+/5 left finger ext 0/5 and left ip 3-/5 can wiggle left thumb and index and foot +speech slurred Assessment and Plan Assessment and Plan imp r watershed mca margaret cva left distal mca dz mra neck nl echo and holterpend still b12 shots hx pe check hyper,screen keep bp up ivf on hob down today as has worsened again since yest add plavix recheck mri 02/25/18 worse overnoc very weak on left now despite asa plavix sq hep ivf and hob down i reviewed mri this is a slowly inc deep mca penetrator change to ivhep 02/26/18 doing better this am left side a litle stronger if she maintains this today will will start to get her oob tomorrow iv hep on Willem Ding MD February 26, 2018 07:59
[2018-02-26] MEDS: NIFEdipine 60 MG SUSTAINED RELEASE TAB PO SCH (09:00)
[2018-02-26] MEDS: SODIUM CHLORIDE 0.9% FLUSH 10 ML FLUSH IV FLUSH SCH ×2 (09:00→21:00)
[2018-02-26] MEDS: INSULIN ASPART SUPPLEMENTAL SCALE SQ SCH ×4 (09:22→21:25)
[2018-02-26] MEDS: MAGNESIUM HYDROXIDE SUSP 30 ML CUP PO PRN (09:23)
[2018-02-26] MEDS: SENNOSIDES 8.6 MG TAB PO PRN (09:23)
[2018-02-26] MEDS: CYANOCOBALAMIN 1000 MCG/ML VIAL SQ SCH (09:23)
[2018-02-26] MEDS: ALPRAZolam 0.25 MG TAB PO PRN ×2 (11:26→21:02)
[2018-02-26 15:25] LABS: CARDIOLIPIN IGG AB <9.4 GPL; CARDIOLIPIN IGM AB <9.4 MPL
[2018-02-26] MEDS: ACETAMINOPHEN 325 MG TAB PO PRN (21:02)
[2018-02-26] MEDS: ATORVASTATIN 40 MG TAB PO SCH (21:02)
[2018-02-26 23:26] LABS: PROTEIN C ACTIVITY 125 % (70 - 150); PROTEIN S ACTIVITY 123 % (65 - 160)
[2018-02-27] VITALS (11 sets, daily range): BP systolic 137–193; BP diastolic 67–88; PULSE 63–118; RESP 16–18; TEMP 97.7–98.7; O2SAT 93–97
[2018-02-27] MEDS: HEPARIN-D5W 25,000 U/250 ML 250 ML IV PRN ×2 (03:47→16:59)
[2018-02-27] MEDS: ALPRAZolam 0.25 MG TAB PO PRN (05:41)
[2018-02-27] MEDS: NYSTATIN 100,000 U/GM PWD 15 GM BTL TOPICAL SCH ×3 (05:43→22:01)
--- NOTE | 2018-02-27 06:53 | HHI.PR ---
Subjective Remarks in no acute distress. still with left upper extremity weakness. BP trend noted. Objective Vitals Vital Signs Date Time Temp Pulse Resp B/P (MAP) Pulse Ox O2 Delivery O2 Flow Rate FiO2 02/27/18 05:00 97.7 93 18 180/85 (116) 97 02/27/18 02:17 91 02/27/18 01:23 96 Nasal Cannula 2.00 02/27/18 00:01 97.8 94 18 193/88 (123) 95 02/26/18 20:00 98.0 93 18 177/79 (111) 95 02/26/18 17:15 96 Nasal Cannula 2.00 02/26/18 16:10 82 02/26/18 16:00 98.1 88 16 171/80 (110) 98 02/26/18 12:00 97.9 86 16 175/88 (117) 96 02/26/18 12:00 88 02/26/18 08:15 92 02/26/18 08:00 97.7 89 16 187/93 (124) 95 02/26/18 07:40 Nasal Cannula 2.00 I/O 02/26/18 02/26/18 02/26/18 02/27/18 02/27/18 02/27/18 07:00 15:00 23:00 07:00 15:00 23:00 Intake Total 1469 ml 678.7 ml Balance 1469 ml 678.7 ml IV Total 1469 ml 678.7 ml # Voids 2 1 1 2 Result Diagram: 02/25/18 1132 02/24/18 1226 Imaging Last Impressions Brain MRI 02/24/18 0000 Signed Impressions: Service Date/Time: Saturday, February 24, 2018 14:58 - CONCLUSION: No change in acute infarct in the right basal ganglia. Jax Bran MD Neck Magnetic Resonance Angiography 02/22/18 0901 Signed Impressions: Service Date/Time: Thursday, February 22, 2018 10:06 - CONCLUSION: Negative MRA of the carotids for source of emboli. 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 Aleksandr Clay MD FACR Carotid Artery Ultrasound 02/22/18 0000 Signed Impressions: Service Date/Time: Thursday, February 22, 2018 08:21 - CONCLUSION: 1. Elevated velocities in the proximal common carotid artery which may reflect an ostial stenosis not imaged on this exam. 2. Mild bilateral carotid plaque with mild, less than 50%%, stenosis. Pro Tejeda MD Head CT 02/21/181954 Signed Impressions: Service Date/Time: February 21:54 - CONCLUSION: 1. Remote infarct right periventricular white matter with white matter ischemic changes. No acute findings. Andrés Recinos MD Chest X-Ray 02/21/181954 Signed Impressions: Service Date/Time: February 20:01 - CONCLUSION: 1. Minimal basilar atelectasis. Andrés Recinos MD Tibia/Fibula X-Ray 02/21/18 Signed Impressions: Service Date/Time: February 20:03 - CONCLUSION: 1. Advanced osteoarthritis of the left knee. No acute bony abnormality. Andrés Recinos MD Lower Extremity Ultrasound 02/21/18 Signed Impressions: Service Date/Time: February 21:23 - CONCLUSION: 1. Negative for deep venous thrombosis. There is a left popliteal fossa cyst measuring up to 5.6 x 4.2 x 1.6 cm. Andrés Recinos MD CT Angiography 02/21/18 0000 Signed Impressions: Service Date/Time: February 22:02 - CONCLUSION: 1. No filling defects to suggest pulmonary embolus. Scattered minimal atelectasis or scarring in the lungs. No effusions. Andrés Recinos MD Objective Remarks GENERAL: This is a well-nourished, well-developed patient, in no apparent distress. CARDIOVASCULAR: Regular rate and regular rhythm without murmurs, gallops, or rubs. RESPIRATORY: Clear to auscultation. Breath sounds equal bilaterally. No wheezes , rales, or rhonchi. GASTROINTESTINAL: Abdomen soft, non-tender, nondistended. Normal, active bowel sounds MUSCULOSKELETAL:left upper extremity weakness NEURO: Alert & Oriented x4 to person, place, time, situation. Procedures None Medications and IVs Inpatient Medications Acetaminophen (Tylenol) 650 mg Q4H PRN PO pain 1-10 Last administered on at 21:02; Start 02/25/18 at 08:45 Alprazolam (Xanax) 0.25 mg Q6H PRN PO anxiety Last administered on 02/27/18at 05: 41; Start 02/24/18 at 10:30 Amlodipine Besylate (Norvasc) 5 mg DAILY PO ; Start 02/23/18 at 09:00; Stop at 09:00; Status DC Aspirin (Aspirin Chew) 324 mg ONCE ONCE CHEW Last administered on 02/22/18at 03: 15; Start 02/21/18 at 23:45; Stop 02/21/18 at 23:46; Status DC Aspirin (Aspirin) 325 mg STAT STAT PO Last administered on 02/22/18at 22:23; Start 02/22/18 at 22:17; Stop 02/22/18 at 22:18; Status DC Atorvastatin Calcium (Lipitor) 40 mg HS PO Last administered on 02/26/18at 21:02 ; Start 02/22/18 at 21:00 Bisacodyl (Dulcolax Supp) 10 mg DAILY PRN RECTAL SEVERE CONSITIPATION; Start at 08:15 Clonidine (Catapres) 0.1 mg Q6H PRN PO SBP> OR = 180, DBP> OR = 100; Start 02/23 at 07:15; Stop 02/25/18 at 08:21; Status DC Clopidogrel Bisulfate (Plavix) 75 mg DAILY PO Last administered on 02/24/18at 14: 45; Start 02/24/18 at 12:45; Stop 02/25/18 at 08:27; Status DC Cyanocobalamin (Vitamin B12 Inj) 1,000 mcg DAILY SQ Last administered on at 09:23; Start 02/23/18 at 09:15; Stop 02/26/18 at 09:14; Status DC Dextrose (D50w (Vial) Inj) 50 ml UNSCH PRN IV PUSH HYPOGLYCEMIA-SEE COMMENTS; Start 02/21/18 at 23:15 Glucagon (Glucagon Inj) 1 mg UNSCH PRN OTHER HYPOGLYCEMIA-SEE COMMENTS; Start 02/21/18 at 23:15 Heparin Sodium (Porcine) (Heparin Inj) 5,000 units Q8HR SQ Last administered on 02/25/18 06:00; Start 02/22/18 at 06:00; Stop 02/25/18 at 08:21; Status DC Heparin Sodium/ Dextrose 250 ml @ 12 mls/hr TITRATE PRN IV Coagulation Management Last administered on 02/27/18at 03:47; Start 02/25/18 at 18:00 Insulin Aspart (NovoLOG SUPPLEMENTAL SCALE) 1 ACHS SQ Last administered on at 21:25; Start 02/22/18 at 08:00 Lactulose (Lactulose Liq) 30 ml DAILY PRN PO SEVERE CONSITIPATION; Start at 23:15 Lorazepam (Ativan Inj) 1 mg ONCE ONCE IV PUSH Last administered on 02/24/18 14 :44; Start 02/24/18 at 14:15; Stop 02/24/18 at 14:16; Status DC Magnesium Hydroxide (Milk Of Magnesia Liq) 30 ml Q12H PRN PO Mild constipation ; Start 02/23/18 at 08:15 Magnesium Sulfate/ Dextrose 100 ml @ 100 mls/hr ONCE ONCE IV Last administered on 02/21/18 23:37; Start 02/21/18 at 23:15; Stop 02/22/18 at 00:14; Status DC Methylprednisolone Sodium Succinate (SoluMEDROL INJ) 40 mg ONCE ONCE IV PUSH Last administered on 02/25/18at 11:29; Start 02/25/18 at 09:00; Stop 02/25/18 at 09: 01; Status DC Naloxone HCl (Narcan Inj) 0.4 mg UNSCH PRN IV PUSH SEE LABEL COMMENTS; Start at 08:15 Nifedipine (Procardia Xl) 60 mg DAILY PO Last administered on 02/24/18at 08:21; Start 02/23/18 at 09:00 Nystatin (Mycostatin Powder) 1 applic Q8HR TOPICAL Last administered on at 05:43; Start 02/22/18 at 14:00 Ondansetron HCl (Zofran Inj) 4 mg Q6H PRN IVP NAUSEA OR VOMITING Last administered on 02/23/18at 10:53; Start 02/21/18 at 23:15 Sennosides (Senokot) 17.2 mg Q12H PRN PO Moderate constipation Last administered on 02/26/18at 09:23; Start 02/23/18 at 08:15 Sodium Chloride 500 ml @ 999 mls/hr BOLUS STAT IV Last administered on at 21:53; Start 02/22/18 at 22:18; Stop 02/22/18 at 22:48; Status DC Sodium Chloride (NS Flush) 2 ml BID IV FLUSH Last administered on 02/24/18at 23: 14; Start 02/22/18 at 09:00 A/P Problem List: (1) Acute ischemic stroke ICD Code: I63.9 - Cerebral infarction, unspecified (2) Diabetes mellitus ICD Code: E11.9 - Type 2 diabetes mellitus without complications (3) HTN (hypertension) ICD Code: I10 - Essential (primary) hypertension (4) Morbid obesity with BMI of 50.0-59.9, adult ICD Code: E66.01 - Morbid (severe) obesity due to excess calories; Z68.43 - Body mass index (BMI) 50-59.9 , adult Assessment and Plan A/P CVA Ischemic stroke affecting left MCA [facility] Neurology evaluated and patient has had some increased weakness on her left side She has been placed on a heparin drip to prevent evolution of stroke continue statin Continue supportive care, PT, OT, speech neurology following. Low back pain Patient has a history of low back pain which has been aggravated by her lying on her back for 3 days At her baseline she walks with 2 canes due to back pain and bad knees There is a limit of medication options due to ruling out evolution of stroke Type 2 diabetes Hemoglobin A1c was 7.0 Continue sliding-scale coverage with Accu-Cheks Diabetic diet Hypertension continue Nifedipine will add lisinopril will monitor and adjust the regimen as needed. Morbid obesity Patient will be counseled on the effects of obesity on risk of stroke DVT prophylaxis Heparin Discharge Planning dc planning to rehab when cleared by neurology. Miguel Kruse MD February 27, 2018 06:53
--- NOTE | 2018-02-27 07:48 | HHI.PR ---
Subjective Remarks sr Objective Vital Signs Date Time Temp Pulse Resp B/P (MAP) Pulse Ox O2 Delivery O2 Flow Rate FiO2 02/27/18 05:00 97.7 93 18 180/85 (116) 97 02/27/18 02:17 91 02/27/18 01:23 96 Nasal Cannula 2.00 02/27/18 00:01 97.8 94 18 193/88 (123) 95 02/26/18 20:00 98.0 93 18 177/79 (111) 95 02/26/18 17:15 96 Nasal Cannula 2.00 02/26/18 16:10 82 02/26/18 16:00 98.1 88 16 171/80 (110) 98 02/26/18 12:00 97.9 86 16 175/88 (117) 96 02/26/18 12:00 88 02/26/18 08:15 92 02/26/18 08:00 97.7 89 16 187/93 (124) 95 I/O 02/26/18 02/26/18 02/26/18 02/27/18 02/27/18 02/27/18 07:00 15:00 23:00 07:00 15:00 23:00 Intake Total 1469 ml 678.7 ml Balance 1469 ml 678.7 ml IV Total 1469 ml 678.7 ml # Voids 2 1 1 2 Result Diagram: 02/25/18 1132 02/24/18 1226 Objective Remarks vff left droop no change tongue midline left tricep 3/5 left finger ext 0/5 and left ip 3-/5 cannot wiggle left thumb and index and foot +speechbetter Assessment and Plan Assessment and Plan imp r watershed mca margaret cva left distal mca dz mra neck nl echo and holterpend still b12 shots hx pe check hyper,screen keep bp up ivf on hob down today as has worsened again since yest add plavix recheck mri 02/25/18 worse overnoc very weak on left now despite asa plavix sq hep ivf and hob down i reviewed mri this is a slowly inc deep mca penetrator change to ivhep 02/26/18 doing better this am left side a litle stronger if she maintains this today will will start to get her oob tomorrow iv hep on 02/27/18 unclear how much left movement could be slight neglect cannot move left hand at all now this am was doing better yest hob 45 degrees keep bp up ivf on will slowly get up may have worsened again overnoc echo and holter neg Willem Ding MD February 27, 2018 07:48
[2018-02-27] MEDS: NIFEdipine 60 MG SUSTAINED RELEASE TAB PO SCH (08:36)
[2018-02-27] MEDS: SODIUM CHLORIDE 0.9% FLUSH 10 ML FLUSH IV FLUSH SCH ×2 (08:38→20:53)
[2018-02-27] MEDS: INSULIN ASPART SUPPLEMENTAL SCALE SQ SCH ×4 (08:38→20:52)
[2018-02-27] MEDS: MAGNESIUM HYDROXIDE SUSP 30 ML CUP PO PRN (08:41)
[2018-02-27] MEDS ORDERED: LISINOPRIL 10 MG TAB PO SCH (09:00)
[2018-02-27] MEDS: RESP: ALBUTEROL 2.5 MG/IPRATROPIUM 0.5 MG NEB (PRN) NEB (11:42)
[2018-02-27] MEDS: ACETAMINOPHEN 325 MG TAB PO PRN ×2 (11:51→17:09)
[2018-02-27 13:53] LABS: DRVVT 1:1 MIX ND (CORRECTED); DRVVT CONFIRM ND (NEGATIVE); HEXAGONAL PHASE CONFIRM ND (NEGATIVE)
[2018-02-27 19:51] LABS: FACTOR VIII(8) ACTIVITY 118 (50-180)
[2018-02-27] MEDS: ATORVASTATIN 40 MG TAB PO SCH (20:52)
[2018-02-27] MEDS ORDERED: SODIUM CHLOR 0.9% 1000 ML INJ 1,000 ML IV ONE (21:37)
[2018-02-28] VITALS (12 sets, daily range): BP systolic 158–192; BP diastolic 81–91; PULSE 53–112; RESP 18–22; TEMP 97.4–98.8; O2SAT 93–98
[2018-02-28 01:40] LABS: HEMATOCRIT 43.3 % (35.0-46.0); HEMOGLOBIN 14.9 GM/DL (11.6-15.3); MEAN CELL VOLUME 89.1 FL (80.0-100.0); MEAN CORPUSCULAR HEMOGLOBIN 30.6 PG (27.0-34.0); MEAN CORPUSCULAR HGB CONC 34.3 % (32.0-36.0); MEAN PLATELET VOLUME 8.7 FL (7.0-11.0); PLATELET COUNT 230 TH/MM3 (150-450); RED BLOOD COUNT 4.86 MIL/MM3 (4.00-5.30); RED CELL DISTRIBUTION WIDTH 14.3 % (11.6-17.2); WHITE BLOOD COUNT 10.6 TH/MM3 (4.0-11.0)
[2018-02-28] MEDS: NYSTATIN 100,000 U/GM PWD 15 GM BTL TOPICAL SCH ×3 (05:52→22:13)
[2018-02-28] MEDS: ACETAMINOPHEN 325 MG TAB PO PRN ×3 (05:56→16:01)
[2018-02-28] MEDS: HEPARIN-D5W 25,000 U/250 ML 250 ML IV PRN (06:11)
[2018-02-28] MEDS: RESP: ALBUTEROL 2.5 MG/IPRATROPIUM 0.5 MG NEB (PRN) NEB ×2 (06:21→16:06)
[2018-02-28] MEDS: NIFEdipine 60 MG SUSTAINED RELEASE TAB PO SCH (09:00)
[2018-02-28] MEDS: INSULIN ASPART SUPPLEMENTAL SCALE SQ SCH ×4 (09:14→22:09)
[2018-02-28] MEDS: SODIUM CHLORIDE 0.9% FLUSH 10 ML FLUSH IV FLUSH SCH ×2 (09:15→22:12)
[2018-02-28] MEDS: SENNOSIDES 8.6 MG TAB PO PRN (09:18)
--- NOTE | 2018-02-28 09:38 | HHI.PR ---
Subjective Remarks sr Objective Vital Signs Date Time Temp Pulse Resp B/P (MAP) Pulse Ox O2 Delivery O2 Flow Rate FiO2 02/28/18 09:34 100 02/28/18 09:18 94 Nasal Cannula 2.00 02/28/18 07:20 97.4 72 21 165/91 (115) 93 02/28/18 06:24 98 Nasal Cannula 2.00 02/28/18 00:00 98.8 112 22 171/81 (111) 94 02/28/18 00:00 94 Nasal Cannula 2.00 02/27/18 20:07 102 02/27/18 20:00 93 Nasal Cannula 2.00 02/27/18 20:00 98.6 109 17 137/81 (99) 93 02/27/18 17:29 116 02/27/18 16:00 98.7 114 16 162/83 (109) 95 02/27/18 14:05 118 02/27/18 12:00 Nasal Cannula 2.00 02/27/18 12:00 98.4 118 16 174/84 (114) 96 02/27/18 09:58 102 I/O 02/27/18 02/27/18 02/27/18 02/28/18 02/28/18 02/28/18 07:00 15:00 23:00 07:00 15:00 23:00 Intake Total 678.7 ml 792 ml Output Total 1550 ml Balance 678.7 ml 792 ml -1550 ml IV Total 678.7 ml 792 ml Output Urine Total 1550 ml # Voids 2 # Bowel Movements 0 Result Diagram: 02/28/18 0104 02/24/18 1226 Objective Remarks vff left droop no change tongue midline left tricep 0/5 left finger ext 0/5 and left ip 41/5 cannot wiggle left thumb and index and foot camove +speechbetter Assessment and Plan Assessment and Plan imp r watershed mca margaret cva left distal mca dz mra neck nl echo and holterpend still b12 shots hx pe check hyper,screen keep bp up ivf on hob down today as has worsened again since yest add plavix recheck mri 02/25/18 worse overnoc very weak on left now despite asa plavix sq hep ivf and hob down i reviewed mri this is a slowly inc deep mca penetrator change to ivhep 02/26/18 doing better this am left side a litle stronger if she maintains this today will will start to get her oob tomorrow iv hep on 02/27/18 unclear how much left movement could be slight neglect cannot move left hand at all now this am was doing better yest hob 45 degrees keep bp up ivf on will slowly get up may have worsened again overnoc echo and holter neg 02/28/18 unfortunately has slowly progressed left hp and arm no movement and lle not great oob ok dc hep asa and plavix will need rehab keep bp up and ivf on Willem Ding MD February 28, 2018 09:38
--- NOTE | 2018-02-28 09:54 | HHI.PR ---
Subjective Remarks in no acute distress. still with left sided weakness. Objective Vitals Vital Signs Date Time Temp Pulse Resp B/P (MAP) Pulse Ox O2 Delivery O2 Flow Rate FiO2 02/28/18 09:34 100 02/28/18 09:18 94 Nasal Cannula 2.00 02/28/18 07:20 97.4 72 21 165/91 (115) 93 02/28/18 06:24 98 Nasal Cannula 2.00 02/28/18 00:00 98.8 112 22 171/81 (111) 94 02/28/18 00:00 94 Nasal Cannula 2.00 02/27/18 20:07 102 02/27/18 20:00 93 Nasal Cannula 2.00 02/27/18 20:00 98.6 109 17 137/81 (99) 93 02/27/18 17:29 116 02/27/18 16:00 98.7 114 16 162/83 (109) 95 02/27/18 14:05 118 02/27/18 12:00 Nasal Cannula 2.00 02/27/18 12:00 98.4 118 16 174/84 (114) 96 02/27/18 09:58 102 I/O 02/27/18 02/27/18 02/27/18 02/28/18 02/28/18 02/28/18 07:00 15:00 23:00 07:00 15:00 23:00 Intake Total 678.7 ml 792 ml Output Total 1550 ml Balance 678.7 ml 792 ml -1550 ml IV Total 678.7 ml 792 ml Output Urine Total 1550 ml # Voids 2 # Bowel Movements 0 Result Diagram: 02/28/18 0104 02/24/18 1226 Imaging Last Impressions Brain MRI 02/24/18 0000 Signed Impressions: Service Date/Time: Saturday, February 24, 2018 14:58 - CONCLUSION: No change in acute infarct in the right basal ganglia. Jax Bran MD Neck Magnetic Resonance Angiography 02/22/18 0901 Signed Impressions: Service Date/Time: Thursday, February 22, 2018 10:06 - CONCLUSION: Negative MRA of the carotids for source of emboli. 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 Aleksandr Clay MD FACR Carotid Artery Ultrasound 02/22/18 Signed Impressions: Service Date/Time: Thursday, February 22, 2018 08:21 - CONCLUSION: 1. Elevated velocities in the proximal common carotid artery which may reflect an ostial stenosis not imaged on this exam. 2. Mild bilateral carotid plaque with mild, less than 50%%, stenosis. Pro Tejeda MD Head CT 02/21/181954 Signed Impressions: Service Date/Time: February 21:54 - CONCLUSION: 1. Remote infarct right periventricular white matter with white matter ischemic changes. No acute findings. Andrés Recinos MD Chest X-Ray 02/21/181954 Signed Impressions: Service Date/Time: February 20:01 - CONCLUSION: 1. Minimal basilar atelectasis. Andrés Recinos MD Tibia/Fibula X-Ray 02/21/18 Signed Impressions: Service Date/Time: February 20:03 - CONCLUSION: 1. Advanced osteoarthritis of the left knee. No acute bony abnormality. Andrés Recinos MD Lower Extremity Ultrasound 02/21/18 Signed Impressions: Service Date/Time: February 21:23 - CONCLUSION: 1. Negative for deep venous thrombosis. There is a left popliteal fossa cyst measuring up to 5.6 x 4.2 x 1.6 cm. Andrés Recinos MD CT Angiography 02/21/18 Signed Impressions: Service Date/Time: February 22:02 - CONCLUSION: 1. No filling defects to suggest pulmonary embolus. Scattered minimal atelectasis or scarring in the lungs. No effusions. Andrés Recinos MD Objective Remarks GENERAL: This is a well-nourished, well-developed patient, in no apparent distress. CARDIOVASCULAR: Regular rate and regular rhythm without murmurs, gallops, or rubs. RESPIRATORY: Clear to auscultation. Breath sounds equal bilaterally. No wheezes , rales, or rhonchi. GASTROINTESTINAL: Abdomen soft, non-tender, nondistended. Normal, active bowel sounds MUSCULOSKELETAL:left upper extremity weakness NEURO: Alert & Oriented x4 to person, place, time, situation. Procedures None Medications and IVs Inpatient Medications Acetaminophen (Tylenol) 650 mg Q4H PRN PO pain 1-10 Last administered on at 17:09; Start 02/25/18 at 08:45 Albuterol/ Ipratropium (Duoneb Neb) 1 ampule Q6HR NEB PRN NEB SHORTNESS OF BREATH Last administered on 02/28/18at 06:21; Start 02/27/18 at 10:15 Alprazolam (Xanax) 0.25 mg Q6H PRN PO anxiety Last administered on 02/27/18at 05: 41; Start 02/24/18 at 10:30; Stop 02/27/18 at 07:46; Status DC Amlodipine Besylate (Norvasc) 5 mg DAILY PO ; Start 02/23/18 at 09:00; Stop at 09:00; Status DC Aspirin (Aspirin Chew) 324 mg ONCE ONCE CHEW Last administered on 02/22/18at 03: 15; Start 02/21/18 at 23:45; Stop 02/21/18 at 23:46; Status DC Aspirin (Aspirin) 325 mg STAT STAT PO Last administered on 02/22/18at 22:23; Start 02/22/18 at 22:17; Stop 02/22/18 at 22:18; Status DC Aspirin (Ecotrin Ec) 325 mg DAILY PO ; Start 02/28/18 at 17:30; Stop 03/03/18 at 20:40; Status UNV Atorvastatin Calcium (Lipitor) 40 mg HS PO Last administered on 02/27/18at 20:52 ; Start 02/22/18 at 21:00 Bisacodyl (Dulcolax Supp) 10 mg DAILY PRN RECTAL SEVERE CONSITIPATION; Start at 08:15 Clonidine (Catapres) 0.1 mg Q6H PRN PO SBP> OR = 180, DBP> OR = 100; Start 02/23 at 07:15; Stop 02/25/18 at 08:21; Status DC Clopidogrel Bisulfate (Plavix) 75 mg DAILY PO ; Start 02/28/18 at 09:45; Status UNV Cyanocobalamin (Vitamin B12 Inj) 1,000 mcg DAILY SQ Last administered on at 09:23; Start 02/23/18 at 09:15; Stop 02/26/18 at 09:14; Status DC Dextrose (D50w (Vial) Inj) 50 ml UNSCH PRN IV PUSH HYPOGLYCEMIA-SEE COMMENTS; Start 02/21/18 at 23:15 Glucagon (Glucagon Inj) 1 mg UNSCH PRN OTHER HYPOGLYCEMIA-SEE COMMENTS; Start 02/21/18 at 23:15 Heparin Sodium (Porcine) (Heparin Inj) 5,000 units Q8HR SQ Last administered on 02/25/18at 06:00; Start 02/22/18 at 06:00; Stop 02/25/18 at 08:21; Status DC Heparin Sodium/ Dextrose 250 ml @ 12 mls/hr TITRATE PRN IV Coagulation Management Last administered on 02/28/18at 06:11; Start 02/25/18 at 18:00; Stop at 09:42; Status DC Insulin Aspart (NovoLOG SUPPLEMENTAL SCALE) 1 ACHS SQ Last administered on 02/28at 09:14; Start 02/22/18 at 08:00 Lactulose (Lactulose Liq) 30 ml DAILY PRN PO SEVERE CONSITIPATION; Start at 23:15 Lisinopril (Prinivil) 10 mg DAILY PO ; Start 02/27/18 at 09:00; Stop 02/27/18 at 09:00; Status DC Lorazepam (Ativan Inj) 1 mg ONCE ONCE IV PUSH Last administered on 02/24/18at 14 :44; Start 02/24/18 at 14:15; Stop 02/24/18 at 14:16; Status DC Magnesium Hydroxide (Milk Of Magnesia Liq) 30 ml Q12H PRN PO Mild constipation Last administered on 02/27/18at 08:41; Start 02/23/18 at 08:15 Magnesium Sulfate/ Dextrose 100 ml @ 100 mls/hr ONCE ONCE IV Last administered on 02/21/18at 23:37; Start 02/21/18 at 23:15; Stop 02/22/18 at 00:14; Status DC Methylprednisolone Sodium Succinate (SoluMEDROL INJ) 40 mg ONCE ONCE IV PUSH Last administered on 02/25/18at 11:29; Start 02/25/18 at 09:00; Stop 02/25/18 at 09: 01; Status DC Naloxone HCl (Narcan Inj) 0.4 mg UNSCH PRN IV PUSH SEE LABEL COMMENTS; Start at 08:15 Nifedipine (Procardia Xl) 60 mg DAILY PO Last administered on 02/24/18at 08:21; Start 02/23/18 at 09:00 Nystatin (Mycostatin Powder) 1 applic Q8HR TOPICAL Last administered on at 05:52; Start 02/22/18 at 14:00 Ondansetron HCl (Zofran Inj) 4 mg Q6H PRN IVP NAUSEA OR VOMITING Last administered on 02/23/18at 10:53; Start 02/21/18 at 23:15 Sennosides (Senokot) 17.2 mg Q12H PRN PO Moderate constipation Last administered on 02/28/18at 09:18; Start 02/23/18 at 08:15 Sodium Chloride 1,000 ml @ 60 mls/hr [id number] ONCE IV Last administered on at 17:02; Start 02/27/18 at 21:37; Stop 02/28/18 at 14:16 Sodium Chloride (NS Flush) 2 ml BID IV FLUSH Last administered on 02/28/18at 09: 15; Start 02/22/18 at 09:00 A/P Problem List: (1) Acute ischemic stroke ICD Code: I63.9 - Cerebral infarction, unspecified (2) Diabetes mellitus ICD Code: E11.9 - Type 2 diabetes mellitus without complications (3) HTN (hypertension) ICD Code: I10 - Essential (primary) hypertension (4) Morbid obesity with BMI of 50.0-59.9, adult ICD Code: E66.01 - Morbid (severe) obesity due to excess calories; Z68.43 - Body mass index (BMI) 50-59.9 , adult Assessment and Plan A/P CVA Ischemic stroke affecting left MCA [facility] Neurology evaluated and patient has had some increased weakness on her left side heparin drip was discontinued and started on aspirin and plavix continue statin Continue supportive care, PT, OT, speech neurology following. Low back pain Patient has a history of low back pain which has been aggravated by her lying on her back for 3 days At her baseline she walks with 2 canes due to back pain and bad knees continue pain control. Type 2 diabetes Hemoglobin A1c was 7.0 Continue sliding-scale coverage with Accu-Cheks Diabetic diet Hypertension permissive hypertension for now. Morbid obesity Patient will be counseled on the effects of obesity on risk of stroke DVT prophylaxis SCD's Discharge Planning dc planning to rehab when cleared by neurology. Miguel Kruse MD February 28, 2018 09:54
[2018-02-28] MEDS: CLOPIDOGREL 75 MG TAB PO SCH (11:52)
[2018-02-28] MEDS: ASPIRIN EC 325 MG TABEC PO SCH (17:02)
[2018-02-28] MEDS: ACETAMINOPHEN/HYDROcodone 325 MG/5 MG TAB PO PRN ×2 (17:02→22:10)
[2018-02-28] MEDS: ATORVASTATIN 40 MG TAB PO SCH (22:09)
[2018-03-01] VITALS (7 sets, daily range): BP systolic 141–188; BP diastolic 76–88; PULSE 96–119; RESP 16–22; TEMP 97.8–99.2; O2SAT 91–96
[2018-03-01] MEDS: ACETAMINOPHEN/HYDROcodone 325 MG/5 MG TAB PO PRN ×3 (05:43→21:58)
[2018-03-01] MEDS: NYSTATIN 100,000 U/GM PWD 15 GM BTL TOPICAL SCH ×3 (05:43→22:02)
[2018-03-01] MEDS: SENNOSIDES 8.6 MG TAB PO PRN (05:43)
--- NOTE | 2018-03-01 07:28 | HHI.PR ---
Subjective Remarks sr still Objective Vital Signs Date Time Temp Pulse Resp B/P (MAP) Pulse Ox O2 Delivery O2 Flow Rate FiO2 03/01/18 06:43 98.7 106 22 171/84 (113) 94 03/01/18 00:00 98.5 96 17 167/78 (107) 95 03/01/18 00:00 94 Nasal Cannula 2.00 02/28/18 20:17 94 Nasal Cannula 2.00 02/28/18 20:15 107 02/28/18 20:00 98.6 104 18 180/86 (117) 93 02/28/18 16:49 108 02/28/18 16:00 98.6 106 20 192/84 (120) 95 02/28/18 12:00 98.2 104 18 179/81 (113) 93 02/28/18 11:36 Nasal Cannula 2.00 02/28/18 09:34 100 02/28/18 09:18 94 Nasal Cannula 2.00 02/28/18 08:00 98.4 102 20 158/86 (110) 95 I/O 02/28/18 02/28/18 02/28/18 03/01/18 03/01/18 03/01/18 06:59 14:59 22:59 06:59 14:59 22:59 Intake Total 720 ml 120 ml Output Total 1550 ml 700 ml Balance -1550 ml 20 ml 120 ml Intake Oral 720 ml 120 ml Output Urine Total 1550 ml 700 ml # Bowel Movements 0 Result Diagram: 02/28/18 0104 Objective Remarks vff left droop little better tongue midline left tricep 0/5 left finger ext 0/5 and left ip 2/5 cannot wiggle left thumb and index but did rotate hand and foot can move +speechbetter Assessment and Plan Assessment and Plan imp r watershed mca margaret cva left distal mca dz mra neck nl echo and holterpend still b12 shots hx pe check hyper,screen keep bp up ivf on hob down today as has worsened again since yest add plavix recheck mri 02/25/18 worse overnoc very weak on left now despite asa plavix sq hep ivf and hob down i reviewed mri this is a slowly inc deep mca penetrator change to ivhep 02/26/18 doing better this am left side a litle stronger if she maintains this today will will start to get her oob tomorrow iv hep on 02/27/18 unclear how much left movement could be slight neglect cannot move left hand at all now this am was doing better yest hob 45 degrees keep bp up ivf on will slowly get up may have worsened again overnoc echo and holter neg 02/28/18 unfortunately has slowly progressed left hp and arm no movement and lle not great oob ok dc hep asa and plavix will need rehab keep bp up and ivf on 03/01/18 may have some inadvertent neglect movement lue? stable overnoc was oob yest ok for rehab dc asa in 3 days plavix keep bp up to 160/for 3 days then could lower it Willem Ding MD March 01, 2018 07:28
[2018-03-01] MEDS: INSULIN ASPART SUPPLEMENTAL SCALE SQ SCH ×3 (08:00→17:00)
--- NOTE | 2018-03-01 08:37 | HHI.PR ---
Subjective Remarks in no acute distress. weakness of the left arm hasn't changed as much. no other complaints. at the bedside. Objective Vitals Vital Signs Date Time Temp Pulse Resp B/P (MAP) Pulse Ox O2 Delivery O2 Flow Rate FiO2 03/01/18 06:43 98.7 106 22 171/84 (113) 94 03/01/18 00:00 98.5 96 17 167/78 (107) 95 03/01/18 00:00 94 Nasal Cannula 2.00 02/28/18 20:17 94 Nasal Cannula 2.00 02/28/18 20:15 107 02/28/18 20:00 98.6 104 18 180/86 (117) 93 02/28/18 16:49 108 02/28/18 16:00 98.6 106 20 192/84 (120) 95 02/28/18 12:00 98.2 104 18 179/81 (113) 93 02/28/18 11:36 Nasal Cannula 2.00 02/28/18 09:34 100 02/28/18 09:18 94 Nasal Cannula 2.00 I/O 02/28/18 02/28/18 02/28/18 03/01/18 03/01/18 03/01/18 07:00 15:00 23:00 07:00 15:00 23:00 Intake Total 720 ml 120 ml Output Total 1550 ml 700 ml Balance -1550 ml 20 ml 120 ml Intake Oral 720 ml 120 ml Output Urine Total 1550 ml 700 ml # Bowel Movements 0 Result Diagram: 02/28/18 0104 Imaging Last Impressions Brain MRI 02/24/18 0000 Signed Impressions: Service Date/Time: Saturday, February 24, 2018 14:58 - CONCLUSION: No change in acute infarct in the right basal ganglia. aJx Bran MD Neck Magnetic Resonance Angiography 02/22/18 0901 Signed Impressions: Service Date/Time: Thursday, February 22, 2018 10:06 - CONCLUSION: Negative MRA of the carotids for source of emboli. 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 Aleksandr Clay MD FACR Carotid Artery Ultrasound 5/4/18 0000 Signed Impressions: Service Date/Time: Thursday, February 22, 2018 08:21 - CONCLUSION: 1. Elevated velocities in the proximal common carotid artery which may reflect an ostial stenosis not imaged on this exam. 2. Mild bilateral carotid plaque with mild, less than 50%%, stenosis. Pro Tejeda MD Head CT 02/21/181954 Signed Impressions: Service Date/Time: February 21:54 - CONCLUSION: 1. Remote infarct right periventricular white matter with white matter ischemic changes. No acute findings. Andrés Recinos MD Chest X-Ray 02/21/181954 Signed Impressions: Service Date/Time: February 20:01 - CONCLUSION: 1. Minimal basilar atelectasis. Andrés Recinos MD Tibia/Fibula X-Ray 02/21/18 Signed Impressions: Service Date/Time: February 20:03 - CONCLUSION: 1. Advanced osteoarthritis of the left knee. No acute bony abnormality. Andrés Recinos MD Lower Extremity Ultrasound 02/21/18 Signed Impressions: Service Date/Time: February 21:23 - CONCLUSION: 1. Negative for deep venous thrombosis. There is a left popliteal fossa cyst measuring up to 5.6 x 4.2 x 1.6 cm. Andrés Recinos MD CT Angiography 02/21/18 Signed Impressions: Service Date/Time: February 22:02 - CONCLUSION: 1. No filling defects to suggest pulmonary embolus. Scattered minimal atelectasis or scarring in the lungs. No effusions. Andrés Recinos MD Objective Remarks GENERAL: This is a well-nourished, well-developed patient, in no apparent distress. CARDIOVASCULAR: Regular rate and regular rhythm without murmurs, gallops, or rubs. RESPIRATORY: Clear to auscultation. Breath sounds equal bilaterally. No wheezes , rales, or rhonchi. GASTROINTESTINAL: Abdomen soft, non-tender, nondistended. Normal, active bowel sounds MUSCULOSKELETAL:left upper extremity weakness NEURO: Alert & Oriented x4 to person, place, time, situation. Procedures None Medications and IVs Inpatient Medications Acetaminophen (Tylenol) 650 mg Q4H PRN PO PAIN 1-5 Last administered on at 11:53; Start 02/25/18 at 08:45 Acetaminophen/ Hydrocodone Bitart ([place] 5-325 Mg) 1 tab Q6H PRN PO PAIN 6-10 Last administered on 03/01/18at 05:43; Start 02/28/18 at 10:00 Albuterol/ Ipratropium (Duoneb Neb) 1 ampule Q6HR NEB PRN NEB SHORTNESS OF BREATH Last administered on 02/28/18at 16:06; Start 02/27/18 at 10:15 Alprazolam (Xanax) 0.25 mg Q6H PRN PO anxiety Last administered on 02/27/18 05: 41; Start 02/24/18 at 10:30; Stop 02/27/18 at 07:46; Status DC Amlodipine Besylate (Norvasc) 5 mg DAILY PO ; Start 02/23/18 at 09:00; Stop at 09:00; Status DC Aspirin (Aspirin Chew) 324 mg ONCE ONCE CHEW Last administered on 02/22/18at 03: 15; Start 02/21/18 at 23:45; Stop 02/21/18 at 23:46; Status DC Aspirin (Aspirin) 325 mg STAT STAT PO Last administered on 02/22/18 22:23; Start 02/22/18 at 22:17; Stop 02/22/18 at 22:18; Status DC Aspirin (Ecotrin Ec) 325 mg DAILY PO Last administered on 02/28/18 17:02; Start 02/28/18 at 18:00; Stop 03/03/18 at 17:59 Atorvastatin Calcium (Lipitor) 40 mg HS PO Last administered on 02/28/18at 22:09 ; Start 02/22/18 at 21:00 Bisacodyl (Dulcolax Supp) 10 mg DAILY PRN RECTAL SEVERE CONSITIPATION; Start at 08:15 Clonidine (Catapres) 0.1 mg Q6H PRN PO SBP> OR = 180, DBP> OR = 100; Start 02/23 at 07:15; Stop 02/25/18 at 08:21; Status DC Clopidogrel Bisulfate (Plavix) 75 mg DAILY PO Last administered on 02/28/18at 11 :52; Start 02/28/18 at 11:00 Cyanocobalamin (Vitamin B12 Inj) 1,000 mcg DAILY SQ Last administered on at 09:23; Start 02/23/18 at 09:15; Stop 02/26/18 at 09:14; Status DC Dextrose (D50w (Vial) Inj) 50 ml UNSCH PRN IV PUSH HYPOGLYCEMIA-SEE COMMENTS; Start 02/21/18 at 23:15 Glucagon (Glucagon Inj) 1 mg UNSCH PRN OTHER HYPOGLYCEMIA-SEE COMMENTS; Start 02/21/18 at 23:15 Heparin Sodium (Porcine) (Heparin Inj) 5,000 units Q12HR SQ ; Start 03/01/18 at 09:00 Heparin Sodium/ Dextrose 250 ml @ 12 mls/hr TITRATE PRN IV Coagulation Management Last administered on 02/28/18at 06:11; Start 02/25/18 at 18:00; Stop at 09:42; Status DC Insulin Aspart (NovoLOG SUPPLEMENTAL SCALE) 1 ACHS SQ Last administered on 02/28at 22:09; Start 02/22/18 at 08:00 Lactulose (Lactulose Liq) 30 ml DAILY PRN PO SEVERE CONSITIPATION; Start at 23:15 Lisinopril (Prinivil) 10 mg DAILY PO ; Start 02/27/18 at 09:00; Stop 02/27/18 at 09:00; Status DC Lorazepam (Ativan Inj) 1 mg ONCE ONCE IV PUSH Last administered on 02/24/18at 14 :44; Start 02/24/18 at 14:15; Stop 02/24/18 at 14:16; Status DC Magnesium Hydroxide (Milk Of Magnesia Liq) 30 ml Q12H PRN PO Mild constipation Last administered on 02/27/18at 08:41; Start 02/23/18 at 08:15 Magnesium Sulfate/ Dextrose 100 ml @ 100 mls/hr ONCE ONCE IV Last administered on 02/21/18at 23:37; Start 02/21/18 at 23:15; Stop 02/22/18 at 00:14; Status DC Methylprednisolone Sodium Succinate (SoluMEDROL INJ) 40 mg ONCE ONCE IV PUSH Last administered on 02/25/18at 11:29; Start 02/25/18 at 09:00; Stop 02/25/18 at 09: 01; Status DC Naloxone HCl (Narcan Inj) 0.4 mg UNSCH PRN IV PUSH SEE LABEL COMMENTS; Start at 08:15 Nifedipine (Procardia Xl) 60 mg DAILY PO Last administered on 02/24/18at 08:21; Start 02/23/18 at 09:00 Nystatin (Mycostatin Powder) 1 applic Q8HR TOPICAL Last administered on at 05:43; Start 02/22/18 at 14:00 Ondansetron HCl (Zofran Inj) 4 mg Q6H PRN IVP NAUSEA OR VOMITING Last administered on 02/23/18at 10:53; Start 02/21/18 at 23:15 Sennosides (Senokot) 17.2 mg Q12H PRN PO Moderate constipation Last administered on 03/01/18at 05:43; Start 02/23/18 at 08:15 Sodium Chloride 1,000 ml @ 60 mls/hr [id number] ONCE IV Last administered on at 17:02; Start 02/27/18 at 21:37; Stop 02/28/18 at 14:16; Status DC Sodium Chloride (NS Flush) 2 ml BID IV FLUSH Last administered on 02/28/18at 22: 12; Start 02/22/18 at 09:00 A/P Problem List: (1) Acute ischemic stroke ICD Code: I63.9 - Cerebral infarction, unspecified (2) Diabetes mellitus ICD Code: E11.9 - Type 2 diabetes mellitus without complications (3) HTN (hypertension) ICD Code: I10 - Essential (primary) hypertension (4) Morbid obesity with BMI of 50.0-59.9, adult ICD Code: E66.01 - Morbid (severe) obesity due to excess calories; Z68.43 - Body mass index (BMI) 50-59.9 , adult Assessment and Plan A/P CVA Ischemic stroke affecting left MCA [facility] [place] Neurology evaluated and patient has had some increased weakness on her left side heparin drip was discontinued and started on aspirin and plavix; will dc aspirin after three days and continue with plavix-per neurology. continue statin Continue supportive care, PT, OT, speech neurology following. Low back pain Patient has a history of low back pain which has been aggravated by her lying on her back for 3 days At her baseline she walks with 2 canes due to back pain and bad knees continue pain control. Type 2 diabetes Hemoglobin A1c was 7.0 Continue sliding-scale coverage with Accu-Cheks Diabetic diet Hypertension permissive hypertension for now. will try to keep the systolic BP around 160 for three days then gradually lower the BP- per neurology. Morbid obesity Patient will be counseled on the effects of obesity on risk of stroke DVT prophylaxis SCD's Discharge Planning ok for discharge- [facility] is following. see med list. f/u; pcp and neurology. d/w the patient and her . time spent 35 min. Miguel Kruse MD March 01, 2018 08:36
[2018-03-01] MEDS ORDERED: Albuterol-Ipratropium Neb NEB (08:41)
[2018-03-01] MEDS ORDERED: NOVOLOGSS SQ (08:41)
[2018-03-01] MEDS ORDERED: NIFE60TA8 PO (08:41)
[2018-03-01] MEDS ORDERED: ATOR40TA16 PO (08:41)
[2018-03-01] MEDS ORDERED: ASPI325T33 PO (08:41)
[2018-03-01] MEDS ORDERED: PLAV75TA29 PO (08:41)
[2018-03-01] MEDS ORDERED: HYDR-3516 PO (08:41)
--- NOTE | 2018-03-01 08:42 | HHI.DS ---
Discharge Summary Admission Date February 22, 2018 at 22:31 Discharge Date: March 01, 2018 Admitting Diagnosis CVA/TIA r/o, hypertension, positive troponin (1) Acute ischemic stroke ICD Code: I63.9 - Cerebral infarction, unspecified Diagnosis: Principal (2) Diabetes mellitus ICD Code: E11.9 - Type 2 diabetes mellitus without complications Diagnosis: Secondary (3) HTN (hypertension) ICD Code: I10 - Essential (primary) hypertension Diagnosis: Secondary (4) Morbid obesity with BMI of 50.0-59.9, adult ICD Code: E66.01 - Morbid (severe) obesity due to excess calories; Z68.43 - Body mass index (BMI) 50-59.9 , adult Diagnosis: Secondary Procedures None Brief History - From Admission 67-year-old female with past medical history significant for rheumatoid arthritis, diabetes mellitus, hypertension, hyperlipidemia and history of previous PE 3 years ago presents to the emergency department for the evaluation of weakness and slurred speech. The patient has a 3 day history of bilateral lower extremity weakness that then transitions to her left side approximately 2 days ago. She reports that she has left upper and lower extremity weakness that has not improved over the past 2 days. Her also reports intermittent slurred speech. The patient was seen at [facility] earlier today where she was treated for hypertension and released. The patient denies any headaches. No slurred speech at this time. Does have slight left-sided weakness. Denies any chest pain or shortness of breath. No abdominal pain. No nausea/vomiting/diarrhea. No fever/chills CBC/BMP: 02/28/18 0104 Significant Findings Laboratory Tests Test 02/26/18 10:51 02/26/18 19:11 02/27/18 03:46 02/27/18 11:40 Activated Partial Thromboplast Time 23.1 SEC (24.3-30.1) 32.9 SEC (24.3-30.1) 35.0 SEC (24.3-30.1) 32.0 SEC (24.3-30.1) Test 02/27/18 19:36 02/28/18 01:04 02/28/18 06:10 Activated Partial Thromboplast Time 35.7 SEC (24.3-30.1) 38.3 SEC (24.3-30.1) 39.2 SEC (24.3-30.1) Imaging Last Impressions Brain MRI 02/24/18 0000 Signed Impressions: Service Date/Time: Saturday, February 24, 2018 14:58 - CONCLUSION: No change in acute infarct in the right basal ganglia. Jax Bran MD Neck Magnetic Resonance Angiography 02/22/18900 Signed Impressions: Service Date/Time: Thursday, February 22, 2018 10:06 - CONCLUSION: Negative MRA of the carotids for source of emboli. Aleksandr Clay MD FACR Head Magnetic Resonance Angiography 02/22/18 Signed Impressions: Service Date/Time: Thursday, February 22, 2018 10:06 - CONCLUSION: Moderate to high-grade stenosis M2 segment the left middle cerebral artery. Aleksandr Clay MD FACR Carotid Artery Ultrasound 02/22/18 Signed Impressions: Service Date/Time: Thursday, February 22, 2018 08:21 - CONCLUSION: 1. Elevated velocities in the proximal common carotid artery which may reflect an ostial stenosis not imaged on this exam. 2. Mild bilateral carotid plaque with mild, less than 50%%, stenosis. Pro Tejeda MD Head CT 02/21/181954 Signed Impressions: Service Date/Time: February 21:54 - CONCLUSION: 1. Remote infarct right periventricular white matter with white matter ischemic changes. No acute findings. Andrés Recinos MD Chest X-Ray 02/21/181954 Signed Impressions: Service Date/Time: February 20:01 - CONCLUSION: 1. Minimal basilar atelectasis. Andrés Recinos MD Tibia/Fibula X-Ray 02/21/18 Signed Impressions: Service Date/Time: February 20:03 - CONCLUSION: 1. Advanced osteoarthritis of the left knee. No acute bony abnormality. Andrés Recinos MD Lower Extremity Ultrasound 02/21/18 Signed Impressions: Service Date/Time: February 21:23 - CONCLUSION: 1. Negative for deep venous thrombosis. There is a left popliteal fossa cyst measuring up to 5.6 x 4.2 x 1.6 cm. Andrés Recinos MD CT Angiography 02/21/18 0000 Signed Impressions: Service Date/Time: February 22:02 - CONCLUSION: 1. No filling defects to suggest pulmonary embolus. Scattered minimal atelectasis or scarring in the lungs. No effusions. Andrés Recinos MD PE at Discharge GENERAL: This is a well-nourished, well-developed patient, in no apparent distress. CARDIOVASCULAR: Regular rate and regular rhythm without murmurs, gallops, or rubs. RESPIRATORY: Clear to auscultation. Breath sounds equal bilaterally. No wheezes , rales, or rhonchi. GASTROINTESTINAL: Abdomen soft, non-tender, nondistended. Normal, active bowel sounds MUSCULOSKELETAL:left upper extremity weakness NEURO: Alert & Oriented x4 to person, place, time, situation. Hospital Course CVA Ischemic stroke affecting left MCA [facility] Neurology evaluated and patient has had some increased weakness on her left side heparin drip was discontinued and started on aspirin and plavix; will dc aspirin after three days and continue with plavix-per neurology. continue statin Continue supportive care, PT, OT, speech neurology following. Low back pain Patient has a history of low back pain which has been aggravated by her lying on her back for 3 days At her baseline she walks with 2 canes due to back pain and bad knees continue pain control. Type 2 diabetes Hemoglobin A1c was 7.0 Continue sliding-scale coverage with Accu-Cheks Diabetic diet Hypertension permissive hypertension for now. will try to keep the systolic BP around 160 for three days then gradually lower the BP- per neurology. Morbid obesity Patient will be counseled on the effects of obesity on risk of stroke DVT prophylaxis SCD's Pt Condition on Discharge: Fair Discharge Disposition: Discharge to SNF Discharge Time: > 30 minutes Discharge Instructions DIET: Follow Instructions for: Heart Healthy Diet, Diabetic Diet Activities you can perform: Regular-No Restrictions Miguel Kruse MD March 01, 2018 08:42
[2018-03-01] MEDS: ASPIRIN EC 325 MG TABEC PO SCH (08:57)
[2018-03-01] MEDS: CLOPIDOGREL 75 MG TAB PO SCH (08:57)
[2018-03-01] MEDS: HEPARIN SODIUM - SQ 10,000 UNITS/ML VIAL SQ SCH ×2 (08:58→21:58)
[2018-03-01] MEDS: NIFEdipine 60 MG SUSTAINED RELEASE TAB PO SCH (08:58)
[2018-03-01] MEDS: SODIUM CHLORIDE 0.9% FLUSH 10 ML FLUSH IV FLUSH SCH ×2 (09:00→21:58)
[2018-03-01] MEDS: LACTULOSE SYRUP 20 GM/30 ML CUP PO PRN (10:49)
[2018-03-01] MEDS: RESP: ALBUTEROL 2.5 MG/IPRATROPIUM 0.5 MG NEB (PRN) NEB (12:01)
[2018-03-01] MEDS: ACETAMINOPHEN 325 MG TAB PO PRN (17:14)
[2018-03-01] MEDS: ATORVASTATIN 40 MG TAB PO SCH (21:57)
[2018-03-02] VITALS: BP 138/76; PULSE 110; RESP 16; TEMP 98.2; O2SAT 94
[2018-03-02] MEDS: INSULIN ASPART SUPPLEMENTAL SCALE SQ SCH ×5 (00:28→21:34)
[2018-03-02] MEDS: NYSTATIN 100,000 U/GM PWD 15 GM BTL TOPICAL SCH ×3 (05:44→21:37)
[2018-03-02] MEDS: ACETAMINOPHEN/HYDROcodone 325 MG/5 MG TAB PO PRN ×3 (05:45→18:44)
[2018-03-02 08:00] VITALS: PULSE 101
[2018-03-02] MEDS: NIFEdipine 60 MG SUSTAINED RELEASE TAB PO SCH (08:00)
[2018-03-02] MEDS: ASPIRIN EC 325 MG TABEC PO SCH (08:01)
[2018-03-02] MEDS: HEPARIN SODIUM - SQ 10,000 UNITS/ML VIAL SQ SCH ×2 (08:02→21:35)
[2018-03-02] MEDS: CLOPIDOGREL 75 MG TAB PO SCH (08:02)
[2018-03-02] MEDS: SODIUM CHLORIDE 0.9% FLUSH 10 ML FLUSH IV FLUSH SCH ×2 (09:00→21:35)
--- NOTE | 2018-03-02 10:15 | HHI.PR ---
Subjective Remarks in no acute distress. no new complaints. awaiting insurance to authorize the transfer to rehab. Objective Vitals Vital Signs Date Time Temp Pulse Resp B/P (MAP) Pulse Ox O2 Delivery O2 Flow Rate FiO2 03/02/18 00:00 98.2 110 16 138/76 (96) 94 03/01/18 21:00 96 Nasal Cannula 2.00 03/01/18 20:00 98.6 114 16 141/80 (100) 91 03/01/18 16:00 98.8 107 20 170/78 (108) 94 03/01/18 14:11 Nasal Cannula 2.00 03/01/18 12:05 94 Nasal Cannula 2.00 03/01/18 12:00 99.2 119 20 188/88 (121) 93 I/O 03/01/18 03/01/18 03/01/18 03/02/18 03/02/18 03/02/18 07:00 15:00 23:00 07:00 15:00 23:00 Intake Total 120 ml Output Total 1000 ml Balance 120 ml -1000 ml Intake Oral 120 ml Output Urine Total 1000 ml Result Diagram: 02/28/18 0104 Imaging Last Impressions Brain MRI 02/24/18 0000 Signed Impressions: Service Date/Time: Saturday, February 24, 2018 14:58 - CONCLUSION: No change in acute infarct in the right basal ganglia. Jax Bran MD Neck Magnetic Resonance Angiography 02/22/18 0901 Signed Impressions: Service Date/Time: Thursday, February 22, 2018 10:06 - CONCLUSION: Negative MRA of the carotids for source of emboli. Aleksandr Clay MD FACR Head Magnetic Resonance Angiography 02/22/18 Signed Impressions: Service Date/Time: Thursday, February 22, 2018 10:06 - CONCLUSION: Moderate to high-grade stenosis M2 segment the left middle cerebral artery. Aleksandr Clay MD FACR Carotid Artery Ultrasound 02/22/18 Signed Impressions: Service Date/Time: Thursday, February 22, 2018 08:21 - CONCLUSION: 1. Elevated velocities in the proximal common carotid artery which may reflect an ostial stenosis not imaged on this exam. 2. Mild bilateral carotid plaque with mild, less than 50%%, stenosis. rPo Tejeda MD Head CT 02/21/181954 Signed Impressions: Service Date/Time: February 21:54 - CONCLUSION: 1. Remote infarct right periventricular white matter with white matter ischemic changes. No acute findings. Andrés Recinos MD Chest X-Ray 02/21/181954 Signed Impressions: Service Date/Time: February 20:01 - CONCLUSION: 1. Minimal basilar atelectasis. Andrés Recinos MD Tibia/Fibula X-Ray 02/21/18 Signed Impressions: Service Date/Time: February 20:03 - CONCLUSION: 1. Advanced osteoarthritis of the left knee. No acute bony abnormality. Andrés Recinos MD Lower Extremity Ultrasound 02/21/18 Signed Impressions: Service Date/Time: February 21:23 - CONCLUSION: 1. Negative for deep venous thrombosis. There is a left popliteal fossa cyst measuring up to 5.6 x 4.2 x 1.6 cm. Andrés Recinos MD CT Angiography 02/21/18 Signed Impressions: Service Date/Time: February 22:02 - CONCLUSION: 1. No filling defects to suggest pulmonary embolus. Scattered minimal atelectasis or scarring in the lungs. No effusions. Andrés Recinos MD Objective Remarks GENERAL: This is a well-nourished, well-developed patient, in no apparent distress. CARDIOVASCULAR: Regular rate and regular rhythm without murmurs, gallops, or rubs. RESPIRATORY: Clear to auscultation. Breath sounds equal bilaterally. No wheezes , rales, or rhonchi. GASTROINTESTINAL: Abdomen soft, non-tender, nondistended. Normal, active bowel sounds MUSCULOSKELETAL:left upper extremity weakness NEURO: Alert & Oriented x4 to person, place, time, situation. Procedures None Medications and IVs Inpatient Medications Acetaminophen (Tylenol) 650 mg Q4H PRN PO PAIN 1-5 Last administered on at 17:14; Start 02/25/18 at 08:45 Acetaminophen/ Hydrocodone Bitart ([place] 5-325 Mg) 1 tab Q6H PRN PO PAIN 6-10 Last administered on 03/02/18at 05:45; Start 02/28/18 at 10:00 Albuterol/ Ipratropium (Duoneb Neb) 1 ampule Q6HR NEB PRN NEB SHORTNESS OF BREATH Last administered on 03/01/18at 12:01; Start 02/27/18 at 10:15 Alprazolam (Xanax) 0.25 mg Q6H PRN PO anxiety Last administered on 02/27/18at 05: 41; Start 02/24/18 at 10:30; Stop 02/27/18 at 07:46; Status DC Amlodipine Besylate (Norvasc) 5 mg DAILY PO ; Start 02/23/18 at 09:00; Stop at 09:00; Status DC Aspirin (Aspirin Chew) 324 mg ONCE ONCE CHEW Last administered on 02/22/18at 03: 15; Start 02/21/18 at 23:45; Stop 02/21/18 at 23:46; Status DC Aspirin (Aspirin) 325 mg STAT STAT PO Last administered on 02/22/18at 22:23; Start 02/22/18 at 22:17; Stop 02/22/18 at 22:18; Status DC Aspirin (Ecotrin Ec) 325 mg DAILY PO Last administered on 03/02/18at 08:01; Start 02/28/18 at 18:00; Stop 03/03/18 at 17:59 Atorvastatin Calcium (Lipitor) 40 mg HS PO Last administered on 03/01/18at 21:57 ; Start 02/22/18 at 21:00 Bisacodyl (Dulcolax Supp) 10 mg DAILY PRN RECTAL SEVERE CONSITIPATION Last administered on 03/02/18at 05:45; Start 02/23/18 at 08:15 Clonidine (Catapres) 0.1 mg Q6H PRN PO SBP> OR = 180, DBP> OR = 100; Start 02/23 at 07:15; Stop 02/25/18 at 08:21; Status DC Clopidogrel Bisulfate (Plavix) 75 mg DAILY PO Last administered on 03/02/18at 08 :02; Start 02/28/18 at 11:00 Cyanocobalamin (Vitamin B12 Inj) 1,000 mcg DAILY SQ Last administered on at 09:23; Start 02/23/18 at 09:15; Stop 02/26/18 at 09:14; Status DC Dextrose (D50w (Vial) Inj) 50 ml UNSCH PRN IV PUSH HYPOGLYCEMIA-SEE COMMENTS; Start 02/21/18 at 23:15 Glucagon (Glucagon Inj) 1 mg UNSCH PRN OTHER HYPOGLYCEMIA-SEE COMMENTS; Start 02/21/18 at 23:15 Heparin Sodium (Porcine) (Heparin Inj) 5,000 units Q12HR SQ Last administered on 03/02/18at 08:02; Start 03/01/18 at 09:00 Heparin Sodium/ Dextrose 250 ml @ 12 mls/hr TITRATE PRN IV Coagulation Management Last administered on 02/28/18at 06:11; Start 02/25/18 at 18:00; Stop at 09:42; Status DC Insulin Aspart (NovoLOG SUPPLEMENTAL SCALE) 1 ACHS SQ Last administered on 03/02at 10:05; Start 02/22/18 at 08:00 Lactulose (Lactulose Liq) 30 ml DAILY PRN PO SEVERE CONSITIPATION Last administered on 03/01/18at 10:49; Start 02/21/18 at 23:15 Lisinopril (Prinivil) 10 mg DAILY PO ; Start 02/27/18 at 09:00; Stop 02/27/18 at 09:00; Status DC Lorazepam (Ativan Inj) 1 mg ONCE ONCE IV PUSH Last administered on 02/24/18at 14 :44; Start 02/24/18 at 14:15; Stop 02/24/18 at 14:16; Status DC Magnesium Hydroxide (Milk Of Magnesia Liq) 30 ml Q12H PRN PO Mild constipation Last administered on 02/27/18at 08:41; Start 02/23/18 at 08:15 Magnesium Sulfate/ Dextrose 100 ml @ 100 mls/hr ONCE ONCE IV Last administered on 02/21/18at 23:37; Start 02/21/18 at 23:15; Stop 02/22/18 at 00:14; Status DC Methylprednisolone Sodium Succinate (SoluMEDROL INJ) 40 mg ONCE ONCE IV PUSH Last administered on 02/25/18at 11:29; Start 02/25/18 at 09:00; Stop 02/25/18 at 09: 01; Status DC Naloxone HCl (Narcan Inj) 0.4 mg UNSCH PRN IV PUSH SEE LABEL COMMENTS; Start at 08:15 Nifedipine (Procardia Xl) 60 mg DAILY PO Last administered on 03/02/18at 08:00; Start 02/23/18 at 09:00 Nystatin (Mycostatin Powder) 1 applic Q8HR TOPICAL Last administered on at 05:44; Start 02/22/18 at 14:00 Ondansetron HCl (Zofran Inj) 4 mg Q6H PRN IVP NAUSEA OR VOMITING Last administered on 02/23/18 10:53; Start 02/21/18 at 23:15 Sennosides (Senokot) 17.2 mg Q12H PRN PO Moderate constipation Last administered on 03/01/18 05:43; Start 02/23/18 at 08:15 Sodium Chloride 1,000 ml @ 60 mls/hr [id number] ONCE IV Last administered on 17:02; Start 02/27/18 at 21:37; Stop 02/28/18 at 14:16; Status DC Sodium Chloride (NS Flush) 2 ml BID IV FLUSH Last administered on 03/02/18at 09: 00; Start 02/22/18 at 09:00 A/P Problem List: (1) Acute ischemic stroke ICD Code: I63.9 - Cerebral infarction, unspecified (2) Diabetes mellitus ICD Code: E11.9 - Type 2 diabetes mellitus without complications (3) HTN (hypertension) ICD Code: I10 - Essential (primary) hypertension (4) Morbid obesity with BMI of 50.0-59.9, adult ICD Code: E66.01 - Morbid (severe) obesity due to excess calories; Z68.43 - Body mass index (BMI) 50-59.9 , adult Assessment and Plan A/P CVA Ischemic stroke affecting left MCA [facility] [place] Neurology evaluated and patient has had some increased weakness on her left side heparin drip was discontinued and started on aspirin and plavix; will dc aspirin after two days and continue with plavix-per neurology. continue statin Continue supportive care, PT, OT, speech neurology cleared for discharge. Low back pain Patient has a history of low back pain which has been aggravated by her lying on her back for 3 days At her baseline she walks with 2 canes due to back pain and bad knees continue pain control. Type 2 diabetes Hemoglobin A1c was 7.0 Continue sliding-scale coverage with Accu-Cheks Diabetic diet Hypertension permissive hypertension for now. will try to keep the systolic BP around 160 for three days then gradually lower the BP- per neurology. Morbid obesity Patient will be counseled on the effects of obesity on risk of stroke DVT prophylaxis SCD's Discharge Planning ok for discharge- [facility] is following. awaiting the insurance authorization. see med list. f/u; pcp and neurology. d/w the patient and her . time spent 35 min. Miguel Kruse MD March 02, 2018 10:15
[2018-03-02 12:44] VITALS: BP 168/79; PULSE 104; RESP 20; TEMP 98.5; O2SAT 95
[2018-03-02 12:45] VITALS: BP 136/68; PULSE 101; RESP 20; TEMP 98.5; O2SAT 95
[2018-03-02 20:00] VITALS: BP 138/64; PULSE 100; PULSE 98; RESP 20; TEMP 97.8; O2SAT 95
[2018-03-02 20:01] VITALS: O2SAT 94
[2018-03-02] MEDS: ATORVASTATIN 40 MG TAB PO SCH (21:34)
[2018-03-03] VITALS (10 sets, daily range): BP systolic 119–157; BP diastolic 56–75; PULSE 64–100; RESP 18–20; TEMP 97–98; O2SAT 93–100
[2018-03-03] MEDS: ACETAMINOPHEN/HYDROcodone 325 MG/5 MG TAB PO PRN ×4 (00:26→21:59)
[2018-03-03] MEDS: NYSTATIN 100,000 U/GM PWD 15 GM BTL TOPICAL SCH ×3 (06:04→21:11)
[2018-03-03] MEDS: INSULIN ASPART SUPPLEMENTAL SCALE SQ SCH ×4 (08:00→21:11)
--- NOTE | 2018-03-03 08:32 | HHI.PR ---
Subjective Remarks in no acute distress. no new complaints. slight improvement in her left upper extremity weakness. awaiting transferring to rehab. Objective Vitals Vital Signs Date Time Temp Pulse Resp B/P (MAP) Pulse Ox O2 Delivery O2 Flow Rate FiO2 03/03/18 07:58 97.8 91 20 141/67 (91) 95 03/03/18 04:29 84 03/03/18 04:00 97.0 97 18 157/75 (102) 95 03/03/18 00:20 97 03/03/18 00:00 97.8 95 19 152/70 (97) 96 03/02/18 23:04 Nasal Cannula 2.00 03/02/18 20:01 94 Nasal Cannula 2.00 03/02/18 20:00 97.8 100 20 138/64 (88) 95 03/02/18 20:00 98 03/02/18 19:25 Nasal Cannula 2.00 03/02/18 12:45 98.5 101 20 136/68 (90) 95 03/02/18 12:44 98.5 104 20 168/79 (108) 95 03/02/18 12:06 Nasal Cannula 2.00 I/O 03/02/18 03/02/18 03/02/18 03/03/18 03/03/18 03/03/18 07:00 15:00 23:00 07:00 15:00 23:00 Output Total 1000 ml Balance -1000 ml Output Urine Total 1000 ml # Voids 1 2 # Bowel Movements 7 Result Diagram: 02/28/18 0104 Imaging Last Impressions Brain MRI 02/24/18 0000 Signed Impressions: Service Date/Time: Saturday, February 24, 2018 14:58 - CONCLUSION: No change in acute infarct in the right basal ganglia. Jax Bran MD Neck Magnetic Resonance Angiography 02/22/18 0901 Signed Impressions: Service Date/Time: Thursday, February 22, 2018 10:06 - CONCLUSION: Negative MRA of the carotids for source of emboli. 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 Aleksandr Clay MD FACR Carotid Artery Ultrasound 02/22/18 0000 Signed Impressions: Service Date/Time: Thursday, February 22, 2018 08:21 - CONCLUSION: 1. Elevated velocities in the proximal common carotid artery which may reflect an ostial stenosis not imaged on this exam. 2. Mild bilateral carotid plaque with mild, less than 50%%, stenosis. Pro Tejeda MD Head CT 02/21/181954 Signed Impressions: Service Date/Time: February 21:54 - CONCLUSION: 1. Remote infarct right periventricular white matter with white matter ischemic changes. No acute findings. Andrés Recinos MD Chest X-Ray 02/21/181954 Signed Impressions: Service Date/Time: February 20:01 - CONCLUSION: 1. Minimal basilar atelectasis. Andrés Recinos MD Tibia/Fibula X-Ray 02/21/18 Signed Impressions: Service Date/Time: February 20:03 - CONCLUSION: 1. Advanced osteoarthritis of the left knee. No acute bony abnormality. Andrés Recinos MD Lower Extremity Ultrasound 02/21/18 Signed Impressions: Service Date/Time: February 21:23 - CONCLUSION: 1. Negative for deep venous thrombosis. There is a left popliteal fossa cyst measuring up to 5.6 x 4.2 x 1.6 cm. Andrés Recinos MD CT Angiography 02/21/18 Signed Impressions: Service Date/Time: February 22:02 - CONCLUSION: 1. No filling defects to suggest pulmonary embolus. Scattered minimal atelectasis or scarring in the lungs. No effusions. Anrdés Recinos MD Objective Remarks GENERAL: This is a well-nourished, well-developed patient, in no apparent distress. CARDIOVASCULAR: Regular rate and regular rhythm without murmurs, gallops, or rubs. RESPIRATORY: Clear to auscultation. Breath sounds equal bilaterally. No wheezes , rales, or rhonchi. GASTROINTESTINAL: Abdomen soft, non-tender, nondistended. Normal, active bowel sounds MUSCULOSKELETAL:left upper extremity weakness NEURO: Alert & Oriented x4 to person, place, time, situation. Procedures None Medications and IVs Inpatient Medications Acetaminophen (Tylenol) 650 mg Q4H PRN PO PAIN 1-5 Last administered on at 17:14; Start 02/25/18 at 08:45 Acetaminophen/ Hydrocodone Bitart ([place] 5-325 Mg) 1 tab Q6H PRN PO PAIN 6-10 Last administered on 03/03/18at 00:26; Start 02/28/18 at 10:00 Albuterol/ Ipratropium (Duoneb Neb) 1 ampule Q6HR NEB PRN NEB SHORTNESS OF BREATH Last administered on 03/01/18at 12:01; Start 02/27/18 at 10:15 Alprazolam (Xanax) 0.25 mg Q6H PRN PO anxiety Last administered on 02/27/18at 05: 41; Start 02/24/18 at 10:30; Stop 02/27/18 at 07:46; Status DC Amlodipine Besylate (Norvasc) 5 mg DAILY PO ; Start 02/23/18 at 09:00; Stop at 09:00; Status DC Aspirin (Aspirin Chew) 324 mg ONCE ONCE CHEW Last administered on 02/22/18at 03: 15; Start 02/21/18 at 23:45; Stop 02/21/18 at 23:46; Status DC Aspirin (Aspirin) 325 mg STAT STAT PO Last administered on 02/22/18at 22:23; Start 02/22/18 at 22:17; Stop 02/22/18 at 22:18; Status DC Aspirin (Ecotrin Ec) 325 mg DAILY PO Last administered on 03/02/18at 08:01; Start 02/28/18 at 18:00; Stop 03/03/18 at 17:59 Atorvastatin Calcium (Lipitor) 40 mg HS PO Last administered on 03/02/18at 21:34 ; Start 02/22/18 at 21:00 Bisacodyl (Dulcolax Supp) 10 mg DAILY PRN RECTAL SEVERE CONSITIPATION Last administered on 03/02/18at 05:45; Start 02/23/18 at 08:15 Clonidine (Catapres) 0.1 mg Q6H PRN PO SBP> OR = 180, DBP> OR = 100; Start 02/23 at 07:15; Stop 02/25/18 at 08:21; Status DC Clopidogrel Bisulfate (Plavix) 75 mg DAILY PO Last administered on 03/02/18at 08 :02; Start 02/28/18 at 11:00 Cyanocobalamin (Vitamin B12 Inj) 1,000 mcg DAILY SQ Last administered on at 09:23; Start 02/23/18 at 09:15; Stop 02/26/18 at 09:14; Status DC Dextrose (D50w (Vial) Inj) 50 ml UNSCH PRN IV PUSH HYPOGLYCEMIA-SEE COMMENTS; Start 02/21/18 at 23:15 Glucagon (Glucagon Inj) 1 mg UNSCH PRN OTHER HYPOGLYCEMIA-SEE COMMENTS; Start 02/21/18 at 23:15 Heparin Sodium (Porcine) (Heparin Inj) 5,000 units Q12HR SQ Last administered on 03/02/18at 21:35; Start 03/01/18 at 09:00 Heparin Sodium/ Dextrose 250 ml @ 12 mls/hr TITRATE PRN IV Coagulation Management Last administered on 02/28/18at 06:11; Start 02/25/18 at 18:00; Stop at 09:42; Status DC Insulin Aspart (NovoLOG SUPPLEMENTAL SCALE) 1 ACHS SQ Last administered on 03/02at 21:34; Start 02/22/18 at 08:00 Lactulose (Lactulose Liq) 30 ml DAILY PRN PO SEVERE CONSITIPATION Last administered on 03/01/18at 10:49; Start 02/21/18 at 23:15 Lisinopril (Prinivil) 10 mg DAILY PO ; Start 02/27/18 at 09:00; Stop 02/27/18 at 09:00; Status DC Lorazepam (Ativan Inj) 1 mg ONCE ONCE IV PUSH Last administered on 02/24/18at 14 :44; Start 02/24/18 at 14:15; Stop 02/24/18 at 14:16; Status DC Magnesium Hydroxide (Milk Of Magnesia Liq) 30 ml Q12H PRN PO Mild constipation Last administered on 02/27/18at 08:41; Start 02/23/18 at 08:15 Magnesium Sulfate/ Dextrose 100 ml @ 100 mls/hr ONCE ONCE IV Last administered on 02/21/18at 23:37; Start 02/21/18 at 23:15; Stop 02/22/18 at 00:14; Status DC Methylprednisolone Sodium Succinate (SoluMEDROL INJ) 40 mg ONCE ONCE IV PUSH Last administered on 02/25/18 11:29; Start 02/25/18 at 09:00; Stop 02/25/18 at 09: 01; Status DC Naloxone HCl (Narcan Inj) 0.4 mg UNSCH PRN IV PUSH SEE LABEL COMMENTS; Start at 08:15 Nifedipine (Procardia Xl) 60 mg DAILY PO Last administered on 03/02/18at 08:00; Start 02/23/18 at 09:00 Nystatin (Mycostatin Powder) 1 applic Q8HR TOPICAL Last administered on at 06:04; Start 02/22/18 at 14:00 Ondansetron HCl (Zofran Inj) 4 mg Q6H PRN IVP NAUSEA OR VOMITING Last administered on 02/23/18 10:53; Start 02/21/18 at 23:15 Sennosides (Senokot) 17.2 mg Q12H PRN PO Moderate constipation Last administered on 03/01/18 05:43; Start 02/23/18 at 08:15 Sodium Chloride 1,000 ml @ 60 mls/hr [id number] ONCE IV Last administered on at 17:02; Start 02/27/18 at 21:37; Stop 02/28/18 at 14:16; Status DC Sodium Chloride (NS Flush) 2 ml BID IV FLUSH Last administered on 03/02/18at 21: 35; Start 02/22/18 at 09:00 A/P Problem List: (1) Acute ischemic stroke ICD Code: I63.9 - Cerebral infarction, unspecified (2) Diabetes mellitus ICD Code: E11.9 - Type 2 diabetes mellitus without complications (3) HTN (hypertension) ICD Code: I10 - Essential (primary) hypertension (4) Morbid obesity with BMI of 50.0-59.9, adult ICD Code: E66.01 - Morbid (severe) obesity due to excess calories; Z68.43 - Body mass index (BMI) 50-59.9 , adult Assessment and Plan A/P CVA Ischemic stroke affecting left MCA [facility] Neurology evaluated and patient has had some increased weakness on her left side continue aspirin and plavix; will dc aspirin tomorrow and continue with plavix- per neurology. continue statin Continue supportive care, PT, OT, speech neurology cleared for discharge. Low back pain Patient has a history of low back pain which has been aggravated by her lying on her back for 3 days At her baseline she walks with 2 canes due to back pain and bad knees continue pain control. Type 2 diabetes Hemoglobin A1c was 7.0 Continue sliding-scale coverage with Accu-Cheks Diabetic diet Hypertension permissive hypertension for now. will try to keep the systolic BP around 160 for three days then gradually lower the BP- per neurology. Morbid obesity Patient will be counseled on the effects of obesity on risk of stroke DVT prophylaxis SCD's Discharge Planning ok for discharge- [facility] is following. awaiting the insurance authorization. see med list. f/u; pcp and neurology. d/w the patient and her . time spent 35 min. Miguel Kruse MD March 03, 2018 08:32
[2018-03-03] MEDS: SODIUM CHLORIDE 0.9% FLUSH 10 ML FLUSH IV FLUSH SCH ×2 (09:00→21:11)
[2018-03-03] MEDS: NIFEdipine 60 MG SUSTAINED RELEASE TAB PO SCH (09:15)
[2018-03-03] MEDS: ASPIRIN EC 325 MG TABEC PO SCH (09:15)
[2018-03-03] MEDS: CLOPIDOGREL 75 MG TAB PO SCH (09:16)
[2018-03-03] MEDS: HEPARIN SODIUM - SQ 10,000 UNITS/ML VIAL SQ SCH ×2 (09:20→21:11)
[2018-03-03] MEDS: ACETAMINOPHEN 325 MG TAB PO PRN (13:12)
[2018-03-03] MEDS: ATORVASTATIN 40 MG TAB PO SCH (21:10)
[2018-03-03] MEDS: RESP: ALBUTEROL 2.5 MG/IPRATROPIUM 0.5 MG NEB (PRN) NEB (21:12)
[2018-03-04] VITALS (10 sets, daily range): BP systolic 129–168; BP diastolic 62–77; PULSE 69–93; RESP 17–20; TEMP 97.4–98.7; O2SAT 93–98
[2018-03-04] MEDS: NYSTATIN 100,000 U/GM PWD 15 GM BTL TOPICAL SCH ×3 (04:56→21:28)
[2018-03-04] MEDS: CLOPIDOGREL 75 MG TAB PO SCH (08:30)
[2018-03-04] MEDS: ACETAMINOPHEN/HYDROcodone 325 MG/5 MG TAB PO PRN ×3 (08:30→21:27)
[2018-03-04] MEDS: HEPARIN SODIUM - SQ 10,000 UNITS/ML VIAL SQ SCH ×2 (08:30→21:24)
[2018-03-04] MEDS: NIFEdipine 60 MG SUSTAINED RELEASE TAB PO SCH (08:30)
[2018-03-04] MEDS: SODIUM CHLORIDE 0.9% FLUSH 10 ML FLUSH IV FLUSH SCH ×2 (08:31→21:28)
--- NOTE | 2018-03-04 08:56 | HHI.PR ---
Subjective Remarks in no acute distress. has some pain to the legs but she says that the pain meds help. no new complaints. d/w the RN. Objective Vitals Vital Signs Date Time Temp Pulse Resp B/P (MAP) Pulse Ox O2 Delivery O2 Flow Rate FiO2 03/04/18 08:39 Nasal Cannula 2.00 03/04/18 04:51 97.9 92 20 157/73 (101) 96 03/04/18 04:00 87 03/04/18 00:15 84 03/04/18 00:15 97.6 84 20 141/69 (93) 94 03/03/18 21:13 93 Nasal Cannula 2.00 03/03/18 20:06 98.0 98 18 150/66 (94) 94 03/03/18 20:00 64 03/03/18 19:50 Nasal Cannula 2.00 03/03/18 16:17 98.0 96 20 124/60 (81) 95 03/03/18 12:19 97.4 100 20 119/56 (77) 100 03/03/18 12:15 97 Nasal Cannula 2.00 I/O 03/03/18 03/03/18 03/03/18 03/04/18 03/04/18 03/04/18 07:00 15:00 23:00 07:00 15:00 23:00 Output Total 0 ml Balance 0 ml Stool Total 0 ml # Voids 2 4 3 Result Diagram: 02/28/18 0104 Imaging Last Impressions Brain MRI 02/24/18 0000 Signed Impressions: Service Date/Time: Saturday, February 24, 2018 14:58 - CONCLUSION: No change in acute infarct in the right basal ganglia. Jax Bran MD Neck Magnetic Resonance Angiography 02/22/18 0901 Signed Impressions: Service Date/Time: Thursday, February 22, 2018 10:06 - CONCLUSION: Negative MRA of the carotids for source of emboli. 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 Aleksandr Clay MD FACR Carotid Artery Ultrasound 02/22/18 0000 Signed Impressions: Service Date/Time: Thursday, February 22, 2018 08:21 - CONCLUSION: 1. Elevated velocities in the proximal common carotid artery which may reflect an ostial stenosis not imaged on this exam. 2. Mild bilateral carotid plaque with mild, less than 50%%, stenosis. Pro Tejeda MD Head CT 02/21/181954 Signed Impressions: Service Date/Time: February 21:54 - CONCLUSION: 1. Remote infarct right periventricular white matter with white matter ischemic changes. No acute findings. Andrés Recinos MD Chest X-Ray 02/21/181954 Signed Impressions: Service Date/Time: February 20:01 - CONCLUSION: 1. Minimal basilar atelectasis. Andrés Recinos MD Tibia/Fibula X-Ray 02/21/18 Signed Impressions: Service Date/Time: February 20:03 - CONCLUSION: 1. Advanced osteoarthritis of the left knee. No acute bony abnormality. Andrés Recinos MD Lower Extremity Ultrasound 02/21/18 Signed Impressions: Service Date/Time: February 21:23 - CONCLUSION: 1. Negative for deep venous thrombosis. There is a left popliteal fossa cyst measuring up to 5.6 x 4.2 x 1.6 cm. Andrés Recinos MD CT Angiography 02/21/18 Signed Impressions: Service Date/Time: February 22:02 - CONCLUSION: 1. No filling defects to suggest pulmonary embolus. Scattered minimal atelectasis or scarring in the lungs. No effusions. Andrés Recinos MD Objective Remarks GENERAL: This is a well-nourished, well-developed patient, in no apparent distress. CARDIOVASCULAR: Regular rate and regular rhythm without murmurs, gallops, or rubs. RESPIRATORY: Clear to auscultation. Breath sounds equal bilaterally. No wheezes , rales, or rhonchi. GASTROINTESTINAL: Abdomen soft, non-tender, nondistended. Normal, active bowel sounds MUSCULOSKELETAL:left upper extremity weakness NEURO: Alert & Oriented x4 to person, place, time, situation. Procedures None Medications and IVs Inpatient Medications Acetaminophen (Tylenol) 650 mg Q4H PRN PO PAIN 1-5 Last administered on at 13:12; Start 02/25/18 at 08:45 Acetaminophen/ Hydrocodone Bitart ([place] 5-325 Mg) 1 tab Q6H PRN PO PAIN 6-10 Last administered on 03/04/18at 08:30; Start 02/28/18 at 10:00 Albuterol/ Ipratropium (Duoneb Neb) 1 ampule Q6HR NEB PRN NEB SHORTNESS OF BREATH Last administered on 03/03/18at 21:12; Start 02/27/18 at 10:15 Alprazolam (Xanax) 0.25 mg Q6H PRN PO anxiety Last administered on 02/27/18at 05: 41; Start 02/24/18 at 10:30; Stop 02/27/18 at 07:46; Status DC Amlodipine Besylate (Norvasc) 5 mg DAILY PO ; Start 02/23/18 at 09:00; Stop at 09:00; Status DC Aspirin (Aspirin Chew) 324 mg ONCE ONCE CHEW Last administered on 02/22/18at 03: 15; Start 02/21/18 at 23:45; Stop 02/21/18 at 23:46; Status DC Aspirin (Aspirin) 325 mg STAT STAT PO Last administered on 02/22/18at 22:23; Start 02/22/18 at 22:17; Stop 02/22/18 at 22:18; Status DC Aspirin (Ecotrin Ec) 325 mg DAILY PO Last administered on 03/03/18at 09:15; Start 02/28/18 at 18:00; Stop 03/03/18 at 17:59; Status DC Atorvastatin Calcium (Lipitor) 40 mg HS PO Last administered on 03/03/18at 21:10 ; Start 02/22/18 at 21:00 Bisacodyl (Dulcolax Supp) 10 mg DAILY PRN RECTAL SEVERE CONSITIPATION Last administered on 03/02/18at 05:45; Start 02/23/18 at 08:15 Clonidine (Catapres) 0.1 mg Q6H PRN PO SBP> OR = 180, DBP> OR = 100; Start 02/23 at 07:15; Stop 02/25/18 at 08:21; Status DC Clopidogrel Bisulfate (Plavix) 75 mg DAILY PO Last administered on 03/04/18at 08 :30; Start 02/28/18 at 11:00 Cyanocobalamin (Vitamin B12 Inj) 1,000 mcg DAILY SQ Last administered on at 09:23; Start 02/23/18 at 09:15; Stop 02/26/18 at 09:14; Status DC Dextrose (D50w (Vial) Inj) 50 ml UNSCH PRN IV PUSH HYPOGLYCEMIA-SEE COMMENTS; Start 02/21/18 at 23:15 Glucagon (Glucagon Inj) 1 mg UNSCH PRN OTHER HYPOGLYCEMIA-SEE COMMENTS; Start 02/21/18 at 23:15 Heparin Sodium (Porcine) (Heparin Inj) 5,000 units Q12HR SQ Last administered on 03/04/18at 08:30; Start 03/01/18 at 09:00 Heparin Sodium/ Dextrose 250 ml @ 12 mls/hr TITRATE PRN IV Coagulation Management Last administered on 02/28/18at 06:11; Start 02/25/18 at 18:00; Stop at 09:42; Status DC Insulin Aspart (NovoLOG SUPPLEMENTAL SCALE) 1 ACHS SQ Last administered on 03/03at 21:11; Start 02/22/18 at 08:00 Lactulose (Lactulose Liq) 30 ml DAILY PRN PO SEVERE CONSITIPATION Last administered on 03/01/18at 10:49; Start 02/21/18 at 23:15 Lisinopril (Prinivil) 10 mg DAILY PO ; Start 02/27/18 at 09:00; Stop 02/27/18 at 09:00; Status DC Lorazepam (Ativan Inj) 1 mg ONCE ONCE IV PUSH Last administered on 02/24/18at 14 :44; Start 02/24/18 at 14:15; Stop 02/24/18 at 14:16; Status DC Magnesium Hydroxide (Milk Of Magnesia Liq) 30 ml Q12H PRN PO Mild constipation Last administered on 02/27/18at 08:41; Start 02/23/18 at 08:15 Magnesium Sulfate/ Dextrose 100 ml @ 100 mls/hr ONCE ONCE IV Last administered on 02/21/18at 23:37; Start 02/21/18 at 23:15; Stop 02/22/18 at 00:14; Status DC Methylprednisolone Sodium Succinate (SoluMEDROL INJ) 40 mg ONCE ONCE IV PUSH Last administered on 5/7/18at 11:29; Start 02/25/18 at 09:00; Stop 02/25/18 at 09: 01; Status DC Naloxone HCl (Narcan Inj) 0.4 mg UNSCH PRN IV PUSH SEE LABEL COMMENTS; Start at 08:15 Nifedipine (Procardia Xl) 60 mg DAILY PO Last administered on 03/04/18 08:30; Start 02/23/18 at 09:00 Nystatin (Mycostatin Powder) 1 applic Q8HR TOPICAL Last administered on 04:56; Start 02/22/18 at 14:00 Ondansetron HCl (Zofran Inj) 4 mg Q6H PRN IVP NAUSEA OR VOMITING Last administered on 02/23/18 10:53; Start 02/21/18 at 23:15 Sennosides (Senokot) 17.2 mg Q12H PRN PO Moderate constipation Last administered on 03/01/18 05:43; Start 02/23/18 at 08:15 Sodium Chloride 1,000 ml @ 60 mls/hr [id number] ONCE IV Last administered on at 17:02; Start 02/27/18 at 21:37; Stop 02/28/18 at 14:16; Status DC Sodium Chloride (NS Flush) 2 ml BID IV FLUSH Last administered on 03/04/18 08: 31; Start 02/22/18 at 09:00 A/P Problem List: (1) Acute ischemic stroke ICD Code: I63.9 - Cerebral infarction, unspecified (2) Diabetes mellitus ICD Code: E11.9 - Type 2 diabetes mellitus without complications (3) HTN (hypertension) ICD Code: I10 - Essential (primary) hypertension (4) Morbid obesity with BMI of 50.0-59.9, adult ICD Code: E66.01 - Morbid (severe) obesity due to excess calories; Z68.43 - Body mass index (BMI) 50-59.9 , adult Assessment and Plan A/P CVA Ischemic stroke affecting left MCA [facility] [place] Neurology evaluated and patient has had some increased weakness on her left side stopped aspirin- continue Plavix continue statin Continue supportive care, PT, OT, speech neurology cleared for discharge. Low back pain Patient has a history of low back pain which has been aggravated by her lying on her back for 3 days At her baseline she walks with 2 canes due to back pain and bad knees continue pain control. Type 2 diabetes Hemoglobin A1c was 7.0 Continue sliding-scale coverage with Accu-Cheks Diabetic diet Hypertension continue Procardia . Morbid obesity Patient will be counseled on the effects of obesity on risk of stroke DVT prophylaxis SCD's Discharge Planning ok for discharge- [facility] is following. awaiting the insurance authorization. see med list. f/u; pcp and neurology. d/w the patient and her . time spent 35 min. Miguel Kruse MD March 04, 2018 08:56
[2018-03-04] MEDS: INSULIN ASPART SUPPLEMENTAL SCALE SQ SCH ×4 (09:04→21:25)
--- NOTE | 2018-03-04 09:54 | HHI.PR ---
Subjective Remarks sr still Objective Vital Signs Date Time Temp Pulse Resp B/P (MAP) Pulse Ox O2 Delivery O2 Flow Rate FiO2 03/04/18 08:39 Nasal Cannula 2.00 03/04/18 08:00 97.4 93 17 154/72 (99) 94 03/04/18 04:51 97.9 92 20 157/73 (101) 96 03/04/18 04:00 87 03/04/18 00:15 84 03/04/18 00:15 97.6 84 20 141/69 (93) 94 03/03/18 21:13 93 Nasal Cannula 2.00 03/03/18 20:06 98.0 98 18 150/66 (94) 94 03/03/18 20:00 64 03/03/18 19:50 Nasal Cannula 2.00 03/03/18 16:17 98.0 96 20 124/60 (81) 95 03/03/18 12:19 97.4 100 20 119/56 (77) 100 03/03/18 12:15 97 Nasal Cannula 2.00 I/O 03/03/18 03/03/18 03/03/18 03/04/18 03/04/18 03/04/18 07:00 15:00 23:00 07:00 15:00 23:00 Output Total 0 ml Balance 0 ml Stool Total 0 ml # Voids 2 4 3 Result Diagram: 02/28/18 0104 Objective Remarks vff left droop little better tongue midline left tricep 0/5 left finger ext 0/5 and left ip 2/5 cannot wiggle left thumb and index but did rotate hand same and foot can move +speechbetter Assessment and Plan Assessment and Plan imp r watershed mca margaret cva left distal mca dz mra neck nl echo and holterpend still b12 shots hx pe check hyper,screen keep bp up ivf on hob down today as has worsened again since yest add plavix recheck mri 02/25/18 worse overnoc very weak on left now despite asa plavix sq hep ivf and hob down i reviewed mri this is a slowly inc deep mca penetrator change to ivhep 02/26/18 doing better this am left side a litle stronger if she maintains this today will will start to get her oob tomorrow iv hep on 02/27/18 unclear how much left movement could be slight neglect cannot move left hand at all now this am was doing better yest hob 45 degrees keep bp up ivf on will slowly get up may have worsened again overnoc echo and holter neg 02/28/18 unfortunately has slowly progressed left hp and arm no movement and lle not great oob ok dc hep asa and plavix will need rehab keep bp up and ivf on 03/01/18 may have some inadvertent neglect movement lue? stable overnoc was oob yest ok for rehab dc asa in 3 days plavix keep bp up to 160/for 3 days then could lower it 03/04/18 stable neuro ready for rehab ok to run 120-140/ she will benefit more [email or web address] [facility] Willem Ding MD March 04, 2018 09:54
[2018-03-04] MEDS: RESP: ALBUTEROL 2.5 MG/IPRATROPIUM 0.5 MG NEB (PRN) NEB (14:22)
[2018-03-04] MEDS: ATORVASTATIN 40 MG TAB PO SCH (21:25)
[2018-03-05] VITALS (7 sets, daily range): BP systolic 124–166; BP diastolic 67–88; PULSE 78–95; RESP 18–20; TEMP 97.2–98.4; O2SAT 90–98
[2018-03-05] MEDS: ACETAMINOPHEN/HYDROcodone 325 MG/5 MG TAB PO PRN ×3 (03:43→15:18)
[2018-03-05] MEDS: LACTULOSE SYRUP 20 GM/30 ML CUP PO PRN (06:08)
[2018-03-05] MEDS: NYSTATIN 100,000 U/GM PWD 15 GM BTL TOPICAL SCH ×2 (06:08→12:58)
[2018-03-05] MEDS: CLOPIDOGREL 75 MG TAB PO SCH (08:58)
[2018-03-05] MEDS: HEPARIN SODIUM - SQ 10,000 UNITS/ML VIAL SQ SCH (08:58)
[2018-03-05] MEDS: NIFEdipine 60 MG SUSTAINED RELEASE TAB PO SCH (08:58)
[2018-03-05] MEDS: SENNOSIDES 8.6 MG TAB PO PRN (08:58)
[2018-03-05] MEDS: SODIUM CHLORIDE 0.9% FLUSH 10 ML FLUSH IV FLUSH SCH (08:59)
[2018-03-05] MEDS: INSULIN ASPART SUPPLEMENTAL SCALE SQ SCH ×2 (08:59→12:58)
[2018-03-05] MEDS: RESP: ALBUTEROL 2.5 MG/IPRATROPIUM 0.5 MG NEB (PRN) NEB (09:33)
--- NOTE | 2018-03-05 10:25 | HHI.PR ---
Subjective Remarks in no distress. no new complaints. awaiting rehab. Objective Vitals Vital Signs Date Time Temp Pulse Resp B/P (MAP) Pulse Ox O2 Delivery O2 Flow Rate FiO2 03/05/18 09:57 Nasal Cannula 2.00 03/05/18 09:36 95 Nasal Cannula 2.00 03/05/18 08:00 98.4 95 19 124/67 (86) 90 03/05/18 06:00 97.2 93 19 166/75 (105) 94 03/05/18 04:19 85 03/05/18 00:30 81 03/05/18 00:20 98.0 78 20 148/88 (108) 98 03/04/18 22:00 98.7 69 19 129/68 (88) 98 03/04/18 21:17 98.0 88 20 168/77 (107) 96 03/04/18 20:00 93 03/04/18 19:00 Nasal Cannula 2.00 03/04/18 16:00 98.0 89 18 135/62 (86) 93 03/04/18 16:00 88 03/04/18 12:00 97.8 85 18 136/66 (89) 94 03/04/18 12:00 85 I/O 03/04/18 03/04/18 03/04/18 03/05/18 03/05/18 03/05/18 07:00 15:00 23:00 07:00 15:00 23:00 Intake Total 1700 ml 850 ml Balance 1700 ml 850 ml Intake Oral 1700 ml 850 ml # Voids 3 5 2 # Bowel Movements 0 0 Imaging Last Impressions Brain MRI 02/24/18 0000 Signed Impressions: Service Date/Time: Saturday, February 24, 2018 14:58 - CONCLUSION: No change in acute infarct in the right basal ganglia. Jax Bran MD Neck Magnetic Resonance Angiography 02/22/18 0901 Signed Impressions: Service Date/Time: Thursday, February 22, 2018 10:06 - CONCLUSION: Negative MRA of the carotids for source of emboli. 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 Aleksandr Clay MD FACR Carotid Artery Ultrasound 02/22/18 0000 Signed Impressions: Service Date/Time: Thursday, February 22, 2018 08:21 - CONCLUSION: 1. Elevated velocities in the proximal common carotid artery which may reflect an ostial stenosis not imaged on this exam. 2. Mild bilateral carotid plaque with mild, less than 50%%, stenosis. Pro Tejeda MD Head CT 02/21/181954 Signed Impressions: Service Date/Time: February 21:54 - CONCLUSION: 1. Remote infarct right periventricular white matter with white matter ischemic changes. No acute findings. Andrés Recinos MD Chest X-Ray 02/21/181954 Signed Impressions: Service Date/Time: February 20:01 - CONCLUSION: 1. Minimal basilar atelectasis. Andrés Recinos MD Tibia/Fibula X-Ray 02/21/18 0000 Signed Impressions: Service Date/Time: February 20:03 - CONCLUSION: 1. Advanced osteoarthritis of the left knee. No acute bony abnormality. Andrés Recinos MD Lower Extremity Ultrasound 02/21/18 0000 Signed Impressions: Service Date/Time: February 21:23 - CONCLUSION: 1. Negative for deep venous thrombosis. There is a left popliteal fossa cyst measuring up to 5.6 x 4.2 x 1.[address] cm. Andrés Recinos MD CT Angiography 02/21/18 0000 Signed Impressions: Service Date/Time: February 22:02 - CONCLUSION: 1. No filling defects to suggest pulmonary embolus. Scattered minimal atelectasis or scarring in the lungs. No effusions. Andrés Recinos MD Objective Remarks GENERAL: This is a well-nourished, well-developed patient, in no apparent distress. CARDIOVASCULAR: Regular rate and regular rhythm without murmurs, gallops, or rubs. RESPIRATORY: Clear to auscultation. Breath sounds equal bilaterally. No wheezes , rales, or rhonchi. GASTROINTESTINAL: Abdomen soft, non-tender, nondistended. Normal, active bowel sounds MUSCULOSKELETAL:left upper extremity weakness NEURO: Alert & Oriented x4 to person, place, time, situation. Procedures None Medications and IVs Inpatient Medications Acetaminophen (Tylenol) 650 mg Q4H PRN PO PAIN 1-5 Last administered on 13:12; Start 02/25/18 at 08:45 Acetaminophen/ Hydrocodone Bitart ([place] 5-325 Mg) 1 tab Q6H PRN PO PAIN 6-10 Last administered on 03/05/18at 08:59; Start 02/28/18 at 10:00 Albuterol/ Ipratropium (Duoneb Neb) 1 ampule Q6HR NEB PRN NEB SHORTNESS OF BREATH Last administered on 03/05/18at 09:33; Start 02/27/18 at 10:15 Alprazolam (Xanax) 0.25 mg Q6H PRN PO anxiety Last administered on 02/27/18 05: 41; Start 02/24/18 at 10:30; Stop 02/27/18 at 07:46; Status DC Amlodipine Besylate (Norvasc) 5 mg DAILY PO ; Start 02/23/18 at 09:00; Stop at 09:00; Status DC Aspirin (Aspirin Chew) 324 mg ONCE ONCE CHEW Last administered on 02/22/18 03: 15; Start 02/21/18 at 23:45; Stop 02/21/18 at 23:46; Status DC Aspirin (Aspirin) 325 mg STAT STAT PO Last administered on 02/22/18 22:23; Start 02/22/18 at 22:17; Stop 02/22/18 at 22:18; Status DC Aspirin (Ecotrin Ec) 325 mg DAILY PO Last administered on 03/03/18at 09:15; Start 02/28/18 at 18:00; Stop 03/03/18 at 17:59; Status DC Atorvastatin Calcium (Lipitor) 40 mg HS PO Last administered on 03/04/18at 21:25 ; Start 02/22/18 at 21:00 Bisacodyl (Dulcolax Supp) 10 mg DAILY PRN RECTAL SEVERE CONSITIPATION Last administered on 03/02/18at 05:45; Start 02/23/18 at 08:15 Clonidine (Catapres) 0.1 mg Q6H PRN PO SBP> OR = 180, DBP> OR = 100; Start 02/23 at 07:15; Stop 02/25/18 at 08:21; Status DC Clopidogrel Bisulfate (Plavix) 75 mg DAILY PO Last administered on 03/05/18at 08 :58; Start 02/28/18 at 11:00 Cyanocobalamin (Vitamin B12 Inj) 1,000 mcg DAILY SQ Last administered on at 09:23; Start 02/23/18 at 09:15; Stop 02/26/18 at 09:14; Status DC Dextrose (D50w (Vial) Inj) 50 ml UNSCH PRN IV PUSH HYPOGLYCEMIA-SEE COMMENTS; Start 02/21/18 at 23:15 Glucagon (Glucagon Inj) 1 mg UNSCH PRN OTHER HYPOGLYCEMIA-SEE COMMENTS; Start 02/21/18 at 23:15 Heparin Sodium (Porcine) (Heparin Inj) 5,000 units Q12HR SQ Last administered on 03/05/18at 08:58; Start 03/01/18 at 09:00 Heparin Sodium/ Dextrose 250 ml @ 12 mls/hr TITRATE PRN IV Coagulation Management Last administered on 02/28/18at 06:11; Start 02/25/18 at 18:00; Stop at 09:42; Status DC Insulin Aspart (NovoLOG SUPPLEMENTAL SCALE) 1 ACHS SQ Last administered on 03/05at 08:59; Start 02/22/18 at 08:00 Lactulose (Lactulose Liq) 30 ml DAILY PRN PO SEVERE CONSITIPATION Last administered on 03/05/18at 06:08; Start 02/21/18 at 23:15 Lisinopril (Prinivil) 10 mg DAILY PO ; Start 02/27/18 at 09:00; Stop 02/27/18 at 09:00; Status DC Lorazepam (Ativan Inj) 1 mg ONCE ONCE IV PUSH Last administered on 02/24/18at 14 :44; Start 02/24/18 at 14:15; Stop 02/24/18 at 14:16; Status DC Magnesium Hydroxide (Milk Of Magnesia Liq) 30 ml Q12H PRN PO Mild constipation Last administered on 02/27/18at 08:41; Start 02/23/18 at 08:15 Magnesium Sulfate/ Dextrose 100 ml @ 100 mls/hr ONCE ONCE IV Last administered on 02/21/18at 23:37; Start 02/21/18 at 23:15; Stop 02/22/18 at 00:14; Status DC Methylprednisolone Sodium Succinate (SoluMEDROL INJ) 40 mg ONCE ONCE IV PUSH Last administered on 02/25/18at 11:29; Start 02/25/18 at 09:00; Stop 02/25/18 at 09: 01; Status DC Naloxone HCl (Narcan Inj) 0.4 mg UNSCH PRN IV PUSH SEE LABEL COMMENTS; Start at 08:15 Nifedipine (Procardia Xl) 60 mg DAILY PO Last administered on 03/05/18at 08:58; Start 02/23/18 at 09:00 Nystatin (Mycostatin Powder) 1 applic Q8HR TOPICAL Last administered on at 06:08; Start 02/22/18 at 14:00 Ondansetron HCl (Zofran Inj) 4 mg Q6H PRN IVP NAUSEA OR VOMITING Last administered on 02/23/18at 10:53; Start 02/21/18 at 23:15 Sennosides (Senokot) 17.2 mg Q12H PRN PO Moderate constipation Last administered on 03/05/18at 08:58; Start 02/23/18 at 08:15 Sodium Chloride 1,000 ml @ 60 mls/hr [id number] ONCE IV Last administered on at 17:02; Start 02/27/18 at 21:37; Stop 02/28/18 at 14:16; Status DC Sodium Chloride (NS Flush) 2 ml BID IV FLUSH Last administered on 03/05/18at 08: 59; Start 02/22/18 at 09:00 A/P Problem List: (1) Acute ischemic stroke ICD Code: I63.9 - Cerebral infarction, unspecified (2) Diabetes mellitus ICD Code: E11.9 - Type 2 diabetes mellitus without complications (3) HTN (hypertension) ICD Code: I10 - Essential (primary) hypertension (4) Morbid obesity with BMI of 50.0-59.9, adult ICD Code: E66.01 - Morbid (severe) obesity due to excess calories; Z68.43 - Body mass index (BMI) 50-59.9 , adult Assessment and Plan A/P CVA Ischemic stroke affecting left MCA [facility] Neurology evaluated and patient has had some increased weakness on her left side stopped aspirin- continue Plavix continue statin Continue supportive care, PT, OT, speech neurology cleared for discharge. Low back pain Patient has a history of low back pain which has been aggravated by her lying on her back for 3 days At her baseline she walks with 2 canes due to back pain and bad knees continue pain control. Type 2 diabetes Hemoglobin A1c was 7.0 Continue sliding-scale coverage with Accu-Cheks Diabetic diet Hypertension-overall improving. continue Procardia . Morbid obesity Patient will be counseled on the effects of obesity on risk of stroke DVT prophylaxis SCD's Discharge Planning ok for discharge- [facility] is following. awaiting the insurance authorization. see med list. f/u; pcp and neurology. d/w the patient and her . time spent 35 min. Miguel Kruse MD March 05, 2018 10:25
== END 2018-03-05 17:13 | DRG 65 ==
LOC: NEPC 19:42 → NEDA 22:56 → NEPHCDU 02-22 00:04 → OBSVTOIN 02-22 22:31 → HIMW 02-22 22:50 → N05A 02-24 18:51
PROVIDERS: ADMIT Family Medicine; ATTEND Family Medicine
DX: I63.522 Cerebral infarction due to unspecified occlusion or stenosis of left anterior cerebral artery (principal); G81.94 Hemiplegia, unspecified affecting left nondominant side; Z68.43 Body mass index [BMI] 50.0-59.9, adult; I10 Essential (primary) hypertension; I63.512 Cerebral infarction due to unspecified occlusion or stenosis of left middle cerebral artery; E66.01 Morbid (severe) obesity due to excess calories; M79.605 Pain in left leg; R47.81 Slurred speech; R32 Unspecified urinary incontinence; R74.8 Abnormal levels of other serum enzymes; M10.9 Gout, unspecified; M19.90 Unspecified osteoarthritis, unspecified site; E11.9 Type 2 diabetes mellitus without complications; Z79.84 Long term (current) use of oral hypoglycemic drugs; Z86.711 Personal history of pulmonary embolism; M06.9 Rheumatoid arthritis, unspecified; E78.5 Hyperlipidemia, unspecified; R29.810 Facial weakness; Z79.82 Long term (current) use of aspirin; M54.5 Low back pain
CPT/HCPCS: 70450; 70544; 70548; 70551; 70553; 71045; 71275; 73590; 76937; 80048; 80053; 80061; 81001; 81240; 81241; 81291; 82550; 82607; 82746; 82948; 83036; 83735; 84425; 84443; 84450; 84460; 84484; 85025; 85027; 85240; 85300; 85303; 85306; 85610; 85613; 85652; 85730; 86038; 86147; 86592; 87641; 93005; 93225; 93226; 93306; 93880; 93971; 94640; 94664; A9579; G8987-GP; G8988-GP; J1644; J1815; J2060; J2405; J2920; J3420; J3475; J7030; J7040; Q9967